=== PATIENT | male | born 1960 | race Caucasian/White ===

== ENCOUNTER 2016-06-03 09:09 | Outpatient (CLI) | payer MEDICAID | END 2016-06-03 09:10 | disposition home or self-care (01) | DX: E78.5 Hyperlipidemia, unspecified (principal); K43.9 Ventral hernia without obstruction or gangrene; E55.9 Vitamin D deficiency, unspecified ==

== ENCOUNTER 2016-09-28 08:00 | Outpatient (CLI) | payer MEDICAID ==
[2016-09-28 12:59] LABS: ALBUMIN/GLOBULIN RATIO 1.2 (1.0-2.2); BILIRUBIN,TOTAL 0.5 mg/dL (0.2-1.0); CALCIUM 8.8 mg/dL (8.5-10.3); CREATININE 0.9 mg/dL (0.6-1.2); POTASSIUM 3.9 mmol/L (3.5-5.0); TOTAL PROTEIN 7.3 g/dL (6.7-8.2)
[2016-09-28 13:10] LABS: HEMOGLOBIN A1C 0.83 g/dL
== END 2016-09-28 08:01 | disposition home or self-care (01) ==
LOC: LAB.N 08:00
PROVIDERS: ATTEND Family Medicine
DX: E11.9 Type 2 diabetes mellitus without complications (principal)
CPT/HCPCS: 36415; 80053; 83036

== ENCOUNTER 2017-01-04 08:00 | Outpatient (CLI) | payer MEDICAID ==
[2017-01-04 13:03] LABS: HEMOGLOBIN A1C 1.09 g/dL
[2017-01-04 14:22] LABS: CALCIUM 9.1 mg/dL (8.5-10.3)
[2017-01-04 14:34] LABS: ALBUMIN/GLOBULIN RATIO 1.1 (1.0-2.2); BILIRUBIN,TOTAL 0.5 mg/dL (0.2-1.0); CREATININE 0.8 mg/dL (0.6-1.2); TOTAL PROTEIN 7.6 g/dL (6.7-8.2)
== END 2017-01-04 08:01 | disposition home or self-care (01) ==
LOC: LAB.N 08:00
PROVIDERS: ATTEND Family Medicine
DX: Z87.898 Personal history of other specified conditions (principal)
CPT/HCPCS: 36415; 80053; 83036

== ENCOUNTER 2017-02-18 08:49 | Outpatient (CLI) | payer MEDICAID ==
--- NOTE | 2017-02-18 12:36 | XRAY Report ---
LUMBAR SPINE: 02/18/2017 COMPARISON: Lumbar spine 04/22/2009. INDICATION: Low back pain. TECHNIQUE: Three views of the lumbar spine. FINDINGS: Normal alignment. There is no evidence of acute fracture. No significant degenerative findings. Calcified gallstones are noted. IMPRESSION: CALCIFIED GALLSTONES. OTHERWISE NEGATIVE LUMBAR SPINE. JOB #: [id number] EXT JOB #: [id number] [facility]
== END 2017-02-18 08:50 | disposition home or self-care (01) ==
LOC: DI.N 08:49
PROVIDERS: ATTEND Family Medicine
DX: K80.80 Other cholelithiasis without obstruction (principal)
CPT/HCPCS: 72100

== ENCOUNTER 2017-05-20 08:34 | Outpatient (CLI) | payer MEDICAID ==
[2017-05-20 13:54] LABS: HB2 TOTAL 13.8 g/dL; HEMOGLOBIN A1C 1.33 g/dL
[2017-05-20 14:05] LABS: ALBUMIN/GLOBULIN RATIO 1.1 (1.0-2.2); BILIRUBIN,TOTAL 0.6 mg/dL (0.2-1.0); CALCIUM 8.6 mg/dL (8.5-10.3); CREATININE 0.8 mg/dL (0.6-1.2); TOTAL PROTEIN 7.6 g/dL (6.7-8.2)
[2017-05-21 10:21] LABS: HEPATITIS C ANTIBODY NON-REACTIVE (NON-REACTIVE)
[2017-05-21 10:22] LABS: HEPATITIS B SURFACE ANTIGEN NON-REACTIVE (NON-REACTIVE)
== END 2017-05-20 08:35 | disposition home or self-care (01) ==
LOC: LAB.N 08:34
PROVIDERS: ATTEND Family Medicine
DX: E11.9 Type 2 diabetes mellitus without complications (principal); R74.0 Nonspecific elevation of levels of transaminase and lactic acid dehydrogenase [LDH]; F10.10 Alcohol abuse, uncomplicated
CPT/HCPCS: 36415; 80053; 83036; 83540; 84466; 86317; 86704; 86709; 86803; 87340

== ENCOUNTER 2017-07-08 10:06 | Outpatient (CLI) | payer MEDICAID ==
--- NOTE | 2017-07-08 13:33 | XRAY Report ---
THREE-VIEW RIGHT HAND: 07/08/2017 CLINICAL INDICATION: Pain. FINDINGS: AP, lateral, and oblique views of the right hand demonstrate no evidence of fracture or dislocation. The joint spaces are preserved. No radiopaque foreign body is seen in the soft tissues. IMPRESSION: NORMAL RIGHT HAND. TD: 07/08/2017 13:32
== END 2017-07-08 10:07 | disposition home or self-care (01) ==
LOC: DI.N 10:06
PROVIDERS: ATTEND Family Medicine
DX: M79.641 Pain in right hand (principal)

== ENCOUNTER 2017-08-11 08:19 | Emergency (ER) | payer MEDICAID ==
[2017-08-11] MEDS ORDERED: BACITRACIN OINT TOP STA (09:17)
[2017-08-11] MEDS ORDERED: IBUPROFEN 400 MG TABLET PO STA (09:17)
[2017-08-11] MEDS ORDERED: TETANUS/DIPHTHERIA/PERTUSSIS 0.5 ML SYRINGE IM ONE (09:17)
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
[2017-08-11 10:44] VITALS: BP 173/100
== END 2017-08-11 10:45 | disposition home or self-care (01) ==
LOC: ED 08:19
DX: T21.12XA Burn of first degree of abdominal wall, initial encounter (principal); T24.102A Burn of first degree of unspecified site of left lower limb, except ankle and foot, initial encounter; S00.12XA Contusion of left eyelid and periocular area, initial encounter; X03.3XXA Fall due to controlled fire, not in building or structure, initial encounter; Z23 Encounter for immunization; I10 Essential (primary) hypertension; E78.00 Pure hypercholesterolemia, unspecified; J44.9 Chronic obstructive pulmonary disease, unspecified; K21.9 Gastro-esophageal reflux disease without esophagitis; M19.90 Unspecified osteoarthritis, unspecified site; M10.9 Gout, unspecified; Z98.84 Bariatric surgery status; Z87.891 Personal history of nicotine dependence
CPT/HCPCS: 90471; 90715; 99283; A9270

== ENCOUNTER 2017-08-19 08:00 | Outpatient (CLI) | payer MEDICAID | END 2017-08-19 08:01 | disposition home or self-care (01) | LOC: LAB.R 08:00 | PROVIDERS: ATTEND Family Medicine | DX: L03.116 Cellulitis of left lower limb (principal); T24.202A Burn of second degree of unspecified site of left lower limb, except ankle and foot, initial encounter | CPT/HCPCS: 87070; 87075; 87181; 87205 ==

== ENCOUNTER 2017-09-30 10:41 | Outpatient (CLI) | payer MEDICAID ==
[2017-09-30 14:10] LABS: HB2 TOTAL 13.8 g/dL; HEMOGLOBIN A1C 1.3 g/dL; HEMOGLOBIN A1C % 10.8 % (4.6-6.2)
[2017-09-30 14:22] LABS: ALKALINE PHOSPHATASE 68 IU/L (42-121); ALT ALANINE AMINOTRANSFERASE 65 IU/L (10-60); AST ASPARTATE AMINOTRANSFERASE 51 IU/L (10-42); BILIRUBIN,TOTAL 0.8 mg/dL (0.2-1.0); BUN - BLOOD UREA NITROGEN 15 mg/dL (6-20); CALCIUM 8.9 mg/dL (8.5-10.3); CARBON DIOXIDE - CO2 24 mmol/L (21-32); CHLORIDE 99 mmol/L (101-111); CHOL/HDL RATIO 3.7 (<5.0); CHOLESTEROL 208 mg/dL; CREATININE 0.7 mg/dL (0.6-1.2); GFR - MDRD 116 (>89); GLUCOSE 247 mg/dL (70-100); HDL CHOLESTEROL 56 mg/dL; LDL CHOLESTEROL,CALCULATED 101 mg/dL; LDL/HDL RATIO 1.8 (<3.6); SODIUM 133 mmol/L (135-145); TOTAL PROTEIN 7.9 g/dL (6.7-8.2); VLDL CHOLESTEROL 51 mg/dL
== END 2017-09-30 10:42 | disposition home or self-care (01) ==
LOC: LAB.N 10:41
PROVIDERS: ATTEND Family Medicine
DX: E78.5 Hyperlipidemia, unspecified (principal); E11.9 Type 2 diabetes mellitus without complications
CPT/HCPCS: 36415; 80053; 80061; 83036; 83721

== ENCOUNTER 2017-10-25 11:12 | Outpatient (CLI) | payer MEDICAID ==
--- NOTE | 2017-10-25 16:55 | Ultrasound Report ---
Procedure Date: 10/25/2017 Accession Number: [id number] / [id number] Procedure: US - Abdomen Limited CPT Code: FULL RESULT: EXAM: ABDOMEN ULTRASOUND LIMITED, RIGHT UPPER QUADRANT. EXAM DATE: 10/25/2017 12:23 PM. CLINICAL HISTORY: Hernia of anterior abdominal wall. COMPARISON: None. TECHNIQUE: Real-time scanning was performed with static images obtained. FINDINGS: Focal grayscale ultrasound of the palpable abdominal mass was performed. There is a 2.6 cm abdominal wall defect containing fat. IMPRESSION: Fat-containing umbilical hernia. RADIA
== END 2017-10-25 11:13 | disposition home or self-care (01) ==
LOC: DI 11:12
PROVIDERS: ATTEND Family Medicine
DX: K43.9 Ventral hernia without obstruction or gangrene (principal); K42.9 Umbilical hernia without obstruction or gangrene
CPT/HCPCS: 76705

== ENCOUNTER 2017-12-09 09:15 | Outpatient (CLI) | payer MEDICAID ==
[2017-12-09 12:44] LABS: HB2 TOTAL 13.6 g/dL; HEMOGLOBIN A1C 1.2 g/dL; HEMOGLOBIN A1C % 10.2 % (4.6-6.2)
== END 2017-12-09 09:16 | disposition home or self-care (01) ==
LOC: LAB.N 09:15
PROVIDERS: ATTEND Nurse Practitioner
DX: E11.65 Type 2 diabetes mellitus with hyperglycemia (principal)
CPT/HCPCS: 36415; 83036

== ENCOUNTER 2018-04-04 08:00 | Outpatient (CLI) | payer MEDICAID ==
[2018-04-04 12:32] LABS: CALCIUM 9.3 mg/dL (8.5-10.3); CREATININE 0.8 mg/dL (0.6-1.2)
[2018-04-04 12:44] LABS: HEMOGLOBIN A1C 1.19 g/dL; HEMOGLOBIN A1C % 9.4 % (4.6-6.2)
== END 2018-04-04 23:59 | disposition home or self-care (01) ==
LOC: LAB.N 08:00
PROVIDERS: ATTEND Physician Assistant Medical
DX: E11.65 Type 2 diabetes mellitus with hyperglycemia (principal); Z79.4 Long term (current) use of insulin
CPT/HCPCS: 36415; 80048; 83036

== ENCOUNTER 2018-07-25 08:00 | Outpatient (CLI) | payer MEDICAID ==
[2018-07-25 13:04] LABS: HB2 TOTAL 14.3 g/dL; HEMOGLOBIN A1C 1.1 g/dL; HEMOGLOBIN A1C % 9.2 % (4.6-6.2)
== END 2018-07-25 23:59 | disposition home or self-care (01) ==
LOC: LAB.N 08:00
PROVIDERS: ATTEND Physician Assistant Medical
DX: E11.65 Type 2 diabetes mellitus with hyperglycemia (principal)
CPT/HCPCS: 36415; 83036

== ENCOUNTER 2018-12-05 08:00 | Outpatient (CLI) | payer MEDICAID ==
[2018-12-05 12:59] LABS: HB2 TOTAL 13.4 g/dL; HEMOGLOBIN A1C 0.88 g/dL; HEMOGLOBIN A1C % 8.2 % (4.6-6.2)
== END 2018-12-05 23:59 | disposition home or self-care (01) ==
LOC: LAB.N 08:00
PROVIDERS: ATTEND Physician Assistant Medical
DX: E11.8 Type 2 diabetes mellitus with unspecified complications (principal)
CPT/HCPCS: 36415; 83036

== ENCOUNTER 2019-01-09 08:48 | Outpatient (CLI) | payer MEDICAID ==
[2019-01-09] MEDS ORDERED: IOVERSOL 320 50 ML VIAL ONE (09:07)
[2019-01-09] MEDS ORDERED: IOVERSOL 320 100 ML VIAL IVP ONE (09:07)
[2019-01-09 09:12] LABS: CREATININE 0.8 mg/dL (0.6-1.2)
--- NOTE | 2019-01-09 13:51 | CT Report ---
Reason: RECURRENT INCISIONAL HERNIA Procedure Date: 01/09/2019 Accession Number: [id number] / [id number] Procedure: CT - Abdomen/Pelvis W CPT Code: FULL RESULT: EXAM: CT ABDOMEN AND PELVIS EXAM DATE: 01/09/2019 10:35 AM. CLINICAL HISTORY: RECURRENT INCISIONAL HERNIA. COMPARISONS: ABDOMEN/PELVIS W/ 07/27/2013 1:46 PM. TECHNIQUE: Routine helical CT imaging was performed through the abdomen and pelvis. IV contrast: OPTI 320 90ML. Enteric contrast: No. Reconstructions: Coronal and sagittal. In accordance with CT protocol optimization, one or more of the following dose reduction techniques were utilized for this exam: automated exposure control, adjustment of mA and/or KV based on patient size, or use of iterative reconstructive technique. FINDINGS: Lung Bases: No pleural effusion. Small hiatal hernia. Liver: Fatty infiltration. No masses. Gallbladder/Bile Ducts: Cholelithiasis. Spleen: Normal. Pancreas: Normal. Adrenal Glands: Normal. Kidneys: Several tiny cysts are present. No masses, stones, or hydronephrosis. Peritoneal Cavity/Bowel: No free fluid, free air or adenopathy. No masses or acute inflammatory process. There has been repair of the dominant ventral hernia defect seen on the 07/27/2013 CT; this repair appears intact 06/09. Inferior to this is a 1.2 cm midline anterior abdominal wall fat-containing defect. This defect lies immediately superior to surgical sutures from an earlier hernia repair and was present on the prior CT. A 1.5 cm left periumbilical dehiscent cyst seen in the anterior abdominal wall present on the prior study but more apparent today. Pelvic Organs: The bladder and pelvic organs are unremarkable except for prostate calcification. Bilateral fat-containing inguinal hernias are similar to prior. Vasculature: No aneurysms. Atherosclerotic vascular calcification.. Bones: No significant abnormality. Other: None. IMPRESSION: 1. Compared with 07/27/2013 the dominant ventral hernia defect has been repaired and the repair appears intact. 2. 2 small defects, one in the supraumbilical midline location and the other in the left periumbilical location are similar in size to the preceding study. 3. No new hernia defects are seen. 4. Changes of an anterior abdominal wall hernia repair prior to 2013 are again seen. 5. Cholelithiasis 6. Small renal cysts. 7. Other incidental findings as above RADIA
[2019-01-09] MEDS: IOVERSOL 320 100 ML VIAL IVP ONE (15:14)
[2019-01-09] MEDS: IOVERSOL 320 50 ML VIAL PO ONE (15:18)
== END 2019-01-09 08:49 | disposition home or self-care (01) ==
LOC: DI 08:48
PROVIDERS: ATTEND Surgery
DX: K43.2 Incisional hernia without obstruction or gangrene (principal); K80.20 Calculus of gallbladder without cholecystitis without obstruction; Q61.02 Congenital multiple renal cysts
CPT/HCPCS: 36415; 74177; 82565; Q9967

== ENCOUNTER 2019-02-20 08:00 | Outpatient (CLI) | payer MEDICAID ==
[2019-02-20 13:21] LABS: CALCIUM 9.1 mg/dL (8.5-10.3); CREATININE 0.8 mg/dL (0.6-1.2)
[2019-02-20 14:34] LABS: HB2 TOTAL 12.9 g/dL; HEMOGLOBIN A1C 0.96 g/dL
== END 2019-02-20 23:59 | disposition home or self-care (01) ==
LOC: LAB.N 08:00
PROVIDERS: ATTEND Physician Assistant Medical
DX: E11.65 Type 2 diabetes mellitus with hyperglycemia (principal); Z79.4 Long term (current) use of insulin
CPT/HCPCS: 36415; 80048; 82043; 82570; 83036

== ENCOUNTER 2019-04-18 06:02 | Day surgery (SDC) | payer MEDICAID ==
[2019-04-18] MEDS ORDERED: LACTATED RINGERS 1,000 ML IV ONE (07:05)
[2019-04-18] MEDS ORDERED: LIDO GARGLE 30 ML BOTTLE ONE (07:38)
--- NOTE | 2019-04-18 09:54 | ANESTHESIA ---
Pre-Anesthesia VS, & Labs - Diagnosis barrets esophagus, polyps - Procedure egd colonoscopy Vital Signs: Temp Pulse Resp BP Pulse Ox 36.3 C L 74 18 170/88 H 96 04/18/19 06:33 04/18/19 06:33 04/18/19 06:33 04/18/19 06:33 04/18/19 06:33 Height 5 ft 9 in Weight (kg) 98 kg Body Mass Index 32.5 - Lab Results Current Lab Results: Laboratory Tests 04/18/19 06:49: POC Whole Bld Glucose 153 H Home Medications and Allergies Home Medications: Ambulatory Orders Insulin Aspart Prot/Insuln Asp [Novolog Mix 70-30 Flexpen] 8 units SQ TID 04/18/19 Insulin Glargine [Lantus Solostar] 78 units SQ DAILY 04/18/19 Ipratropium [place] [Atrovent Hfa] 1 puffs PO DAILY 04/18/19 amLODIPine [Norvasc] 5 mg PO DAILY 04/18/19 Albuterol Sulfate [Ventolin Hfa] 8 gm IH QID PRN 12/07/13 Ibuprofen 200 mg PO DAILY PRN 12/07/13 Ipratropium [place] [Atrovent Hfa] 12.9 gm IH QID PRN 12/07/13 Loratadine [Claritin] 10 mg PO DAILY 12/07/13 Nitroglycerin [Nitrostat] 0.4 mg SL ONCE PRN 12/07/13 Nortriptyline [Pamelor] 50 mg PO HS 12/07/13 lisinopriL [Lisinopril] 30 mg PO DAILY 12/07/13 Atorvastatin [Lipitor] 40 mg PO DAILY 03/09/16 Omeprazole 1 cap PO DAILY 08/11/17 Insulin Aspart Prot/Insuln Asp [Novolog Mix 70-30 Flexpen] 8 units SQ TID 04/18/19 Insulin Glargine [Lantus Solostar] 78 units SQ DAILY 04/18/19 Ipratropium [place] [Atrovent Hfa] 1 puffs PO DAILY 04/18/19 amLODIPine [Norvasc] 5 mg PO DAILY 04/18/19 Allergies/Adverse Reactions: Allergies Allergy/AdvReac Type Severity Reaction Status Date / Time coconut oil AdvReac Intermediate Nausea Verified 12/07/13 08:33 Anes History & Medical History - Anesthetic History Anesthesia Complications: reports: No previous complications Family history of Anesthesia Complications: Denies Family history of Malignant Hyperthermia: Denies - Medical History Cardiovascular: reports: Hypertension, High cholesterol Pulmonary: reports: Asthma, COPD, Shortness of breath Gastrointestinal: reports: GERD, Hiatal hernia, Other Urinary: reports: Nocturia Neuro: reports: None Musculoskeletal: reports: Osteoarthritis, Gout, Chronic back pain Endocrine/Autoimmune: reports: Type 2 diabetes Blood Disorders: reports: None Skin: reports: None Smoking Status: Former smoker (quit 6 years ago) Psychosocial: reports: Alcohol (beer), Cannabis - Surgical History General: Colonoscopy, EGD, Other (reports some abdominal surgery for esophagus, appears to be vikram fundoplication also ventral hernia repair) Eyes Ears Nose Throat (EENT): Tonsil/Adenoidectomy Exam General: Alert, Oriented x3, Cooperative, No acute distress Dental: WNL Mouth Openin Fingerbreadth Neck Mobility: Normal Mallampati classification: III Thyromental Distance: less than 4 cm Respiratory: Lungs clear, Normal breath sounds, No respiratory distress, No accessory muscle use Cardiovascular: Regular rate, Normal S1, Normal S2, No murmurs Abdomen: Normal bowel sounds, Soft, No tenderness, No hepatospenomegaly, No masses Extremities: No clubbing, No cyanosis, No edema, Normal pulses, No tenderness/swelling Neurological: Normal gait, Normal speech, Strength at 5/5 X4 ext, Normal tone, Sensation intact, Cranial nerves 3-12 NL, Reflexes 2+ Mental/Cognitive Status: Alert/Oriented X3, Normal for patient Cognitive Status: Within normal limits Plan Anesthesia Type: MAC Consent for Procedure(s) Verified and Reviewed: Yes Code Status: Attempt Resuscitation ASA classification: 3-Severe systemic disease Is this case an emergency?: No
[2019-04-18] MEDS ORDERED: LIDOCAINE-MPF 2% 5 ML VIAL IM ONE (10:05)
[2019-04-18] MEDS ORDERED: PROPOFOL 200 MG/20 ML VIAL IVP ONE (10:05)
[2019-04-18] MEDS ORDERED: MIDAZOLAM 2 MG/2 ML VIAL IVP ONE (10:05)
[2019-04-18] MEDS ORDERED: LIDO GARGLE 30 ML BOTTLE PO ONE (10:16)
[2019-04-18] MEDS ORDERED: IPRATROPIUM/ALBUTEROL 3 ML NEB INH ONE (10:49)
[2019-04-18 11:27] VITALS: BP 179/92
--- NOTE | 2019-04-18 13:04 | OPERATIVE REPORT ---
Operative Report - General Planned Procedure: 1. EGD with biopsies 2. Surveillance Colonoscopy Pre-Op Diagnosis: 1. History of Caldwell's Esophagus 2. History of Colon Polyps Procedure Performed: 1. EGD with biopsies 2. Colonoscopy with biopsies Post Op Diagnosis: same - Procedure Note Primary Surgeon: Jane Peck MD Anesthesia Provider: Cornelia Ibarra CRNA Anesthesia Technique: MAC Pathology: 1. GEJ biopsies 2. Sigmoid polyp - Other Other Information/Narrative: The patient was brought to the GI suite and placed in the left lateral decubitus position on the examination table. After placement of appropriate monitors, the patient was given incremental doses of Versed and Fentanyl until an appropriate level of sedation was achieved. A time out was held per SCOAP protocol. A bite block was gently placed between the patient's teeth. The endoscope was lubricated and then passed into the patient's posterior oropharynx. The esophagus was cannulated under direct vision and the scope was passed to the second portion of the duodenum with some difficulty due to desaturations from patient so scope was withdrawn and he improved rapidly. The scope is then reinserted and he tolerated advancement better so we proceeded. The scope was then withdrawn with careful examination of all areas of the upper GI tract and mucosa. In the stomach, the instrument was retroflexed and the GE junction examined. His previous wrap appears intact. Stomach and duodenal mucosa is normal. The GEJ, at 35cm from the teeth, appears consistent with Caldwell's esophagus with small tongues of salmon colored tissue extending 1-2 cm max and over half of the circumference. Biopsies are taken of the quadrants and abnormal tissue. The scope was straightened and the procedure continued with examination of the remainder of the upper GI tract. Findings are noted above. Air was aspirated from the stomach and the endoscope gently removed from the esophagus. The patient was allowed to awaken from sedation without difficulty and taken to the post-anesthesia care unit in good condition. Air was aspirated from the stomach and the endoscope gently removed from the esophagus. The examination table was turned and we continued with the colonoscopy. A digital rectal examination was performed and did not reveal any masses or obstructing lesions nor external hemorrhoids. The colonoscope was gently passed into the patient's anus and the entire colon navigated to the level of the cecum with minimal difficulty. Prep was adequate with some areas of green liquid and extensive bubbles, most of which could be cleared. Once in the cecum, the scope was slowly withdrawn being sure to go before and beyond all mucosal folds and prominences as able to get a thorough examination. A diminutive 1mm polyp is noted in the sigmoid colon and is removed for biopsy with cold biopsy forceps. Other findings include a few small diverticula. At the level of the rectal vault, the scope was retroflexed and the internal anal canal was examined. The scope was straightened and air aspirated from the colon. The instrument was removed from the patient's body and the procedure was concluded. The patient was allowed to awaken from sedation without difficulty and taken to the post-anesthesia care unit in good condition.
== END 2019-04-18 06:03 | disposition home or self-care (01) ==
LOC: SDS 06:02
PROVIDERS: ATTEND Surgery
PROC: 0DBN8ZZ Excision of Sigmoid Colon, Via Natural or Artificial Opening Endoscopic (ICD-10-PCS; principal; 2019-04-18 07:30)
PROC: 0DB48ZX Excision of Esophagogastric Junction, Via Natural or Artificial Opening Endoscopic, Diagnostic (ICD-10-PCS; 2019-04-18 07:30)
DX: Z12.11 Encounter for screening for malignant neoplasm of colon (principal); K63.5 Polyp of colon; K57.30 Diverticulosis of large intestine without perforation or abscess without bleeding; K43.2 Incisional hernia without obstruction or gangrene; K22.70 Barrett's esophagus without dysplasia; E11.42 Type 2 diabetes mellitus with diabetic polyneuropathy; E11.65 Type 2 diabetes mellitus with hyperglycemia; Z79.4 Long term (current) use of insulin; J44.9 Chronic obstructive pulmonary disease, unspecified; I10 Essential (primary) hypertension; K21.9 Gastro-esophageal reflux disease without esophagitis; Z87.891 Personal history of nicotine dependence
CPT/HCPCS: 43239; 45380; A9270; J7120

== ENCOUNTER 2019-05-22 07:00 | Outpatient (CLI) | payer MEDICAID ==
[2019-05-22 12:18] LABS: CHOL/HDL RATIO 4.5 (<5.0); CHOLESTEROL 220 mg/dL; HDL CHOLESTEROL 49 mg/dL; LDL CHOLESTEROL,CALCULATED 130 mg/dL; LDL/HDL RATIO 2.7 (<3.6); VLDL CHOLESTEROL 41 mg/dL
== END 2019-05-22 23:59 | disposition home or self-care (01) ==
LOC: LAB.N 07:00
PROVIDERS: ATTEND Physician Assistant Medical
DX: E78.5 Hyperlipidemia, unspecified (principal)
CPT/HCPCS: 36415; 80061; 83721

== ENCOUNTER 2019-06-05 08:48 | Outpatient (CLI) | payer MEDICAID ==
[2019-06-05 12:33] LABS: CALCIUM 9.1 mg/dL (8.5-10.3); CREATININE 0.7 mg/dL (0.6-1.2)
[2019-06-05 12:59] LABS: HB2 TOTAL 13.8 g/dL; HEMOGLOBIN A1C 0.96 g/dL; HEMOGLOBIN A1C % 8.5 % (4.6-6.2)
== END 2019-06-05 23:59 | disposition home or self-care (01) ==
LOC: LAB.N 08:48
PROVIDERS: ATTEND Family Medicine
DX: E11.65 Type 2 diabetes mellitus with hyperglycemia (principal); Z79.4 Long term (current) use of insulin
CPT/HCPCS: 36415; 80048; 82043; 82570; 83036

== ENCOUNTER 2020-01-15 09:45 | Outpatient (CLI) | payer MEDICAID ==
--- NOTE | 2020-01-15 15:26 | XRAY Report ---
PROCEDURE: Lumbar Spine Complete INDICATIONS: LUMBAR RADICULOPATHY TECHNIQUE: 4 views of the lumbar spine were acquired. COMPARISON: None. FINDINGS: Bones: 5 [id number] vertebrae are present. There is normal bony alignment. No vertebral body compression fractures. No suspicious bony lesions. No pars interarticularis defects. Soft tissues: Overlying bowel gas pattern is normal. No suspicious soft tissue calcifications. IMPRESSION: No osseous lesion. If there is continued clinical concern for pathology, then MRI should be considere d for further evaluation. Reviewed by: Becca Howard MD, PhD on 01/15/2020 3:24 PM PST Approved by: Becca Howard MD, PhD on 01/15/2020 3:24 PM PST Station ID: [id number]
== END 2020-01-15 09:46 | disposition home or self-care (01) ==
LOC: DI 09:45
PROVIDERS: ATTEND Family Medicine
DX: M54.16 Radiculopathy, lumbar region (principal)
CPT/HCPCS: 72110

== ENCOUNTER 2020-05-09 18:25 | Outpatient (CLI) | payer MEDICAID | END 2020-05-09 18:26 | disposition critical access hospital (66) | LOC: EMS 18:25 | PROVIDERS: ATTEND Emergency Medicine | DX: R06.00 Dyspnea, unspecified (principal); R22.1 Localized swelling, mass and lump, neck; R14.0 Abdominal distension (gaseous) | CPT/HCPCS: A0425; A0427; A0999 ==

== ENCOUNTER 2020-05-09 18:46 | Emergency (ER) | payer MEDICAID ==
[2020-05-09] MEDS ORDERED: LABETALOL 20 MG/4 ML SYRINGE IVP STA ×2 (19:07→19:46)
--- NOTE | 2020-05-09 19:09 | ED Physician Documentation ---
PD HPI CHEST PAIN - Stated complaint Stated Complaint: CP/SOA - Chief complaint Chief Complaint: Cardiac - History obtained from History obtained from: Patient - Additional information Additional information: 59-year-old gentleman with history of hypertension and diabetes developed substernal chest pressure radiating to the left side and down the back about 1.5 hrs ago associated with shortness of breath and feeling like his throat is swelling. Review of Systems Ten Systems: 10 systems reviewed and negative Nose: denies: Rhinorrhea / runny nose, Congestion Throat: denies: Dental pain / toothache Cardiac: reports: Chest pain / pressure Respiratory: reports: Dyspnea PD PAST MEDICAL HISTORY - Past Medical History Cardiovascular: Hypertension, High cholesterol Respiratory: Asthma, COPD, Shortness of breath Neuro: None Endocrine/Autoimmune: Type 2 diabetes GI: GERD, Hiatal hernia, Other : Nocturia HEENT: Chronic vision loss, Chronic hearing loss Psych: Depression Musculoskeletal: Osteoarthritis, Gout, Chronic back pain Derm: None - Past Surgical History Past Surgical History: Yes General: Colonoscopy, EGD, Other (reports some abdominal surgery for esophagus, appears to be vikram fundoplication also ventral hernia repair) HEENT: Tonsil/Adenoidectomy - Present Medications Home Medications: Ambulatory Orders Medication Instructions Recorded Confirmed Albuterol Sulfate [Ventolin Hfa] 8 gm IH QID PRN 12/07/13 04/18/19 Ibuprofen 200 mg PO DAILY PRN 12/07/13 04/18/19 Ipratropium [place] [Atrovent Hfa] 12.9 gm IH QID PRN 12/07/13 04/18/19 Loratadine [Claritin] 10 mg PO DAILY 12/07/13 04/18/19 Nitroglycerin [Nitrostat] 0.4 mg SL ONCE PRN 12/07/13 04/18/19 Nortriptyline [Pamelor] 50 mg PO HS 12/07/13 04/18/19 lisinopriL [Lisinopril] 30 mg PO DAILY 12/07/13 04/18/19 Atorvastatin [Lipitor] 40 mg PO DAILY 03/09/16 04/18/19 Omeprazole 1 cap PO DAILY 08/11/17 04/18/19 Insulin Aspart Prot/Insuln Asp 8 units SQ TID 04/18/19 04/18/19 [Novolog Mix 70-30 Flexpen] Insulin Glargine [Lantus Solostar] 78 units SQ DAILY 04/18/19 04/18/19 Ipratropium [place] [Atrovent Hfa] 1 puffs PO DAILY 04/18/19 04/18/19 amLODIPine [Norvasc] 5 mg PO DAILY 04/18/19 04/18/19 - Allergies Allergies/Adverse Reactions: Allergies Allergy/AdvReac Type Severity Reaction Status Date / Time coconut oil AdvReac Intermediate Nausea Verified 05/09/20 19:01 - Social History Does the pt smoke?: No Smoking Status: Former smoker (quit 6 years ago) Does the pt drink ETOH?: Yes Does the pt have substance abuse?: No - POLST Patient has POLST: No PD ED PE NORMAL - Vitals Vital signs reviewed: Yes - General General: Alert and oriented X 3 (He is sweaty pale and appears to be in distress) - HEENT HEENT: PERRL, EOMI - Neck Neck: Supple, no meningeal sign, No bony TTP - Cardiac Cardiac: RRR, No murmur - Respiratory Respiratory: No respiratory distress, Clear bilaterally - Abdomen Abdomen: Non tender - Derm Derm: Other (v sweaty) - Extremities Extremities: No deformity, No tenderness to palpate, Normal ROM s pain - Neuro Neuro: Alert and oriented X 3, Normal speech Results - Vitals Vitals: Vital Signs - 24 hr 05/09/20 05/09/20 05/09/20 18:58 19:15 19:29 Temperature 36.1 C L 36.5 C Heart Rate 88 90 72 Respiratory 27 H 22 Rate Blood Pressure 154/109 H 147/96 H O2 Saturation 99 98 98 05/09/20 05/09/20 05/09/20 19:32 19:37 19:39 Temperature Heart Rate 72 78 Respiratory Rate Blood Pressure 158/136 H 135/98 H 160/129 H O2 Saturation 100 96 05/09/20 05/09/20 05/09/20 19:40 19:42 19:46 Temperature Heart Rate 132 H 83 Respiratory Rate Blood Pressure 162/94 H 192/123 H 172/123 H O2 Saturation 91 L 95 05/09/20 05/09/20 05/09/20 19:50 19:51 19:56 Temperature Heart Rate 64 71 77 Respiratory 16 Rate Blood Pressure 154/100 H 154/100 H O2 Saturation 99 97 05/09/20 05/09/20 05/09/20 20:03 20:10 20:14 Temperature Heart Rate 68 75 72 Respiratory 16 Rate Blood Pressure 220/124 H 195/140 H O2 Saturation 99 100 05/09/20 05/09/20 05/09/20 20:16 20:24 20:31 Temperature Heart Rate 61 71 69 Respiratory 16 15 Rate Blood Pressure 210/95 H 133/92 H 217/104 H O2 Saturation 98 100 100 05/09/20 05/09/20 20:37 21:57 Temperature Heart Rate 60 64 Respiratory 15 Rate Blood Pressure 151/80 H O2 Saturation 100 Oxygen O2 Source Mechanical ventilator - EKG (time done) 1851 Rate: Rate (enter#) (85) Rhythm: NSR [place]: Normal Intervals: Normal [place] Ischemia: Other (inferior Q waves and abnormal R wave progression). No: ST elevation c/w ischemia Computer interpretation: Agree with computer - Labs Labs: Laboratory Tests 05/09/20 05/09/20 05/09/20 19:06 19:15 19:15 WBC 10.1 RBC 4.87 Hgb 13.2 L Hct 44.0 MCV 90.3 MCH 27.1 MCHC 30.0 L RDW 16.0 H Plt Count 357 MPV 10.0 Neut # (Auto) 6.8 H Lymph # (Auto) 2.3 Hale # (Auto) 0.7 Eos # (Auto) 0.2 Baso # (Auto) 0.1 Absolute Nucleated RBC 0.00 Nucleated RBC % 0.0 PT INR Bld Gas Analysis Time Sample Site ABG pH ABG pCO2 ABG pO2 ABG HCO3 ABG Total CO2 ABG O2 Saturation ABG Base Excess Omi Test Respiration Rate O2 Delivery Device Vent Mode Tidal Volume PEEP Pressure Support Vent Sodium 136 Potassium 4.1 Chloride 99 L Carbon Dioxide 21 Anion Gap 16.0 H BUN 15 Creatinine 1.0 Estimated GFR (MDRD) 76 L Glucose 144 H Lactic Acid Calcium 9.1 Magnesium 2.0 Total Bilirubin 0.4 AST 23 ALT 28 Alkaline Phosphatase 69 Troponin I High Sens 14.9 Total Protein 7.9 Albumin 4.1 Globulin 3.8 Albumin/Globulin Ratio 1.1 Lipase 82 H Nasal Adenovirus (PCR) Nasal B. parapertussis DNA (PCR) Nasal Coronavir 229E PCR Nasal Coronavir HKU1 PCR Nasal Coronavir NL63 PCR Nasal Coronavir OC43 PCR Nasal Enterovir/Rhinovir PCR Nasal Influenza B PCR Nasal Influenza A PCR Nasal Parainfluen 1 PCR Nasal Parainfluen 2 PCR Nasal Parainfluen 3 PCR Nasal Parainfluen 4 PCR Nasal RSV (PCR) Nasal B.pertussis DNA PCR Nasal C.pneumoniae (PCR) Nacho Human Metapneumo PCR Nasal M.pneumoniae (PCR) Nasal SARS-CoV-2 (PCR) Ethyl Alcohol 05/09/20 05/09/20 05/09/20 19:15 20:22 20:22 WBC RBC Hgb Hct MCV MCH MCHC RDW Plt Count MPV Neut # (Auto) Lymph # (Auto) Hale # (Auto) Eos # (Auto) Baso # (Auto) Absolute Nucleated RBC Nucleated RBC % PT 13.0 H INR 1.2 Bld Gas Analysis Time Sample Site ABG pH ABG pCO2 ABG pO2 ABG HCO3 ABG Total CO2 ABG O2 Saturation ABG Base Excess Omi Test Respiration Rate O2 Delivery Device Vent Mode Tidal Volume PEEP Pressure Support Vent Sodium Potassium Chloride Carbon Dioxide Anion Gap BUN Creatinine Estimated GFR (MDRD) Glucose Lactic Acid 1.5 Calcium Magnesium Total Bilirubin AST ALT Alkaline Phosphatase Troponin I High Sens Total Protein Albumin Globulin Albumin/Globulin Ratio Lipase Nasal Adenovirus (PCR) Nasal B. parapertussis DNA (PCR) Nasal Coronavir 229E PCR Nasal Coronavir HKU1 PCR Nasal Coronavir NL63 PCR Nasal Coronavir OC43 PCR Nasal Enterovir/Rhinovir PCR Nasal Influenza B PCR Nasal Influenza A PCR Nasal Parainfluen 1 PCR Nasal Parainfluen 2 PCR Nasal Parainfluen 3 PCR Nasal Parainfluen 4 PCR Nasal RSV (PCR) Nasal B.pertussis DNA PCR Nasal C.pneumoniae (PCR) Nacho Human Metapneumo PCR Nasal M.pneumoniae (PCR) Nasal SARS-CoV-2 (PCR) Ethyl Alcohol 7.2 05/09/20 05/09/20 20:25 20:40 WBC RBC Hgb Hct MCV MCH MCHC RDW Plt Count MPV Neut # (Auto) Lymph # (Auto) Hale # (Auto) Eos # (Auto) Baso # (Auto) Absolute Nucleated RBC Nucleated RBC % PT INR Bld Gas Analysis Time 2041 Sample Site RIGHT RADIAL ABG pH 7.37 ABG pCO2 39 ABG pO2 212 H* ABG HCO3 21.6 L ABG Total CO2 22.7 ABG O2 Saturation 99 H ABG Base Excess -3.4 L Omi Test POSITIVE Respiration Rate 15 O2 Delivery Device VENTILATOR Vent Mode SIMV Tidal Volume 500 PEEP 5 Pressure Support Vent 10 Sodium Potassium Chloride Carbon Dioxide Anion Gap BUN Creatinine Estimated GFR (MDRD) Glucose Lactic Acid Calcium Magnesium Total Bilirubin AST ALT Alkaline Phosphatase Troponin I High Sens Total Protein Albumin Globulin Albumin/Globulin Ratio Lipase Nasal Adenovirus (PCR) NOT DETECTED Nasal B. parapertussis DNA (PCR) NOT DETECTED Nasal Coronavir 229E PCR NOT DETECTED Nasal Coronavir HKU1 PCR NOT DETECTED Nasal Coronavir NL63 PCR NOT DETECTED Nasal Coronavir OC43 PCR NOT DETECTED Nasal Enterovir/Rhinovir PCR NOT DETECTED Nasal Influenza B PCR NOT DETECTED Nasal Influenza A PCR NOT DETECTED Nasal Parainfluen 1 PCR NOT DETECTED Nasal Parainfluen 2 PCR NOT DETECTED Nasal Parainfluen 3 PCR NOT DETECTED Nasal Parainfluen 4 PCR NOT DETECTED Nasal RSV (PCR) NOT DETECTED Nasal B.pertussis DNA PCR NOT DETECTED Nasal C.pneumoniae (PCR) NOT DETECTED Nacho Human Metapneumo PCR NOT DETECTED Nasal M.pneumoniae (PCR) NOT DETECTED Nasal SARS-CoV-2 (PCR) NOT DETECTED Ethyl Alcohol - Rads (name of study) CT angiography of the chest abdomen and pelvis Radiology: EMP read contemporaneously (Extensive mediastinal, upper chest, and neck subcutaneous emphysema likely due to his distal esophageal rupture. Impacted foreign body, neoplasm, incarcerated hiatal hernia, or peptic ulcer disease are also on the differential. There is a trace pericardial effusion and incidental cholelithiasis.) 1v CXR for ETT and NGT Radiology: EMP read contemporaneously (Adequate position of support tubes, other findings noted on above CT.) Procedures - Intubation Provider: Emergency physician Medications: Propofol (100mg IVP), Rocuronium (40mg IVP) Blade: Gee (4) Tube: Size-enter number (7.5), Cuffed, Marked at lips-enter cm (23) Route: Oral Confirmation: Direct visualization, Bilateral breath sounds Complications: No compications PD MEDICAL DECISION MAKING - ED course ED course: 59-year-old gentleman with chest pain associated with side pain and shortness of breath. He felt like his throat was swelling but oropharyngeal exam looked normal. He felt like it was more the anterior throat that was swelling. He was ill-appearing and agitated and on the differential was dissection so he got some labetalol and headed over to CT. On the initial time in CT he was agitated sweaty and could not lay still. He pulled out his IV. He was brought back over to the ER, 2 IVs were placed and he was intubated for airway protection and so he could be sedated to complete the work-up. 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 I do not see an associated pneumothorax. He has pericardial air. His sister was in the department and this was discussed with her. She is available at either [phone] or [phone]. She gave further history that he had not been vomiting, so I do not know why he developed this. She agreed with transfer to [facility] in [place] for higher level of care noting that he would need to go to a hospital that has cardiothoracic surgery, potentially pulmonology, potentially GI. He was administered 4.5 g of Zosyn. Accepted by Dr. Adiel Barajas to [facility] ICU at approximately 9:15 PM. He will consult with the surgeon there. Subsequently notified that he cannot go via air transport due to weather and he will have to be transported by ground. Subsequently the cardiothoracic surgeon, Jeanne Lechuga, from [place] called me and we went over his chart together. She recommended adding vancomycin and fluconazole to the Zosyn that was already given. 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 - Critical Care Time(min): 60 Time Includes: Direct patient care, Review records, Reassess patient, Document care, Coordinate care, Medical consult, Family consult for [facility] Data interpretation: Labs, Pulse ox, ABG Procedures included in critical care time: Peripheral IV Procedures excluded from critical care time: Intubation, EKG Departure - Departure Disposition: 02 Transfer Acute Care Hosp Clinical Impression: Boerhaave's syndrome, Esophageal rupture Respiratory failure Qualifiers: Chronicity: acute Respiratory failure complication: unspecified whether with hypoxia or hypercapnia Qualified Code(s): J96.00 - Acute respiratory failure, unspecified whether with hypoxia or hypercapnia Condition: Critical Discharge Date/Time: 05/09/20 22:15
[2020-05-09] MEDS ORDERED: IOVERSOL 320 100 ML VIAL IVP ONE (19:18)
[2020-05-09 19:19] LABS: BASOPHILS # (AUTO) 0.1 10^3/uL (0.0-0.1); BASOPHILS % (AUTO) 0.8 %; EOSINOPHILS # (AUTO) 0.2 10^3/uL (0.0-0.7); EOSINOPHILS % (AUTO) 1.5 %; HGB - HEMOGLOBIN 13.2 g/dL (14.0-18.0); LYMPHOCYTES # (AUTO) 2.3 10^3/uL (1.5-3.5); LYMPHOCYTES % (AUTO) 22.8 %; MEAN CORPUSCULAR HEMOGLOBIN 27.1 pg (27.0-31.0); MEAN CORPUSCULAR VOLUME 90.3 fL (80.0-94.0); MONOCYTES # (AUTO) 0.7 10^3/uL (0.0-1.0); MONOCYTES % (AUTO) 6.7 %; NEUTROPHILS # (AUTO) 6.8 10^3/uL (1.5-6.6); NEUTROPHILS % (AUTO) 67.7 %; PLT - PLATELET COUNT 357 10^3/uL (130-450); RED BLOOD COUNT 4.87 10^6/uL (4.70-6.10); WHITE BLOOD COUNT 10.1 x10^3/uL (4.8-10.8)
[2020-05-09] MEDS ORDERED: LORazepam 2 MG/ML VIAL IVP STA ×3 (19:21→21:28)
[2020-05-09] MEDS ORDERED: PROPOFOL 200 MG/20 ML VIAL IVP STA (19:26)
[2020-05-09] MEDS ORDERED: ROCURONIUM 50 MG/5 ML VIAL IVP STA (19:26)
[2020-05-09] MEDS ORDERED: PROPOFOL 500 MG/50 ML 500 MG/50 ML VIAL IV STA (19:26)
[2020-05-09 19:33] LABS: ALBUMIN 4.1 g/dL (3.2-5.5); ALBUMIN/GLOBULIN RATIO 1.1 (1.0-2.2); BILIRUBIN,TOTAL 0.4 mg/dL (0.2-1.0); CALCIUM 9.1 mg/dL (8.5-10.3); TOTAL PROTEIN 7.9 g/dL (6.7-8.2)
[2020-05-09] MEDS ORDERED: LORazepam 2 MG/ML VIAL ONE (19:33)
[2020-05-09] MEDS ORDERED: LABETALOL 20 MG/4 ML SYRINGE IVP ONE (19:57)
[2020-05-09] MEDS ORDERED: PIPERACILLIN/TAZOBACTAM 4.5 GM in SODIUM CHLORIDE 0.9% MINIBAG 100 ML IV STA (20:05)
[2020-05-09] MEDS ORDERED: fentaNYL 100 MCG/2 ML VIAL IVP STA ×2 (20:29→21:20)
[2020-05-09 20:35] LABS: INR 1.2 (0.8-1.2)
[2020-05-09] MEDS ORDERED: fentaNYL 100 MCG/2 ML VIAL ONE (20:41)
[2020-05-09 20:53] LABS: ABG PCO2 39 mmHg (34-45); ABG PH 7.37 (7.35-7.45)
[2020-05-09 20:54] LABS: ABG BASE EXCESS -3.4 mmol/L (-2.0-3.0); ABG HCO3 21.6 mmol/L (22.0-26.0); ABG OXYGEN SATURATION 99 % (94-98); ABG TCO2 22.7 MMOL/L (21.0-29.0); ALLEN TEST POSITIVE
[2020-05-09 20:56] LABS: ABG PO2 212 mmHg (80-100)
--- NOTE | 2020-05-09 21:23 | CT Report ---
PROCEDURE: ANGIO ABDOMEN W/WO INDICATIONS: chest/back pain CONTRAST: IV CONTRAST: Optiray 320 ml: 100 PO CONTRAST: *NO PO CONTRAST TECHNIQUE: Noncontrast 5 mm thick sections were acquired from the lower chest the symphysis. After the administr ation of intravenous contrast, 2 mm thick sections acquired from the lower chest to the symphysis dur ing the arterial phase. 3-dimensional maximum-intensity projection (MIP) and/or volume rendering ref ormats were then acquired. For radiation dose reduction, the following was used: automated exposure control, adjustment of mA and/or kV according to patient size. COMPARISON: None FINDINGS: Image quality: Excellent. Aorta: The abdominal aorta is normal caliber though mildly irregular secondary to moderate mixed alexei cified and noncalcified plaque. No evidence of dissection, aneurysm, or rupture. Mesenteric arteries: Celiac trunk, superior and inferior mesenteric arteries appear patent. Renal arteries: There are single renal arteries bilaterally which appear patent. ABDOMEN: Solid organs: Liver and spleen are normal in size. Gallbladder contains gallstones. No wall thicken ing. Pancreas is normal in contours. No adrenal nodules. Kidneys demonstrate no hydronephrosis. Sm all renal cysts. Peritoneum and bowel: Bowel loops demonstrate normal wall thickness and caliber. No free fluid or a ir. Normal appendix. Small amount of posterior mediastinal/periaortic gas does not extend much below the level of the diap hragm. There is no free intraperitoneal gas. Nodes and vessels: No retroperitoneal or mesenteric adenopathy by size criteria. Aorta and inferior vena cava are normal in caliber. Miscellaneous: Tiny fat-containing periumbilical hernia. PELVIS: Genitourinary: Bladder wall thickness is normal. Miscellaneous: No inguinal hernias or adenopathy. Bones: No suspicious bony lesions. No vertebral body compression fractures. IMPRESSION: 1. Intact, normal caliber, moderately atherosclerotic abdominal aorta. 2. Posterior mediastinal gas remains largely above the diaphragm. No free intraperitoneal air. 3. Cholelithiasis. 4. Discussed with Dr. Mae in the emergency room. Reviewed by: Xochitl Bryant MD on 05/09/2020 9:22 PM PST Approved by: Xochitl Bryant MD on 05/09/2020 9:22 PM PST Station ID: [id number]
[2020-05-09] MEDS ORDERED: VECURONIUM 10 MG VIAL IVP STA (21:25)
--- NOTE | 2020-05-09 21:28 | CT Report ---
PROCEDURE: ANGIO CHEST W/WO INDICATIONS: chest back pain, AORTA protocol CONTRAST: IV CONTRAST: Optiray 320 ml: 100 PO CONTRAST: *NO PO CONTRAST TECHNIQUE: Noncontrast 5 mm thick sections were acquired from the lung apices to the upper abdomen. After the ad ministration of intravenous contrast, 2 mm thick sections acquired from the lung apices to the upper abdomen during the arterial phase. 3-dimensional maximum-intensity projection (MIP) and/or volume re ndering reformats were then acquired. For radiation dose reduction, the following was used: automat ed exposure control, adjustment of mA and/or kV according to patient size. COMPARISON: No similar studies FINDINGS: Image quality: Excellent. Aorta: No periaortic hematoma on noncontrast imaging. Postcontrast there is no evidence of aneurysm or dissection. No ulcerative plaque or hematoma. Great vessels: The great vessels demonstrate conventional branching as they arise from the aortic arc h. Visualized great vessels are patent and normal in caliber. CHEST: Lungs and pleura: Small bibasilar posterior consolidation, left greater than right and trace bilatera l effusions. No pneumothorax. There are trace apical emphysematous changes bilaterally. Mediastinum: An endotracheal tube is in place. There is extensive subcutaneous emphysema in the ante rior midline chest wall, lower neck, and pneumomediastinum. No evidence of pneumopericardium. Heavy c oronary artery calcification is present. Trace, dependently layering pericardial effusion. Heart siz e is normal. The central pulmonary arteries appear patent. Small hiatal hernia is present. There is air in the posterior mediastinum surrounding the hiatal rajeev ia. There is mild fat stranding in the herniated fat. No significant associated posterior mediastinal fluid. Chest wall: Extensive subcutaneous emphysema dissecting in the lower neck and anterior chest wall. Th e thyroid gland is normal. No adenopathy. ABDOMEN: Solid organs: Gallbladder contains a few stones. Visible portion of the upper abdomen and bowel loop s is normal. IMPRESSION: 1. No evidence of acute aortic pathology. 2. Extensive mediastinal and upper chest and neck subcutaneous emphysema, etiology is most likely dis fabiola esophageal rupture. Impacted foreign body, neoplasm, incarcerated hiatal hernia, or peptic ulcer disease should be considered. No significant hemorrhage. 3. Trace pericardial effusion. 4. Cholelithiasis. 5. Discussed with Dr. Mae in the emergency room. Reviewed by: Xochitl Bryant MD on 05/09/2020 9:26 PM PST Approved by: Xochitl Bryant MD on 05/09/2020 9:26 PM PST Station ID: [id number]
--- NOTE | 2020-05-09 21:29 | XRAY Report ---
PROCEDURE: Chest for Line Placement INDICATIONS: NGT/ETT TECHNIQUE: One view of the chest was acquired. COMPARISON: None FINDINGS: Surgical changes and devices: Endotracheal tube is in satisfactory position above the nino. Nasogas tric tube is in place with the distal end of the inferior portion of the film. There are overlying mo nitoring wires.. Lungs and pleura: There is subcutaneous emphysema over the lower neck and pneumomediastinum. No visib le pneumothorax. Probable small retrocardiac consolidation. Mediastinum: Mediastinal contours appear normal. Heart size is normal. Bones and chest wall: No suspicious bony lesions. Overlying soft tissues appear unremarkable. IMPRESSION: Adequate position of support tubes. Pneumomediastinum and extensive subcutaneous lower neck emphysema. Retrocardiac consolidation. Reviewed by: Xochitl Bryant MD on 05/09/2020 9:28 PM PST Approved by: Xochitl Bryant MD on 05/09/2020 9:28 PM PST Station ID: [id number]
[2020-05-09] MEDS ORDERED: PROPOFOL 500 MG/50 ML 500 MG/50 ML VIAL ONE (21:38)
[2020-05-09 21:44] VITALS: BP 151/80
[2020-05-09] MEDS ORDERED: VANCOMYCIN INJ 1.5 GM in SODIUM CHLORIDE 0.9% 500 ML IV STA (21:49)
[2020-05-09] MEDS ORDERED: FLUCONAZOLE 200 MG/100 ML 100 ML IV ONE (21:50)
[2020-05-09] MEDS ORDERED: PROPOFOL 500 MG/50 ML 500 MG/50 ML VIAL IV SCH (22:00)
[2020-05-09] MEDS ORDERED: VANCOMYCIN 1 GM VIAL ONE (22:10)
[2020-05-09 22:27] LABS: C. PNEUMONIAE- RESP PCR PANEL NOT DETECTED
== END 2020-05-09 22:15 | disposition short-term general hospital (02) ==
LOC: EDUNIT# → ED 18:46
DX: K22.3 Perforation of esophagus (principal); I10 Essential (primary) hypertension; E11.9 Type 2 diabetes mellitus without complications; Z79.4 Long term (current) use of insulin; Z87.891 Personal history of nicotine dependence; I25.2 Old myocardial infarction; Z20.822 Contact with and (suspected) exposure to COVID-19
CPT/HCPCS: 0202U; 31500; 36600; 43753; 71045; 71275; 74175; 80053; 80320; 82803; 83605; 83690; 83735; 84484; 85025; 85610; 93005; 96365; 96366; 96368; 96375; 96376; 99291; J2060; J3370; Q9967; 36415; 94770

== ENCOUNTER 2020-09-19 14:07 | Outpatient (CLI) | payer MEDICAID | END 2020-09-19 14:08 | disposition critical access hospital (66) | LOC: EMS 14:07 | DX: R19.7 Diarrhea, unspecified (principal); R53.1 Weakness; R10.84 Generalized abdominal pain; R14.0 Abdominal distension (gaseous) | CPT/HCPCS: A0425; A0427; A0999 ==

== ENCOUNTER 2020-09-19 14:31 | Inpatient (IN) | payer MEDICAID ==
--- NOTE | 2020-09-19 15:02 | ED Physician Documentation ---
PD HPI ABD PAIN - Stated complaint Stated Complaint: SICK - Chief complaint Chief Complaint: Abd Pain - History obtained from History obtained from: Patient, Family (sister Tamara Collazo by phone) - Additional information Additional information: I saw him in Apr this year for massive [place]. Was medivaced to [place]. Was in the hospital from Apr 2020, he was in [place] for a prolonged time. Multiple complications with bleeding/sepsis. Eventually discharged to [facility], sister not sure exactly when, maybe June-July timeframe. Discharged 09/11 to home where he lives alone. Per sister was discharged still weak and with diarrhea. Profuse diarrhea for 1 week. Became confused today. Review of Systems Unable to obtain: Confused PD PAST MEDICAL HISTORY - Past Medical History Cardiovascular: Hypertension, High cholesterol Respiratory: Asthma, COPD, Shortness of breath Neuro: None Endocrine/Autoimmune: Type 2 diabetes GI: GERD, Hiatal hernia, Other : Nocturia HEENT: Chronic vision loss, Chronic hearing loss Psych: Depression Musculoskeletal: Osteoarthritis, Gout, Chronic back pain Derm: None - Past Surgical History Past Surgical History: Yes General: Colonoscopy, EGD, Other (reports some abdominal surgery for esophagus, appears to be vikram fundoplication also ventral hernia repair) HEENT: Tonsil/Adenoidectomy - Present Medications Home Medications: Ambulatory Orders Medication Instructions Recorded Confirmed Albuterol Sulfate [Ventolin Hfa] 8 gm IH QID PRN 12/07/13 04/18/19 Ibuprofen 200 mg PO DAILY PRN 12/07/13 04/18/19 Ipratropium Kellogg [Atrovent Hfa] 12.9 gm IH QID PRN 12/07/13 04/18/19 Loratadine [Claritin] 10 mg PO DAILY 12/07/13 04/18/19 Nitroglycerin [Nitrostat] 0.4 mg SL ONCE PRN 12/07/13 04/18/19 Nortriptyline [Pamelor] 50 mg PO HS 12/07/13 04/18/19 lisinopriL [Lisinopril] 30 mg PO DAILY 12/07/13 04/18/19 Atorvastatin [Lipitor] 40 mg PO DAILY 03/09/16 04/18/19 Omeprazole 1 cap PO DAILY 08/11/17 04/18/19 Insulin Aspart Prot/Insuln Asp 8 units SQ TID 04/18/19 04/18/19 [Novolog Mix 70-30 Flexpen] Insulin Glargine [Lantus Solostar] 78 units SQ DAILY 04/18/19 04/18/19 Ipratropium Kellogg [Atrovent Hfa] 1 puffs PO DAILY 04/18/19 04/18/19 amLODIPine [Norvasc] 5 mg PO DAILY 04/18/19 04/18/19 Carvedilol [Coreg] 50 mg PO BID 09/19/20 09/19/20 Gabapentin [Neurontin] 200 mg PO TID 09/19/20 09/19/20 Warfarin Sodium [Coumadin] 3 mg PO DAILY 09/19/20 09/19/20 hydrALAZINE [Apresoline] 50 mg PO TID 09/19/20 09/19/20 - Allergies Allergies/Adverse Reactions: Allergies Allergy/AdvReac Type Severity Reaction Status Date / Time coconut oil AdvReac Intermediate Nausea Verified 09/19/20 14:44 - Social History Does the pt smoke?: No Smoking Status: Former smoker (quit 6 years ago) Does the pt drink ETOH?: Yes Does the pt have substance abuse?: No - POLST Patient has POLST: No PD ED PE NORMAL - Vitals Vital signs reviewed: Yes - General General: Other (A/O x 1. Pale) - HEENT HEENT: PERRL, EOMI - Neck Neck: Supple, no meningeal sign, No bony TTP - Cardiac Cardiac: RRR, No murmur - Respiratory Respiratory: No respiratory distress, Clear bilaterally - Abdomen Abdomen: Other (Distended, wll healed ex-lap. Dimished bowel tones.) - Derm Derm: Normal color, Warm and dry - Extremities Extremities: No edema, No calf tenderness / cord - Neuro Neuro: Other (Can't state the date/time/situation.) Eye Opening: Spontaneous Motor: Obeys Commands Verbal: Confused GCS Score: 14 Results - Vitals Vitals: Vital Signs - 24 hr 09/19/20 09/19/20 09/19/20 14:33 15:02 15:30 Temperature 36.9 C Heart Rate 77 77 77 Respiratory 16 16 16 Rate Blood Pressure 125/62 104/82 H 110/63 O2 Saturation 95 95 96 09/19/20 09/19/20 16:00 18:04 Temperature Heart Rate 77 85 Respiratory 16 18 Rate Blood Pressure 114/68 132/60 H O2 Saturation 96 97 Oxygen O2 Source Room air - Labs Labs: Laboratory Tests 09/19/20 09/19/20 09/19/20 15:04 15:06 15:06 WBC 18.9 H RBC 3.45 L Hgb 9.7 L Hct 30.4 L MCV 88.1 MCH 28.1 MCHC 31.9 L RDW 17.1 H Plt Count 400 MPV 9.9 Neut # (Auto) 16.6 H Lymph # (Auto) 0.5 L [place] # (Auto) 1.2 H Eos # (Auto) 0.4 Baso # (Auto) 0.1 Absolute Nucleated RBC 0.00 Nucleated RBC % 0.0 Sodium 138 Potassium 4.0 Chloride 100 L Carbon Dioxide 25 Anion Gap 13.0 BUN 22 H Creatinine 1.0 Estimated GFR (MDRD) 76 L Glucose 149 H Lactic Acid Calcium 9.1 Total Bilirubin 0.9 AST 16 ALT 16 Alkaline Phosphatase 79 Total Protein 7.1 Albumin 3.4 Globulin 3.7 Albumin/Globulin Ratio 0.9 L Lipase 15 L Stl C. diff Tox B Gene POSITIVE A* 09/19/20 15:06 WBC RBC Hgb Hct MCV MCH MCHC RDW Plt Count MPV Neut # (Auto) Lymph # (Auto) [place] # (Auto) Eos # (Auto) Baso # (Auto) Absolute Nucleated RBC Nucleated RBC % Sodium Potassium Chloride Carbon Dioxide Anion Gap BUN Creatinine Estimated GFR (MDRD) Glucose Lactic Acid 1.7 Calcium Total Bilirubin AST ALT Alkaline Phosphatase Total Protein Albumin Globulin Albumin/Globulin Ratio Lipase Stl C. diff Tox B Gene - Rads (name of study) CT A/P Radiology: EMP read contemporaneously (Complex fluid collection left posterior lung base with overlying rib fractures, likely from prior surgery, small posterior right lower lobe consolidation, stool ball in the rectum, distended bladder, cholelithiasis, hiatal hernia) PD MEDICAL DECISION MAKING - ED course ED course: Discharge summary from [place] dated July 16, 2020 received and reviewed. This was a second discharge summary as it looks like he was admitted to [place] from May 09 to June 19 for pneumomediastinum. Multiple trips to the OR and discharged to [place]. While at [place] developed oliguric renal failure and anasarca. He was started on hemodialysis. This was felt to be due to severe ATN. Was discharged back to [place] still on hemodialysis. He had a transudate of thoracentesis on the left which was loculated. 60-year-old gentleman with recent prolonged hospital stay with prolonged IV antibiotics presents with weakness and diarrhea which is profound. He is positive for C. difficile. I suspect the other findings on T CT are resolving products of his recent hospitalization. Dr. Pereasef agreeable for admission. Departure - Departure Disposition: 66 [facility] DC/[facility] Clinical Impression: Diarrhea, C. difficile colitis Condition: Serious
[2020-09-19] MEDS ORDERED: SODIUM CHLORIDE 0.9% 1,000 ML IV STA (15:06)
[2020-09-19 15:13] LABS: BASOPHILS # (AUTO) 0.1 10^3/uL (0.0-0.1); BASOPHILS % (AUTO) 0.3 %; EOSINOPHILS # (AUTO) 0.4 10^3/uL (0.0-0.7); EOSINOPHILS % (AUTO) 2.3 %; HCT - HEMATOCRIT 30.4 % (42.0-52.0); HGB - HEMOGLOBIN 9.7 g/dL (14.0-18.0); LYMPHOCYTES # (AUTO) 0.5 10^3/uL (1.5-3.5); LYMPHOCYTES % (AUTO) 2.9 %; MEAN CORPUSCULAR HEMOGLOBIN 28.1 pg (27.0-31.0); MEAN CORPUSCULAR HGB CONC 31.9 g/dL (32.0-36.0); MEAN CORPUSCULAR VOLUME 88.1 fL (80.0-94.0); MEAN PLATELET VOLUME 9.9 fL (7.4-11.4); MONOCYTES # (AUTO) 1.2 10^3/uL (0.0-1.0); MONOCYTES % (AUTO) 6.4 %; NEUTROPHILS # (AUTO) 16.6 10^3/uL (1.5-6.6); NEUTROPHILS % (AUTO) 87.7 %; PLT - PLATELET COUNT 400 10^3/uL (130-450); RED BLOOD COUNT 3.45 10^6/uL (4.70-6.10); RED CELL DISTRIBUTION WIDTH 17.1 % (12.0-15.0); WHITE BLOOD COUNT 18.9 x10^3/uL (4.8-10.8)
[2020-09-19 15:24] LABS: ALBUMIN 3.4 g/dL (3.2-5.5); ALBUMIN/GLOBULIN RATIO 0.9 (1.0-2.2); BILIRUBIN,TOTAL 0.9 mg/dL (0.2-1.0); CALCIUM 9.1 mg/dL (8.5-10.3); TOTAL PROTEIN 7.1 g/dL (6.7-8.2)
[2020-09-19] MEDS ORDERED: IOVERSOL 320 100 ML VIAL IVP ONE ×2 (15:24→16:23)
[2020-09-19] MEDS ORDERED: LOPERAMIDE 2 MG CAPSULE PO STA (16:04)
--- NOTE | 2020-09-19 17:01 | CT Report ---
PROCEDURE: Abdomen/Pelvis W INDICATIONS: IV only, abd pain, diarrhea CONTRAST: IV CONTRAST: Optiray 320 ml: 100 PO CONTRAST: *NO PO CONTRAST TECHNIQUE: After the administration of intravenous contrast, 5 mm thick sections acquired from the diaphragms to the symphysis. 5 mm thick coronal and sagittal reformats were acquired. For radiation dose reducti on, the following was used: automated exposure control, adjustment of mA and/or kV according to david ent size. COMPARISON: 05/09/2020 FINDINGS: Image quality: Excellent. ABDOMEN: Lung bases: Partially imaged left posterior rib fractures and heterogeneous subpleural material poste rior and medial in the left thorax. There is a peripherally enhancing 3.1 cm loculated fluid collecti on of metastases a small left pleural effusion. Overlying subcutaneous edema is present posterior lat eral in the chest wall. Small posterior parenchymal consolidation and right pleural effusion is also present. The heart is enlarged. There is a small hiatal hernia. Solid organs: Liver and spleen are normal in size and enhancement. Gallbladder contains several per ipherally calcified gallstones layering near the neck. Biliary system is non dilated. Pancreas enha nces normally. No adrenal nodules. Kidneys demonstrate normal size and enhancement, without hydrone phrosis. Left renal cysts. Peritoneum and bowel: Moderate solid stool ball present in the rectum measuring about 6 cm. Proximal to this, the sigmoid colon demonstrates distention, air-fluid level, mucosal hyperemia. There is liq uid stool filling the rest of the proximal colon. Mild pericolonic inflammation in the left lower kris drant. Small bowel loops are largely decompressed. Nodes and vessels: No retroperitoneal or mesenteric adenopathy by size criteria. Aorta and inferior vena cava are normal in size. Moderate abdominal aortic calcification. Miscellaneous: No ventral hernias. PELVIS: Genitourinary: Bladder wall thickness is normal. The urinary bladder is distended. Miscellaneous: No inguinal hernias or adenopathy. Bones: No suspicious bony lesions. No vertebral body compression fractures. IMPRESSION: 1. Complex fluid collection at the left posterior lung base with overlying rib fractures and chest wa ll fat stranding, subacute injury versus potential surgical changes. Correlate clinically. 2. Small right posterior lower lobe consolidation and trace effusion may be atelectasis or infection. 3. Single solid stool ball in the rectum causing probable partial colonic obstruction, and possible m ild rectosigmoid colitis. 4. Distended urinary bladder. 5. Cholelithiasis. 6. Hiatal hernia. Reviewed by: Xochitl Bryant MD on 09/19/2020 4:59 PM PDT Approved by: Xochitl Bryant MD on 09/19/2020 4:59 PM PDT Station ID: [id number]
[2020-09-19 19:25] LABS: B. PARAPERTUSSIS- RESP PCR PAN NOT DETECTED; B. PERTUSSIS- RESP PCR PANEL NOT DETECTED; C. PNEUMONIAE- RESP PCR PANEL NOT DETECTED; CORONAVIRUS 229E-RESP PCR NOT DETECTED; CORONAVIRUS HKU1-RESP PCR NOT DETECTED; CORONAVIRUS NL63-RESP PCR NOT DETECTED; CORONAVIRUS OC43-RESP PCR NOT DETECTED; HUMAN METAPNEUMOVIRUS NOT DETECTED; INFLUENZA A- RESP PCR PANEL NOT DETECTED; INFLUENZA B - RESP PCR PANEL NOT DETECTED; M. PNEUMONIAE- RESP PCR PANEL NOT DETECTED; PARAINFLUENZA VIRUS 1 NOT DETECTED; PARAINFLUENZA VIRUS 2 NOT DETECTED; PARAINFLUENZA VIRUS 3 NOT DETECTED; PARAINFLUENZA VIRUS 4 NOT DETECTED; RHINOVIRUS/ENTEROVIRUS NOT DETECTED; RSV- RESP PCR PANEL NOT DETECTED; SARS-CoV-2 -RESP PCR PANEL NOT DETECTED
[2020-09-19] MEDS: VANCOMYCIN 125 MG CAPSULE PO SCH (20:34)
[2020-09-19] MEDS: SODIUM CHLORIDE FLUSH 0.9% 10 ML SYRINGE IVP PRN (20:34)
[2020-09-19] MEDS: LACTATED RINGERS 1,000 ML IV SCH (20:37)
--- NOTE | 2020-09-19 21:30 | HISTORY & PHYSICAL EXAMINATION ---
Chief Complaint - Chief Complaint Chief Complaint: weakness and diarrhea History of Present Illness - Admitted From Admitted From:: home via EMS - History Obtained From Records Reviewed: [facility] History obtained from: Dr. Mercedes, patient's sister Tamara Collazo, Exam Limitations: patient memory loss and confusion - History of Present Illness HPI Comment/Other: Past medical history of Caldwell's esophagus. He has had a Johana fundoplication in the past. Presented in April 2020 with substernal chest pressure radiating to the left side and down his right back associated with shortness of breath and feeling like his throat was closing up. There was no history of vomiting. He was ill-appearing and appeared agitated and he received some labetalol due to suspicion of aortic dissection. He could not lay still for the CT. Then he was intubated for airway protection when he pulled out his IVs. He had subcutaneous emphysema. CT angiogram of the chest abdomen and pelvis showed extensive mediastinal, upper chest, neck subcutaneous emphysema likely due to distal esophageal rupture. Impacted foreign body, neoplasm, incarcerated hiatal hernia or peptic ulcer disease were in the differential.. He was transferred to [facility]. He was there from April until July. Interventions included multiple intubations, extubations, in and out of the ICU. ATN resulting in hemodialysis. An esophageal stent. He did have liquid stool while at [facility]. There is no mention of C. difficile being checked.After leaving [facility] he was transferred to [facility] and was just discharged September 11. His chief complaint is that of weakness, diarrhea for the last week, and increasing confusion. At baseline he appears to have a cognitive deficit. That cognitive deficit was not documented on previous exams in our facility before he was transferred to [facility]. In evaluation with the emergency room physician showed an alert oriented x1, pale gentleman. No respiratory distress. A distended abdomen with a well-healed ex lap. Diminished bowel sounds. No tenderness noted on exam. He could not tell me the date, time or situation. Was able to follow commands. Temperature was 36.9. Heart rate 77. Respirations 16. Blood pressure 125/62 and 95% O2 sats. White cell count was 18,000, BMP was normal. Stool C. difficile positive. CT of the abdomen and pelvis with contrast shows him to have a stool ball in his rectum. He was disimpacted in the emergency room. CT also shows mild colitis. In addition to the bowel findings, he has a loculated left lung area. However these were present on previous films in the past. This is not a new finding. I was able to speak to his sister late in the evening. She states that he is always had some developmental problems. She says the entire family has some type of attention deficit disorder. But something definitely happened since April. He has had severe cognitive deficit since the April admission and multiple back and forth between the ICU at [facility] and with dialysis at [facility]. Back to [facility]. She was already his caregiver. He moved here from [place] about 12 years ago and he lived in his own trailer down the street from her. 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 He was able to dress himself, feed himself, was independent with self hygiene, etc. There were times he would get frustrated and be overwhelmed and he just did not want to do it that day. He also is an alcoholic. She also warns me that he can be a complete "ass hole" when he gets frustrated and angry. He stopped drinking the day he had his esophageal perforation. He stopped smoking about 11 or 12 years ago. When he was discharged from [facility], his sister was very alarmed because she did not feel that he was ready to come home. This was a man who was walking and talking normally in April. And now he was so weak he could not walk. When he was discharged from [facility], they had to have people physically lift him into his house because he was unable to walk into his house. [facility] did not discharge him with home health or home health physical therapy. When they finally got him into the house, they basically stopped at a lounge chair in the living room and he has been there since. He has had continuous diarrhea. She is very fanatical about keeping his bottom clean because she is afraid of bedsores. She was constantly with him, changing his diaper, keeping his bottom clean. He tried to get out of the chair a few times and would fall and had to be taken back to the chair either by neighbors or EMS. He was eating okay, able to eat and drink without nausea and vomiting. She says that he was faithful with taking his medications. He did not have fever, chills. She was frantically calling his new primary care provider office at [facility] on [address], trying to get help, but he is establishing himself with a new provider that he hasn't seen and needed coumadin followup, and they finally just told her to take him to the emergency room. That the physician's name is Dr. Joel. She is not sure. She states that in this condition, he cannot come home. It is one thing to take care of a person who is able to get up, move around, feed himself, and at least get to the bathroom by himself, but this is a whole different problem in someone who cannot be mobile. He does not even have a cane or a walker at home. He is now admitted for metabolic encephalopathy due to dehydration which has been induced from C. difficile colitis. History - Past Medical History Cardiovascular: reports: Hypertension, High cholesterol, Angina (on NTG since moving from [place] 12 yrs ago. ), Atrial fibrillation (new diagnosis w [facility] admit?) Respiratory: reports: Asthma, COPD, Shortness of breath Neuro: reports: Migraines Endocrine/Autoimmune: reports: Type 2 diabetes GI: reports: GERD (w chronic Caldwell's esophagus), Hiatal hernia, Other (ventral hernias) : reports: Nocturia HEENT: reports: Chronic vision loss, Chronic hearing loss Psych: reports: Depression, Anxiety Musculoskeletal: reports: Osteoarthritis, Gout, Chronic back pain, Other (Dupuytren's contracture right hand) Derm: reports: None MRSA Hx?: No Other Past Medical History: Chronic anemia. History of alcohol abuse - Past Surgical History General: reports: Colonoscopy (Screening 12/26 with tubular adenoma, surveillance April 2019 with hyperplastic polyp), EGD (12/26, 02/26, 05/03 all with glandular hyperplasia compatible with Caldwell's), Other HEENT: reports: Tonsil/Adenoidectomy, Other (Left ear surgery, nonspecific neck surgery) - Family & Social History Family History Comment/Other: Dad with diabetes, HTN,asthma. age 67. of [place]. Mom with diabetes. age 70s. of lung problems. smoker. 3 Sister with diabetes, younger sister is dying right now from alcohol poisoning, HTN, no cancer. no thryoid. 1 brother, CAD. No children. Living arrangement: At home Living Situation: Alone Social History Notes: Grew up in [place]. Had mild cog def even before disabilities worsened since in [employer]. May have had ADD. Never . Alcoholic. Stopped drinking 04/2020. [place] and she doesn't know how much. Stopped smoking 11 years ago. Moved here 12 years ago. Sister took care of him. Doesn't drive. Was independent with ADLs until 04/2020. Easily overwhelmed. In the past probably did all the available recreational substances but didn't continue it into adulthood. 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 He then was disabled due to pain from neuropathy and gout. Because of his abrasive personality, she is the only sibling that he speaks to. He really does not have any friends. - Substance History Use: Uses substance without health or social issues: NONE Abuse: Recurrent use of substance despite neg consequences: NONE Dependence: Experiences withdrawal or developed tolerances: NONE - POLST Patient has POLST: No POLST Status: DNR (He states he doesn't want CPR and sister confirms this with my phone coversation) Meds/Allgy - Home Medications Home Medications: Ambulatory Orders Medication Instructions Recorded Confirmed Albuterol Sulfate [Ventolin Hfa] 8 gm IH QID PRN 12/07/13 04/18/19 Ibuprofen 200 mg PO DAILY PRN 12/07/13 04/18/19 Ipratropium [place] [Atrovent Hfa] 12.9 gm IH QID PRN 12/07/13 04/18/19 Loratadine [Claritin] 10 mg PO DAILY 12/07/13 04/18/19 Nitroglycerin [Nitrostat] 0.4 mg SL ONCE PRN 12/07/13 04/18/19 Nortriptyline [Pamelor] 50 mg PO HS 12/07/13 04/18/19 lisinopriL [Lisinopril] 30 mg PO DAILY 12/07/13 04/18/19 Atorvastatin [Lipitor] 40 mg PO DAILY 03/09/16 04/18/19 Omeprazole 1 cap PO DAILY 08/11/17 04/18/19 Insulin Aspart Prot/Insuln Asp 8 units SQ TID 04/18/19 04/18/19 [Novolog Mix 70-30 Flexpen] Insulin Glargine [Lantus Solostar] 78 units SQ DAILY 04/18/19 04/18/19 Ipratropium [place] [Atrovent Hfa] 1 puffs PO DAILY 04/18/19 04/18/19 amLODIPine [Norvasc] 5 mg PO DAILY 04/18/19 04/18/19 Carvedilol [Coreg] 50 mg PO BID 09/19/20 09/19/20 Gabapentin [Neurontin] 200 mg PO TID 09/19/20 09/19/20 Warfarin Sodium [Coumadin] 3 mg PO DAILY 09/19/20 09/19/20 hydrALAZINE [Apresoline] 50 mg PO TID 09/19/20 09/19/20 - Allergies Allergies/Adverse Reactions: Allergies Allergy/AdvReac Type Severity Reaction Status Date / Time coconut oil AdvReac Intermediate Nausea Verified 09/19/20 14:44 Review of Systems - Other Findings Other Findings: Unable to be obtained from this patient. He has no short-term or long-term memory. Everything has been a days for him over the last few weeks. He states he hurts all over, his back hurts, but he tells me to leave him alone when I try and get further details about cardiac, pulmonary, , etc. Prior Level of Functionality: See HPI Exam - Vital Signs Reviewed Vital Signs: Yes Vital Signs: Vital Signs x48h Temp Pulse Pulse Resp BP BP Pulse Ox 09/19/20 20:32 36.3 C L 84 21 141/59 H 92 09/19/20 18:04 85 18 132/60 H 97 09/19/20 16:00 77 16 114/68 96 09/19/20 15:30 77 16 110/63 96 09/19/20 15:02 77 16 104/82 H 95 09/19/20 14:33 36.9 C 77 16 125/62 95 - Physical Exam General Appearance: positive: No acute distress, Lethargic (I will ask him a question and he will stare for a moment, and respond with monosyllabic responses. Takes a long time for him to gather his thoughts and try and answer my questions but it is a difficult conversation for him. He knows who he is, can name his sister, but confused about the fact that), Other (5 foot 9 inch wh ite male, 85 kg, handlebar mustache, slow affect.) Eyes Bilateral: positive: PERRL, EOMI ENT: positive: Dry mucous membranes Neck: positive: No JVD. negative: Stiff neck, Carotid bruit Respiratory: positive: No respiratory distress, Other (Rhonchi left midlung field. Right lung clear. Both sides have diminished breath sounds at the bases. Shallow unlabored respiration.). negative: Wheezes, Rales, Rhonchi Cardiovascular: positive: Irregularly irregular, Systolic murmur. negative: Tachycardia, Gallop/S4, Friction rub Peripheral Pulses: positive: 1+ Abdomen: positive: Non-tender, No organomegaly, Nml bowel sounds, No distention Skin: positive: Warm, Dry, Pallor, Other (I am not finding any decubitus ulcers) Extremities: positive: Full ROM, No pedal edema Neurologic/Psychiatric: positive: CN's nml (2-12), Disoriented to place, Disoriented to time, Weakness (Is a nonfocal), Slurred/abnml speech (Delayed verbal response to questions). negative: Motor nml (Slow. Movement is coordinated and there is no focal deficit but he moves very slowly. He also prefers to be in the position with hips flexed, knees flexed. He is able to straighten out his hips and knees but I think there may be some developing contractures.), Facial droop Conclusion/Plan - Problem List (1) C. difficile colitis Conclusion/Plan: Oral vancomycin p.o. Plan: We will also try and get any studies from [facility] or [facility] if they did previous studies on his stool (2) Generalized weakness Conclusion/Plan: So may have developing contractures of hips and knees. Treat active ongoing medical problems, and begin with PT evaluation and treatment Get social work involved because this patient may need placement due to his severe generalized deficits Also asked social work to establish if he is a candidate for any type of services that his sister can access for him. He is a . He is on SSI. (3) Barretts esophagus Conclusion/Plan: Documented on multiple previous EGDs. Last one was 2019. Plan: Proton pump inhibitor Avoid nonsteroidals Primary care provider and surgeon will notify patient when his next EGD will be Qualifiers: Caldwell's esophagus type: without dysplasia Qualified Code(s): K22.70 - Caldwell's esophagus without dysplasia (4) Hypertension Conclusion/Plan: At home he is on hydralazine, carvedilol, lisinopril, amlodipine. Blood pressure here was initially hypotensive at 104/82. Over the course of treatment in the emergency room he was 132/60. By the time he was transferred to [facility] she is 141/59. He is received IV fluids, does not have a toxic megacolon. I will most likely resume his Coreg at first. Then gradually resume other medications as time goes on to make sure we do not contribute to hypotension and in the face of dehydration and C. difficile colitis. Qualifiers: Hypertension type: primary hypertension Qualified Code(s): I10 - Essential (primary) hypertension (5) Type 2 diabetes mellitus with complication, with half-way current use of insulin pump Conclusion/Plan: He is on over 70 units of long-acting insulin as well as 8 units of short acting insulin with meals. At this time I will split up his insulin to give him 40 twice daily of long-acting insulin, 5 units with meals, plus moderate sliding scale. We will also check A1c. (6) Chronic anemia Conclusion/Plan: Present in the past. During his second stay at [facility] from July 10 through July 16 he was transfused 1 unit for hemoglobin in the sixes. From what I can gather in the medical record his anemia is attributed to his chronic Caldwell's esophagus.With his second stay at [facility] he was started on Epogen while he was on hemodialysis. He also received IV iron while at [facility]. Plan: Check iron levels He may be a candidate for infusion depending on his history of oral absorption. (7) Cognitive deficits Conclusion/Plan: In looking through his old records from our institution, there is no evidence of cognitive deficits. While he had a history of tobacco use and alcohol abuse, t here is no mention of Warnicke's encephalopathy, hepatic encephalopathy, etc.I am very interested in seeing what the notes from the [facility] facility document. I would not think that he would be discharged home without any in- home care if he is this disabled. As such I am I suspect that this is an acute event that may need investigation. While he is dehydrated, his labs do not indicate severity. He does not seem to have hypoglycemia. Liver enzymes are normal. Plan: I was able to speak to family tonight. We spoke for over 45 minutes as I was able to tried to piece together this unfortunate man's history. His deficit is not an acute event with this stay. I requested old records from [facility] as well as [facility]. [facility] did send me a dc summary: It was interesting to note that the patient did leave [facility] June 19. Went to [facility]. Was on ceftazidime and ciprofloxacin until June 27. Weaned off PEJ tube feedings. He then developed the oliguric renal failure, anasarca, and started on hemodialysis. Hemodialysis started July 06. With the acute respiratory failure he was placed on BiPAP and high flow nasal cannula. At that point in time they did recommend transfer back to [facility] but there were no beds at [facility] and he was not able to be admitted there until July 10. stayed through through July 16 for possible empyema. He also had worsening oligu rolando acute kidney injury, on hemodialysis and acute respiratory failure. In their notes they state that he is developmentally delayed as a PMH problem. That was present on their admission. In the reevaluation for empyema, chest CT was stable and no empyema was seen on imaging. He was dialyzed. Stabilized. And return to [facility] on July 16. He had a diagnosis of atrial fibrillation during his stay from the very beginning in April and was on Coumadin. From [facility] he was discharged to home 09/11/20. Tox screen. She is adamant he has not had alcohol since returning to home. CT of the head in am as initial assessment since there has been an acute change in him since April. Sister feels this has been unrecognized in spite of her asking for evaluation from [facility] and especially [facility]. Since he has a new hx of afib, he may have had a stroke. Or with hypoxia and multiple intuba tions, anoxic brain injury? Or does he have residual alcoholic induced brain injury? Will make sure he is on folic acid and thiamine. He is on Pamelor. I do not know if this was started for a depression with anxiety, adjustment disorder, management of peripheral neuropathy?. That will be resumed here. I will be adding trazodone at night. I will share with nursing and our hospitalist team what his sister warned us about. He may have some behavioral issues on top of everything. (8) Loculated pleural effusion Conclusion/Plan: He underwent a thoracentesis of the right lung July 11 with his second stay at [facility]. It was transudate of. He did developed a complication of a loculated left effusion with his first admission for the pneumomediastinum and multiple intubations at extubations for the mediastinitis due to the perforated esophagus. The loculated effusion was not amenable to thoracentesis. It was hoped that his fluid volume being managed with hemodialysis on Wednesdays and Fridays would help his pleural effusions. On current CT, he continues to have a loculated left pleural effusion that appears chronic. (9) History of renal dialysis Conclusion/Plan: He developed severe ATN with his first hospitalization at [facility]. Improved enough to be taken off hemodialysis at [facility], but then deteriorated to require further dialysis. For a while he was anuric during his second stay. He was continued on dialysis at the [facility]. He was also continued on torsemide. Since he is not on dialysis now, his creatinine is 1.0, I must assume his ATN has recovered. His current medications do not include diuretics. Plan: Avoid nephrotoxic agents as much as possible Watch fluid status carefully (10) COPD without exacerbation Conclusion/Plan: He is on a Ventolin HFA, and ipratropium HFA. We will continue here as DuoNeb via nebulizer as needed. No acute exacerbation on exam, he is 92 to 97% on room air. (11) Chronic atrial fibrillation Conclusion/Plan: From our records to [facility], he did not have a history of atrial fibrillation. Once he left [facility] that was an additional diagnosis. He is on Coreg, and Coumadin. Those will be resumed while he is here. His admit list shows him to be on Coreg 50 mg twice daily. I will start him on 25 mg twice daily until pharmacy can verify dose. He did not have an INR checked in the emergency room. I will check daily INRs while he is here. Will also see if we can get an ECHO report from [facility]. (12) Chronic pain disorder Conclusion/Plan: Due to a long history of osteoarthritis, acute gouty arthritis in the past, dense peripheral neuropathy from uncontrolled diabetes. According to his sister he is disabled due to the pain disorder. I will resume his gabapentin, Pamelor. Try and avoid opiates on a regular basis. - Lab Results Lab results reviewed: Yes Rodney Bones: 09/19/20 15:06 09/19/20 15:06 - Diagnostic Imaging Results Diagnostic Imaging Results: positive: Final report reviewed - EKG Results EKG Interpreted Independently: No Core Measures - Anticipated LOS I expect patient to be DC'd or transferred within 96 hours.: Yes - DVT/VTE - Prophylaxis VTE/DVT Device ordered at admit?: Yes
[2020-09-19] MEDS: carvediloL 12.5 MG TABLET PO SCH (22:41)
--- NOTE | 2020-09-20 00:39 | ADVANCE CARE PLANNING NOTE ---
Advance Care Planning - Planning Encounter Date: 09/19/20 Time: 22:00 Purpose: establish code status Parties in Attendance: sister on phone, patient in his room, hospitalist Decisional Capacity of the Patient: alert to person, but not place and time. sister is his caregiver and defacto DPOA and contact. He confirms that - Encounter Subjective/Patient's Story: He was born and raised in [place] and went into the [employer]. His sister states that all of their family has some type of disability. She describes it as difficulty incorporating new knowledge, and some type of attention deficit disorder. When they were growing up nobody had a label for it so they were all just labeled as "bad kids". 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 But he gradually became more more disabled because of a dense pain syndrome. It was a combination of gout, arthritis, and severe peripheral neuropathy. He was no longer able to work and he was put on SSI. He is an alcoholic. She really cannot quantify how much she drank because he bought it for himself at the [facility] [employer] on the [facility]. But ever since she got sick in April of this year, he has not had anything to drink. He stopped smoking the year before he came to [facility]. He came [place] because he really could not take care of himself anymore due to his cognitive deficits. He is easily frustrated, cannot incorporate new knowledge, and can get easily overwhelmed if too much information is thrown his way. 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 She helped a lot with organizing his life, buying his groceries, helping him pays bills. She drove him to doctor's appointments. She says that because of his frustration, and the drinking did not help, he can be "an ass hole" sometimes. But if you give him time and space he will calm down and for the most part be reasonable. She did not always accompany him to doctor visits. She will drop them off. Sometimes she is not very clear of what the message was to him from his doctors. But overall she knew that he had emphysema, high blood pressure, diabetes, and the hiatal hernia. He then became very ill in April of this year when he had the ruptured esophagus. She describes a chaotic time between April and September of multiple ICU admissions. Multiple conversations were doctors told her he was possibly going to . He ended up going in and out of [place] and was on dialysis. Even though he gradually recovered and was no longer critically ill, he has not bounced back. The person she brought home from [place] is a very weak person who cannot stand and walk on his own. He used to be able to. She was very desperate to try to get him help. But Bill refused to order home health or physical therapy. She was never clear why. She readily admits that she herself does not have a lot of education and she gets confused about what doctors and "professionals" tell her. After his discharge September when she tried really hard to get him in to see his primary care provider but they just did not have any openings. She thinks it is Dr. Edwards. After multiple phone calls to the PCP office, they just recommended she bring him to the hospital. He was sitting in his chair. Never getting up. Had to be brought in by 4 people when transferred from [place]. Never left his chair except to try and get up but he would fall. He had nonstop diarrhea, and was getting weaker and weaker. Sometimes more confused. After this experience, he and she have spoken a little bit about advance care planning. They have not talked about the long run. She has been told that he probably does not have a lot longer to live due to all of his multiple comorbidities. She was also told that if he were ever to get critically ill again, he would probably not survive. He is already very unhappy at his limitations. He would never be able to tolerate a long-term permanent placement in a prison facility. Both she and he tell me that he does not want CPR. Objective/Medical Story: This is a patient who has a past medical history of alcoholism, diabetes on insulin, dense peripheral neuropathy, chronic anemia, Caldwell's esophagus, for yogesh smoker who has COPD/asthma, some form of cognitive deficit even before hospitalization that is now severely worsened, and presented in April 2020 with a ruptured esophagus and Boerhaave syndrome. He was transferred to [place] we had a complicated course of respiratory failure, multiple chest tubes, in and out of ICU with in and out of intubation, hemodialysis. He had a PEG tube for feeding. He was transferred to [facility] for rehab and continued care. Return to back to [place] due to acute respiratory failure, and possible empyema. Stabilized. Had a thoracentesis, and continued documentation of a loculated left effusion. Sent back to [place] we completed rehab, was weaned off tube feeds, weaned off dialysis and discharge September 11. At home he has failed. Has had continuous diarrhea, and is not nowhere near his baseline of being able to ambulate and at least do self care with ADLs. In our emergency room he is dehydrated, confused, severe cognitive deficit, has C. difficile colitis. COPD is stable. Renal function is stable. Continues to have chronic anemia. Goals of Care: 1. He would like to return to his trailer where he can at least stand and walk independently to bathe himself, feed himself, go to the bathroom. 2. He and his sister would like to figure out why his memory loss is so much more severe. Plan: Do a work-up with regards to memory loss. Be evaluated by physical and Occupational Therapy. Social work consult to establish opportunities that may be able to help him and his sister. Their overall desire is for him to go back to his trailer.At this time she cannot take him back to where he is. He needs to at least be able to sit to stand and stand for a few moments to step for her to take care of him. Code Status: Do Not Attempt Resuscitation Time spent on advance care plannin
[2020-09-20] MEDS: SODIUM CHLORIDE FLUSH 0.9% 10 ML SYRINGE IVP SCH ×3 (01:03→17:00)
[2020-09-20] MEDS: oxyCODONE 5 MG TABLET PO PRN ×3 (01:13→21:32)
[2020-09-20] MEDS: ZINC OXIDE 20% OINT 30 GM TUBE TOP PRN ×2 (04:02→21:33)
[2020-09-20] MEDS: LACTATED RINGERS 1,000 ML IV SCH ×2 (06:12→17:01)
[2020-09-20] MEDS: GABAPENTIN 100 MG CAPSULE PO SCH ×3 (06:12→21:25)
[2020-09-20] MEDS ORDERED: PANTOPRAZOLE 40 MG TABLET PO SCH (07:00)
[2020-09-20 07:36] LABS: MUDS CUTOFF CONCENTRATIONS CUTOFF CONC BELOW:
[2020-09-20 07:41] LABS: BASOPHILS % (AUTO) 0.2 %; EOSINOPHILS % (AUTO) 0.2 %; HCT - HEMATOCRIT 24.5 % (42.0-52.0); HGB - HEMOGLOBIN 7.7 g/dL (14.0-18.0); LYMPHOCYTES # (AUTO) 1.1 10^3/uL (1.5-3.5); LYMPHOCYTES % (AUTO) 8.8 %; MEAN CORPUSCULAR HEMOGLOBIN 27.7 pg (27.0-31.0); MEAN CORPUSCULAR HGB CONC 31.4 g/dL (32.0-36.0); MEAN CORPUSCULAR VOLUME 88.1 fL (80.0-94.0); MEAN PLATELET VOLUME 10.2 fL (7.4-11.4); MONOCYTES # (AUTO) 1.1 10^3/uL (0.0-1.0); MONOCYTES % (AUTO) 9.3 %; PLT - PLATELET COUNT 328 10^3/uL (130-450); RED BLOOD COUNT 2.78 10^6/uL (4.70-6.10); RED CELL DISTRIBUTION WIDTH 17.5 % (12.0-15.0); WHITE BLOOD COUNT 12.3 x10^3/uL (4.8-10.8)
[2020-09-20 07:43] LABS: BILIRUBIN,URINE NEGATIVE (NEGATIVE); GLUCOSE, URINE (UA) NEGATIVE (NEGATIVE); KETONES,URINE (UA) NEGATIVE (NEGATIVE); LEUKOCYTE ESTERASE, URINE NEGATIVE (NEGATIVE); NITRITE,URINE NEGATIVE (NEGATIVE); OCCULT BLOOD,URINE NEGATIVE (NEGATIVE); PROTEIN,URINE TRACE mg/dL (NEGATIVE); UROBILINOGEN,URINE 0.2 (NORMAL) E.U./dL (NORMAL)
[2020-09-20 07:45] LABS: CLARITY,URINE CLEAR (CLEAR)
[2020-09-20 07:47] LABS: INR 1.7 (0.8-1.2); PT - PROTHROMBIN TIME 17.9 secs (9.9-12.6)
[2020-09-20 08:00] LABS: AMPHETAMINE SCREEN,URINE NEGATIVE (NEGATIVE); BARBITURATE SCREEN,UR NEGATIVE (NEGATIVE); BENZODIAZEPINES SCREEN, URINE NEGATIVE (NEGATIVE); COCAINE SCREEN URINE NEGATIVE (NEGATIVE); METHADONE SCREEN, URINE NEGATIVE (NEGATIVE); METHAMPHETAMINES SCREEN, URINE NEGATIVE (NEGATIVE); OPIATE SCREEN, URINE NEGATIVE (NEGATIVE); OXYCODONE SCREEN, URINE POSITIVE (NEGATIVE); PROPOXYPHENE SCREEN, URINE NEGATIVE (NEGATIVE); THC CANNABINOID SCREEN, URINE POSITIVE (NEGATIVE); TRICYCLIC ANTIDEPRESSANT,URINE NEGATIVE (NEGATIVE)
[2020-09-20] MEDS ORDERED: FERROUS GLUCONATE 324 MG TABLET PO SCH (08:00)
[2020-09-20] MEDS ORDERED: INSULIN GLARGINE 300 UNIT/3 ML PEN SUBQ SCH ×2 (08:00→21:00)
[2020-09-20 08:03] LABS: CALCIUM 8.5 mg/dL (8.5-10.3); MAGNESIUM 2.2 mg/dL (1.7-2.8); POTASSIUM 3.4 mmol/L (3.5-5.0)
[2020-09-20] MEDS: INSULIN ASPART 300 UNIT/3 ML PEN SUBQ SCH ×7 (08:14→21:16)
[2020-09-20] MEDS ORDERED: ENOXAPARIN 40 MG/0.4 ML SYRINGE SUBQ SCH (09:00)
[2020-09-20] MEDS: VANCOMYCIN 125 MG CAPSULE PO SCH ×4 (09:05→21:26)
[2020-09-20] MEDS: carvediloL 12.5 MG TABLET PO SCH ×2 (09:05→21:28)
[2020-09-20] MEDS: THIAMINE 100 MG TABLET PO SCH (09:06)
[2020-09-20] MEDS: FOLIC ACID 1 MG TABLET PO SCH (09:07)
--- NOTE | 2020-09-20 09:18 | CT Report ---
PROCEDURE: HEAD WO INDICATIONS: memory loss TECHNIQUE: Noncontrast 4.5 mm thick angled axial sections acquired from the foramen magnum to the vertex. For r adiation dose reduction, the following was used: automated exposure control, adjustment of mA and/or kV according to patient size. COMPARISON: None. FINDINGS: Image quality: There is streak artifact seen through the skull base. CSF spaces: Basal cisterns are patent. No extra-axial fluid collections. Ventricles are normal in size and shape. Brain: No midline shift. No intracranial masses or hemorrhage. Pascal-white matter interface is norm al. Skull and face: Calvarium and visualized facial bones are intact, without suspicious lesions. Sinuses: Moderate mucosal thickening is seen within the left maxillary sinus and the sphenoid sinuse s, with milder mucosal thickening elsewhere within the paranasal sinuses. Prior left mastoidectomy. P rominent abnormal fluid seen within the right mastoid air cells. IMPRESSION: No significant intracranial abnormality is seen to explain the patient's presenting symp toms. Paranasal sinus disease can be seen. Prior left mastoidectomy change with prominent right-sided mastoid air cell fluid present. Reviewed by: Eugenio Rodríguez MD on 09/20/2020 8:16 AM MARLENE Approved by: Eugenio Rodríguez MD on 09/20/2020 8:16 AM MARLENE Station ID: [id number]
[2020-09-20] MEDS ORDERED: DEXTROSE 50% ABBOJECT 25 GM/50 ML SYRINGE IVP ONE (12:22)
--- NOTE | 2020-09-20 13:31 | PROVIDER PROGRESS NOTE ---
Subjective - Prog Note Date Prog Note Date: 09/20/20 - Subjective Subjective: He continues to complain of abdominal pain. He still has significant diarrhea. He has not kept track of number of bowel movements but he does not feel that it has improved compared to yesterday. He had another bowel movement while I was in the room. Current Medications - Current Medications Current Medications: Active Medications Acetaminophen (Acetaminophen 325 Mg Tablet) 650 mg PO Q4HR PRN PRN Reason: Pain 1 to 4 Albuterol/Ipratropium (Ipratropium/Albuterol 3 Ml Neb) 3 ml INH Q4HR PRN PRN Reason: Wheezing Carvedilol (Carvedilol 12.5 Mg Tablet) 25 mg PO BID [facility] Last Admin: 09/20/20 09:05 Dose: 25 mg Documented by: Ferrous Sulfate (Ferrous Sulfate 325 Mg Tablet) 325 mg PO BIDWM [facility] Folic Acid (Folic Acid 1 Mg Tablet) 1 mg PO DAILY [facility] Last Admin: 09/20/20 09:07 Dose: 1 mg Documented by: Gabapentin (Gabapentin 100 Mg Capsule) 200 mg PO TID [facility] Last Admin: 09/20/20 06:12 Dose: 200 mg Documented by: Lactated Ringer's (Lr) 1,000 mls @ 100 mls/hr IV .Q10H [facility] Last Admin: 09/20/20 06:12 Dose: 100 mls/hr Documented by: Insulin Aspart (Insulin Aspart 300 Unit/3 Ml Pen) 5 unit SUBQ TIDWM [facility]; Protocol Last Admin: 09/20/20 12:01 Dose: Not Given Documented by: Insulin Aspart (Insulin Aspart 300 Unit/3 Ml Pen) 1 - 5 unit SUBQ 0800,1200,1700,2100 [facility]; Protocol Last Admin: 09/20/20 12:02 Dose: Not Given Documented by: Insulin Glargine (Insulin Glargine 300 Unit/3 Ml Pen) 40 unit SUBQ QDBREAKFAST [facility] Last Admin: 09/20/20 08:15 Dose: 40 unit Documented by: Insulin Glargine (Insulin Glargine 300 Unit/3 Ml Pen) 40 unit SUBQ QPM [facility] Morphine Sulfate (Morphine 2 Mg/Ml Carpuject) 2 mg IVP Q2HR PRN PRN Reason: Pain 8 to 10 Multi-Ingredient Ointment (Zinc Oxide 20% Oint 30 Gm Tube) 1 applic TOP PRN PRN PRN Reason: Skin Care Last Admin: 09/20/20 04:02 Dose: 1 applic Documented by: Nortriptyline HCl (Nortriptyline 25 Mg Capsule) 50 mg PO QPM [facility] Ondansetron HCl (Ondansetron 4 Mg/2 Ml Vial) 4 mg IVP Q6HR PRN PRN Reason: Nausea / Vomiting Oxycodone HCl (Oxycodone 5 Mg Tablet) 5 mg PO Q4HR PRN PRN Reason: Pain 5 to 7 Last Admin: 09/20/20 09:42 Dose: 5 mg Documented by: Pantoprazole Sodium (Pantoprazole 40 Mg Tablet) 40 mg PO QDAC [facility] Last Admin: 09/20/20 06:12 Dose: 40 mg Documented by: Sodium Chloride (Sodium Chloride Flush 0.9% 10 Ml Syringe) 10 ml IVP PRN PRN PRN Reason: NEEDED PER PROVIDER ORDERS Last Admin: 09/19/20 20:34 Dose: 10 ml Documented by: Sodium Chloride (Sodium Chloride Flush 0.9% 10 Ml Syringe) 10 ml IVP 0100,0900,1700 [facility] Last Admin: 09/20/20 09:06 Dose: 10 ml Documented by: Thiamine HCl (Thiamine 100 Mg Tablet) 100 mg PO DAILY [facility] Last Admin: 09/20/20 09:06 Dose: 100 mg Documented by: Trazodone HCl (Trazodone 50 Mg Tablet) 50 mg PO QPM [facility] Vancomycin HCl (Vancomycin 125 Mg Capsule) 125 mg PO QID [facility] Last Admin: 09/20/20 12:28 Dose: 125 mg Documented by: Warfarin Sodium (Warfarin 1 Mg Tablet) 3 mg PO QDWARFARIN [facility] Insulin Aspart Prot/Insuln Asp [Novolog Mix 70-30 Flexpen] 8 units SQ TID 04/18/19 Insulin Glargine [Lantus Solostar] 78 units SQ DAILY 04/18/19 Carvedilol [Coreg] 50 mg PO BID 09/19/20 Gabapentin [Neurontin] 200 mg PO TID 09/19/20 Warfarin Sodium [Coumadin] 3 mg PO DAILY 09/19/20 hydrALAZINE [Apresoline] 50 mg PO TID 09/19/20 Budesonide/Formoterol Fumarate [Symbicort 160-4.5 Mcg Inhaler] 2 puffs INH BID 09/20/20 Docusate Sodium 100Mg Capsule [Colace 100Mg Capsule] 100 mg PO BID 09/20/20 Ipratropium/Albuterol [Duoneb] 3 ml INH Q6H 09/20/20 Pantoprazole [Protonix] 40 mg PO BID 09/20/20 Sevelamer [Renagel] 800 mg PO TID 09/20/20 polyethylene glycoL 3350 [Polyethylene Glycol 3350] 17 gm PO DAILY 09/20/20 Objective - Vital Signs/Intake & Output Reviewed Vital Signs: Yes Vital Signs: Vital Signs x48h Temp Pulse Pulse Resp BP Pulse Ox 09/20/20 07:57 36.8 C 70 18 102/53 L 90 L 09/20/20 06:12 36.4 C L 71 18 98 Intake & Output: Intake & Output 09/17/20 09/18/20 09/19/20 09/20/20 23:59 23:59 23:59 23:59 Intake Total 1100 1258.333 Output Total 375 Balance 1100 883.333 - Objective General Appearance: positive: No acute distress, Alert Eyes Bilateral: positive: Normal inspection, Other (Conjuctival pallor.) ENT: positive: ENT inspection nml Neck: positive: Nml inspection Respiratory: positive: No respiratory distress, Other (Diminished bilaterally.). negative: Wheezes, Rales Cardiovascular: positive: Regular rate & rhythm. negative: Tachycardia, Systolic murmur Abdomen: positive: Tenderness (Mild diffuse tenderness.), Other (Prior surgical incision noted.) Skin: positive: Warm, Dry Extremities: positive: No pedal edema Neurologic/Psychiatric: negative: Disoriented to person, Disoriented to place - Lab Results Fish Bones: 09/20/20 14:35 09/20/20 07:11 Other Labs: Lab Results x24hrs 09/20/20 09/20/20 09/20/20 Range/Units 07:11 07:11 07:11 WBC (4.8-10.8) x10^3/uL RBC (4.70-6.10) 10^6/uL Hgb (14.0-18.0) g/dL Hct (42.0-52.0) % MCV (80.0-94.0) fL MCH (27.0-31.0) pg MCHC (32.0-36.0) g/dL RDW (12.0-15.0) % Plt Count (130-450) 10^3/uL MPV (7.4-11.4) fL Neut # (Auto) (1.5-6.6) 10^3/uL Lymph # (Auto) (1.5-3.5) 10^3/uL Cherry # (Auto) (0.0-1.0) 10^3/uL Eos # (Auto) (0.0-0.7) 10^3/uL Baso # (Auto) (0.0-0.1) 10^3/uL Absolute Nucleated RBC x10^3/uL Nucleated RBC % /100WBC PT 17.9 H (9.9-12.6) secs INR 1.7 H (0.8-1.2) Sodium 139 (135-145) mmol/L Potassium 3.4 L (3.5-5.0) mmol/L Chloride 103 (101-111) mmol/L Carbon Dioxide 25 (21-32) mmol/L Anion Gap 11.0 (6-13) BUN 24 H (6-20) mg/dL Creatinine 1.0 (0.6-1.2) mg/dL Estimated GFR (MDRD) 76 L (>89) Glucose 116 H (70-100) mg/dL Lactic Acid (0.5-2.2) mmol/L Calcium 8.5 (8.5-10.3) mg/dL Magnesium 2.2 (1.7-2.8) mg/dL Iron 13 L (45-182) ug/dL TIBC 164 L (250-450) ug/dL % Saturation 8 L (20-50) % Transferrin 117 L (180-329) mg/dL Ferritin 344.2 H (23.9-336.2) ng/mL Total Bilirubin (0.2-1.0) mg/dL AST (10-42) IU/L ALT (10-60) IU/L Alkaline Phosphatase (42-121) IU/L Total Protein (6.7-8.2) g/dL Albumin (3.2-5.5) g/dL Globulin (2.1-4.2) g/dL Albumin/Globulin Ratio (1.0-2.2) Lipase (22-51) U/L Urine Color Urine Clarity (CLEAR) Urine pH (5.0-7.5) PH Ur Specific Merna (1.002-1.030) Urine Protein (NEGATIVE) mg/dL Urine Glucose (UA) (NEGATIVE) mg/dL Urine Ketones (NEGATIVE) mg/dL Urine Occult Blood (NEGATIVE) Urine Nitrite (NEGATIVE) Urine Bilirubin (NEGATIVE) Urine Urobilinogen (NORMAL) E.U./dL Ur Leukocyte Esterase (NEGATIVE) Ur Microscopic Review Urine Culture Comments Nasal Adenovirus (PCR) Nasal B. parapertussis DNA (PCR) Nasal Coronavir 229E PCR Nasal Coronavir HKU1 PCR Nasal Coronavir NL63 PCR Nasal Coronavir OC43 PCR Nasal Enterovir/Rhinovir PCR Nasal Influenza B PCR Nasal Influenza A PCR Nasal Parainfluen 1 PCR Nasal Parainfluen 2 PCR Nasal Parainfluen 3 PCR Nasal Parainfluen 4 PCR Nasal RSV (PCR) Nasal B.pertussis DNA PCR Nasal C.pneumoniae (PCR) Nacho Human Metapneumo PCR Nasal M.pneumoniae (PCR) Nasal SARS-CoV-2 (PCR) Stl C. diff Tox B Gene (NEGATIVE) Urine Opiates Screen (NEGATIVE) Ur Oxycodone Screen (NEGATIVE) Urine Methadone Screen (NEGATIVE) Ur Propoxyphene Screen (NEGATIVE) Ur Barbiturates Screen (NEGATIVE) Ur Tricyclics Screen (NEGATIVE) Ur Phencyclidine Scrn (NEGATIVE) Ur Amphetamine Screen (NEGATIVE) U Methamphetamines Scrn (NEGATIVE) U Benzodiazepines Scrn (NEGATIVE) Urine Cocaine Screen (NEGATIVE) U Cannabinoids Screen (NEGATIVE) 09/20/20 09/20/20 09/19/20 Range/Units 07:11 06:50 18:20 WBC 12.3 H (4.8-10.8) x10^3/uL RBC 2.78 L (4.70-6.10) 10^6/uL Hgb 7.7 L (14.0-18.0) g/dL Hct 24.5 L (42.0-52.0) % MCV 88.1 (80.0-94.0) fL MCH 27.7 (27.0-31.0) pg MCHC 31.4 L (32.0-36.0) g/dL RDW 17.5 H (12.0-15.0) % Plt Count 328 (130-450) 10^3/uL MPV 10.2 (7.4-11.4) fL Neut # (Auto) 10.0 H (1.5-6.6) 10^3/uL Lymph # (Auto) 1.1 L (1.5-3.5) 10^3/uL Cherry # (Auto) 1.1 H (0.0-1.0) 10^3/uL Eos # (Auto) 0.0 (0.0-0.7) 10^3/uL Baso # (Auto) 0.0 (0.0-0.1) 10^3/uL Absolute Nucleated RBC 0.00 x10^3/uL Nucleated RBC % 0.0 /100WBC PT (9.9-12.6) secs INR (0.8-1.2) Sodium (135-145) mmol/L Potassium (3.5-5.0) mmol/L Chloride (101-111) mmol/L Carbon Dioxide (21-32) mmol/L Anion Gap (6-13) BUN (6-20) mg/dL Creatinine (0.6-1.2) mg/dL Estimated GFR (MDRD) (>89) Glucose (70-100) mg/dL Lactic Acid (0.5-2.2) mmol/L Calcium (8.5-10.3) mg/dL Magnesium (1.7-2.8) mg/dL Iron (45-182) ug/dL TIBC (250-450) ug/dL % Saturation (20-50) % Transferrin (180-329) mg/dL Ferritin (23.9-336.2) ng/mL Total Bilirubin (0.2-1.0) mg/dL AST (10-42) IU/L ALT (10-60) IU/L Alkaline Phosphatase (42-121) IU/L Total Protein (6.7-8.2) g/dL Albumin (3.2-5.5) g/dL Globulin (2.1-4.2) g/dL Albumin/Globulin Ratio (1.0-2.2) Lipase (22-51) U/L Urine Color DARK YELLOW Urine Clarity CLEAR (CLEAR) Urine pH 5.0 (5.0-7.5) PH Ur Specific Merna 1.020 (1.002-1.030) Urine Protein TRACE (NEGATIVE) mg/dL Urine Glucose (UA) NEGATIVE (NEGATIVE) mg/dL Urine Ketones NEGATIVE (NEGATIVE) mg/dL Urine Occult Blood NEGATIVE (NEGATIVE) Urine Nitrite NEGATIVE (NEGATIVE) Urine Bilirubin NEGATIVE (NEGATIVE) Urine Urobilinogen 0.2 (NORMAL) (NORMAL) E.U./dL Ur Leukocyte Esterase NEGATIVE (NEGATIVE) Ur Microscopic Review NOT INDICATED Urine Culture Comments NOT INDICATED Nasal Adenovirus (PCR) NOT DETECTED Nasal B. parapertussis DNA (PCR) NOT DETECTED Nasal Coronavir 229E PCR NOT DETECTED Nasal Coronavir HKU1 PCR NOT DETECTED Nasal Coronavir NL63 PCR NOT DETECTED Nasal Coronavir OC43 PCR NOT DETECTED Nasal Enterovir/Rhinovir PCR NOT DETECTED Nasal Influenza B PCR NOT DETECTED Nasal Influenza A PCR NOT DETECTED Nasal Parainfluen 1 PCR NOT DETECTED Nasal Parainfluen 2 PCR NOT DETECTED Nasal Parainfluen 3 PCR NOT DETECTED Nasal Parainfluen 4 PCR NOT DETECTED Nasal RSV (PCR) NOT DETECTED Nasal B.pertussis DNA PCR NOT DETECTED Nasal C.pneumoniae (PCR) NOT DETECTED Nacho Human Metapneumo PCR NOT DETECTED Nasal M.pneumoniae (PCR) NOT DETECTED Nasal SARS-CoV-2 (PCR) NOT DETECTED Stl C. diff Tox B Gene (NEGATIVE) Urine Opiates Screen NEGATIVE (NEGATIVE) Ur Oxycodone Screen POSITIVE H (NEGATIVE) Urine Methadone Screen NEGATIVE (NEGATIVE) Ur Propoxyphene Screen NEGATIVE (NEGATIVE) Ur Barbiturates Screen NEGATIVE (NEGATIVE) Ur Tricyclics Screen NEGATIVE (NEGATIVE) Ur Phencyclidine Scrn NEGATIVE (NEGATIVE) Ur Amphetamine Screen NEGATIVE (NEGATIVE) U Methamphetamines Scrn NEGATIVE (NEGATIVE) U Benzodiazepines Scrn NEGATIVE (NEGATIVE) Urine Cocaine Screen NEGATIVE (NEGATIVE) U Cannabinoids Screen POSITIVE H (NEGATIVE) 09/19/20 09/19/20 09/19/20 Range/Units 15:06 15:06 15:06 WBC 18.9 H (4.8-10.8) x10^3/uL RBC 3.45 L (4.70-6.10) 10^6/uL Hgb 9.7 L (14.0-18.0) g/dL Hct 30.4 L (42.0-52.0) % MCV 88.1 (80.0-94.0) fL MCH 28.1 (27.0-31.0) pg MCHC 31.9 L (32.0-36.0) g/dL RDW 17.1 H (12.0-15.0) % Plt Count 400 (130-450) 10^3/uL MPV 9.9 (7.4-11.4) fL Neut # (Auto) 16.6 H (1.5-6.6) 10^3/uL Lymph # (Auto) 0.5 L (1.5-3.5) 10^3/uL Cherry # (Auto) 1.2 H (0.0-1.0) 10^3/uL Eos # (Auto) 0.4 (0.0-0.7) 10^3/uL Baso # (Auto) 0.1 (0.0-0.1) 10^3/uL Absolute Nucleated RBC 0.00 x10^3/uL Nucleated RBC % 0.0 /100WBC PT (9.9-12.6) secs INR (0.8-1.2) Sodium 138 (135-145) mmol/L Potassium 4.0 (3.5-5.0) mmol/L Chloride 100 L (101-111) mmol/L Carbon Dioxide 25 (21-32) mmol/L Anion Gap 13.0 (6-13) BUN 22 H (6-20) mg/dL Creatinine 1.0 (0.6-1.2) mg/dL Estimated GFR (MDRD) 76 L (>89) Glucose 149 H (70-100) mg/dL Lactic Acid 1.7 (0.5-2.2) mmol/L Calcium 9.1 (8.5-10.3) mg/dL Magnesium (1.7-2.8) mg/dL Iron (45-182) ug/dL TIBC (250-450) ug/dL % Saturation (20-50) % Transferrin (180-329) mg/dL Ferritin (23.9-336.2) ng/mL Total Bilirubin 0.9 (0.2-1.0) mg/dL AST 16 (10-42) IU/L ALT 16 (10-60) IU/L Alkaline Phosphatase 79 (42-121) IU/L Total Protein 7.1 (6.7-8.2) g/dL Albumin 3.4 (3.2-5.5) g/dL Globulin 3.7 (2.1-4.2) g/dL Albumin/Globulin Ratio 0.9 L (1.0-2.2) Lipase 15 L (22-51) U/L Urine Color Urine Clarity (CLEAR) Urine pH (5.0-7.5) PH Ur Specific Merna (1.002-1.030) Urine Protein (NEGATIVE) mg/dL Urine Glucose (UA) (NEGATIVE) mg/dL Urine Ketones (NEGATIVE) mg/dL Urine Occult Blood (NEGATIVE) Urine Nitrite (NEGATIVE) Urine Bilirubin (NEGATIVE) Urine Urobilinogen (NORMAL) E.U./dL Ur Leukocyte Esterase (NEGATIVE) Ur Microscopic Review Urine Culture Comments Nasal Adenovirus (PCR) Nasal B. parapertussis DNA (PCR) Nasal Coronavir 229E PCR Nasal Coronavir HKU1 PCR Nasal Coronavir NL63 PCR Nasal Coronavir OC43 PCR Nasal Enterovir/Rhinovir PCR Nasal Influenza B PCR Nasal Influenza A PCR Nasal Parainfluen 1 PCR Nasal Parainfluen 2 PCR Nasal Parainfluen 3 PCR Nasal Parainfluen 4 PCR Nasal RSV (PCR) Nasal B.pertussis DNA PCR Nasal C.pneumoniae (PCR) Nacho Human Metapneumo PCR Nasal M.pneumoniae (PCR) Nasal SARS-CoV-2 (PCR) Stl C. diff Tox B Gene (NEGATIVE) Urine Opiates Screen (NEGATIVE) Ur Oxycodone Screen (NEGATIVE) Urine Methadone Screen (NEGATIVE) Ur Propoxyphene Screen (NEGATIVE) Ur Barbiturates Screen (NEGATIVE) Ur Tricyclics Screen (NEGATIVE) Ur Phencyclidine Scrn (NEGATIVE) Ur Amphetamine Screen (NEGATIVE) U Methamphetamines Scrn (NEGATIVE) U Benzodiazepines Scrn (NEGATIVE) Urine Cocaine Screen (NEGATIVE) U Cannabinoids Screen (NEGATIVE) 09/19/20 Range/Units 15:04 WBC (4.8-10.8) x10^3/uL RBC (4.70-6.10) 10^6/uL Hgb (14.0-18.0) g/dL Hct (42.0-52.0) % MCV (80.0-94.0) fL MCH (27.0-31.0) pg MCHC (32.0-36.0) g/dL RDW (12.0-15.0) % Plt Count (130-450) 10^3/uL MPV (7.4-11.4) fL Neut # (Auto) (1.5-6.6) 10^3/uL Lymph # (Auto) (1.5-3.5) 10^3/uL Cherry # (Auto) (0.0-1.0) 10^3/uL Eos # (Auto) (0.0-0.7) 10^3/uL Baso # (Auto) (0.0-0.1) 10^3/uL Absolute Nucleated RBC x10^3/uL Nucleated RBC % /100WBC PT (9.9-12.6) secs INR (0.8-1.2) Sodium (135-145) mmol/L Potassium (3.5-5.0) mmol/L Chloride (101-111) mmol/L Carbon Dioxide (21-32) mmol/L Anion Gap (6-13) BUN (6-20) mg/dL Creatinine (0.6-1.2) mg/dL Estimated GFR (MDRD) (>89) Glucose (70-100) mg/dL Lactic Acid (0.5-2.2) mmol/L Calcium (8.5-10.3) mg/dL Magnesium (1.7-2.8) mg/dL Iron (45-182) ug/dL TIBC (250-450) ug/dL % Saturation (20-50) % Transferrin (180-329) mg/dL Ferritin (23.9-336.2) ng/mL Total Bilirubin (0.2-1.0) mg/dL AST (10-42) IU/L ALT (10-60) IU/L Alkaline Phosphatase (42-121) IU/L Total Protein (6.7-8.2) g/dL Albumin (3.2-5.5) g/dL Globulin (2.1-4.2) g/dL Albumin/Globulin Ratio (1.0-2.2) Lipase (22-51) U/L Urine Color Urine Clarity (CLEAR) Urine pH (5.0-7.5) PH Ur Specific Merna (1.002-1.030) Urine Protein (NEGATIVE) mg/dL Urine Glucose (UA) (NEGATIVE) mg/dL Urine Ketones (NEGATIVE) mg/dL Urine Occult Blood (NEGATIVE) Urine Nitrite (NEGATIVE) Urine Bilirubin (NEGATIVE) Urine Urobilinogen (NORMAL) E.U./dL Ur Leukocyte Esterase (NEGATIVE) Ur Microscopic Review Urine Culture Comments Nasal Adenovirus (PCR) Nasal B. parapertussis DNA (PCR) Nasal Coronavir 229E PCR Nasal Coronavir HKU1 PCR Nasal Coronavir NL63 PCR Nasal Coronavir OC43 PCR Nasal Enterovir/Rhinovir PCR Nasal Influenza B PCR Nasal Influenza A PCR Nasal Parainfluen 1 PCR Nasal Parainfluen 2 PCR Nasal Parainfluen 3 PCR Nasal Parainfluen 4 PCR Nasal RSV (PCR) Nasal B.pertussis DNA PCR Nasal C.pneumoniae (PCR) Nacho Human Metapneumo PCR Nasal M.pneumoniae (PCR) Nasal SARS-CoV-2 (PCR) Stl C. diff Tox B Gene POSITIVE A* (NEGATIVE) Urine Opiates Screen (NEGATIVE) Ur Oxycodone Screen (NEGATIVE) Urine Methadone Screen (NEGATIVE) Ur Propoxyphene Screen (NEGATIVE) Ur Barbiturates Screen (NEGATIVE) Ur Tricyclics Screen (NEGATIVE) Ur Phencyclidine Scrn (NEGATIVE) Ur Amphetamine Screen (NEGATIVE) U Methamphetamines Scrn (NEGATIVE) U Benzodiazepines Scrn (NEGATIVE) Urine Cocaine Screen (NEGATIVE) U Cannabinoids Screen (NEGATIVE) ABX Reporting Has patient been on IV antibiotics over the past 48 hours?: No Assessment/Plan - Problem List (1) C. difficile colitis Impression: He continues to have significant amounts of diarrhea. He also has mild abdominal pain. CT showed mild colitis. His white count today is trending down. We will keep him on oral vancomycin with today being day 2. He will need a total of 10 days of therapy. Continue gentle IV hydration. Diet as tolerated. (2) Chronic anemia Impression: His hemoglobin did decrease to 7.7 from 9.7 and I suspect this is likely dilutional given mild IV fluids he received. His most recent hemoglobin from September 10 was 8.0. His iron studies are suggestive of anemia of chronic disease. The current has been no evidence of bleeding. We will repeat hemoglobin this afternoon to ensure there is no significant drop. We will continue Coumadin for the time being unless there is evidence of hemorrhage. If his hemoglobin does not decrease further then we will look for occult bleeding in the GI tract. (3) Barretts esophagus Impression: Stable. Continue Protonix 40 mg twice daily Qualifiers: Caldwell's esophagus type: without dysplasia Qualified Code(s): K22.70 - Caldwell's esophagus without dysplasia (4) Chronic atrial fibrillation Impression: He is rate controlled. Continue Coumadin and carvedilol. (5) Chronic pain disorder Impression: Stable. We are continuing his home gabapentin. (6) Cognitive deficits Impression: He does have cognitive delay at baseline but per family, this has been exacerbated since his prolonged hospitalization. We suspect this is likely due to his prolonged hospitalization. We did order a CT of the head this morning which showed no acute abnormalities. He may potentially need an MRI at some point. He may also benefit from neurology evaluation on outpatient basis. His cognitive deficits may potentially have been exacerbated by hypovolemia from the C. difficile. He does have a history of alcohol abuse as well so there is a question of potentially Warnicke's. Nonetheless we will continue him on thiamine and avoid sedatives. This will need further work-up on an outpatient basis. (7) Generalized weakness Impression: Suspect this is likely multifactorial and due to his prolonged hospitalization at [facility] in his correction stay at [facility]. We will get PT evaluation while he is here as we suspect he may potentially need nursing home. (8) Hypertension Impression: He is currently normotensive. We will continue carvedilol 25 mg twice daily. We will hold off on the hydralazine given his blood pressure is controlled. Qualifiers: Hypertension type: primary hypertension Qualified Code(s): I10 - Essential (primary) hypertension (9) Loculated pleural effusion Impression: CT of the abdomen pelvis continues to show a loculated left pleural effusion which does appear to be chronic based on review of prior records. We will continue to monitor for the time being. (10) Type 2 diabetes mellitus with complication, with correction current use of insulin pump Impression: He is hypoglycemic this afternoon ago glucose in the 50s. And med rec has been completed and appears only on short acting insulin with meals. We will discontinue his Lantus. We have ordered an amp of dextrose to be given now. We will continue to monitor his blood glucose and follow-up the A1c. (11) COPD without exacerbation Impression: Stable. Continue home inhalers.
[2020-09-20] MEDS: WARFARIN 1 MG TABLET PO SCH (13:48)
--- NOTE | 2020-09-20 13:51 | PHARMACY PROGRESS NOTE ---
- Best Possible Medication History Admit Date and Time: 09/19/20 1844 Processed by: Pharmacy Medication History completed: Yes Patient Interview: Pt unable to participate Secondary Source(s): Pharmacy records, Insurance records, Facility MAR as ONLY source As the person ultimately responsible for medication therapy, providers are able to order a medication from an existing home medication list in [facility] via the "Reconcile Routine" prior to Confirmation of that medication by operations support professionals. Such practice is discouraged except when the physician, in their clinical judgment, deems that a medical need exists for a medication without regard to previous use.
[2020-09-20 14:13] LABS: ESTIMATED AVERAGE GLUCOSE 126 mg/dL (70-100)
[2020-09-20 14:54] LABS: HCT - HEMATOCRIT 21.6 % (42.0-52.0)
[2020-09-20] MEDS: PANTOPRAZOLE 40 MG TABLET PO SCH (17:00)
[2020-09-20] MEDS: FERROUS SULFATE 325 MG TABLET PO SCH (17:00)
[2020-09-20] MEDS ORDERED: DEXTROSE GEL 37.5 GM TUBE PO ONE ×2 (17:08→21:14)
[2020-09-20] MEDS: FORMOTEROL FUMARATE NEB 20 MCG/2 ML INH SCH (20:03)
[2020-09-20] MEDS: BUDESONIDE 0.5 MG/2 ML NEB INH SCH (20:03)
[2020-09-20] MEDS: traZODone 50 MG TABLET PO SCH (21:25)
[2020-09-20] MEDS: NORTRIPTYLINE 25 MG CAPSULE PO SCH (21:31)
[2020-09-21] MEDS: SODIUM CHLORIDE FLUSH 0.9% 10 ML SYRINGE IVP SCH ×3 (00:33→18:24)
[2020-09-21] MEDS: LACTATED RINGERS 1,000 ML IV SCH ×2 (02:46→13:51)
[2020-09-21] MEDS: oxyCODONE 5 MG TABLET PO PRN ×2 (02:50→16:36)
[2020-09-21] MEDS: GABAPENTIN 100 MG CAPSULE PO SCH ×3 (06:40→22:15)
[2020-09-21] MEDS: PANTOPRAZOLE 40 MG TABLET PO SCH ×2 (06:40→16:28)
[2020-09-21] MEDS ORDERED: INSULIN GLARGINE 300 UNIT/3 ML PEN SUBQ SCH (08:00)
[2020-09-21 08:09] LABS: BASOPHILS # (AUTO) 0.1 10^3/uL (0.0-0.1); BASOPHILS % (AUTO) 0.5 %; EOSINOPHILS # (AUTO) 0.4 10^3/uL (0.0-0.7); EOSINOPHILS % (AUTO) 3.5 %; HCT - HEMATOCRIT 23.8 % (42.0-52.0); HGB - HEMOGLOBIN 7.3 g/dL (14.0-18.0); LYMPHOCYTES # (AUTO) 1.3 10^3/uL (1.5-3.5); LYMPHOCYTES % (AUTO) 12.3 %; MEAN CORPUSCULAR HEMOGLOBIN 27.4 pg (27.0-31.0); MEAN CORPUSCULAR HGB CONC 30.7 g/dL (32.0-36.0); MEAN CORPUSCULAR VOLUME 89.5 fL (80.0-94.0); MONOCYTES # (AUTO) 0.7 10^3/uL (0.0-1.0); MONOCYTES % (AUTO) 6.4 %; NEUTROPHILS % (AUTO) 76.7 %; PLT - PLATELET COUNT 280 10^3/uL (130-450); RED BLOOD COUNT 2.66 10^6/uL (4.70-6.10); RED CELL DISTRIBUTION WIDTH 17.4 % (12.0-15.0); WHITE BLOOD COUNT 10.5 x10^3/uL (4.8-10.8)
[2020-09-21 08:12] LABS: INR 1.7 (0.8-1.2)
[2020-09-21] MEDS: THIAMINE 100 MG TABLET PO SCH (08:28)
[2020-09-21 08:29] LABS: CALCIUM 8.2 mg/dL (8.5-10.3); CREATININE 0.9 mg/dL (0.6-1.2); POTASSIUM 3.3 mmol/L (3.5-5.0)
[2020-09-21] MEDS: carvediloL 12.5 MG TABLET PO SCH ×2 (08:29→22:15)
[2020-09-21] MEDS: VANCOMYCIN 125 MG CAPSULE PO SCH ×4 (08:29→22:16)
[2020-09-21] MEDS: FOLIC ACID 1 MG TABLET PO SCH (08:29)
[2020-09-21] MEDS: BUDESONIDE 0.5 MG/2 ML NEB INH SCH ×2 (08:38→19:36)
[2020-09-21] MEDS: FORMOTEROL FUMARATE NEB 20 MCG/2 ML INH SCH ×2 (08:38→19:36)
[2020-09-21] MEDS: FERROUS SULFATE 325 MG TABLET PO SCH ×2 (09:47→16:28)
[2020-09-21] MEDS: WARFARIN 1 MG TABLET PO SCH (13:37)
[2020-09-21] MEDS ORDERED: POTASSIUM CHLORIDE 20 MEQ TABLET PO ONE (14:05)
--- NOTE | 2020-09-21 14:10 | PROVIDER PROGRESS NOTE ---
Subjective - Prog Note Date Prog Note Date: 09/21/20 - Subjective Subjective: He says abdominal pain this is improving. His diarrhea is much improved today. No nausea or vomiting. Tolerating a diet. Current Medications - Current Medications Current Medications: Active Medications Acetaminophen (Acetaminophen 325 Mg Tablet) 650 mg PO Q4HR PRN PRN Reason: Pain 1 to 4 Albuterol/Ipratropium (Ipratropium/Albuterol 3 Ml Neb) 3 ml INH Q4HR PRN PRN Reason: Wheezing Budesonide (Budesonide 0.5 Mg/2 Ml Neb) 0.5 mg INH RTBID [facility] Last Admin: 09/21/20 08:38 Dose: Not Given Documented by: Carvedilol (Carvedilol 12.5 Mg Tablet) 25 mg PO BID [facility] Last Admin: 09/21/20 08:29 Dose: 25 mg Documented by: Ferrous Sulfate (Ferrous Sulfate 325 Mg Tablet) 325 mg PO BIDWM [facility] Last Admin: 09/21/20 09:47 Dose: 325 mg Documented by: Folic Acid (Folic Acid 1 Mg Tablet) 1 mg PO DAILY [facility] Last Admin: 09/21/20 08:29 Dose: 1 mg Documented by: Formoterol Fumarate (Formoterol Fumarate Neb 20 Mcg/2 Ml) 20 mcg INH RTBID [facility] Last Admin: 09/21/20 08:38 Dose: Not Given Documented by: Gabapentin (Gabapentin 100 Mg Capsule) 200 mg PO TID [facility] Last Admin: 09/21/20 13:37 Dose: 200 mg Documented by: Lactated Ringer's (Lr) 1,000 mls @ 100 mls/hr IV .Q10H [facility] Last Admin: 09/21/20 13:51 Dose: 100 mls/hr Documented by: Morphine Sulfate (Morphine 2 Mg/Ml Carpuject) 2 mg IVP Q2HR PRN PRN Reason: Pain 8 to 10 Multi-Ingredient Ointment (Zinc Oxide 20% Oint 30 Gm Tube) 1 applic TOP PRN PRN PRN Reason: Skin Care Last Admin: 09/20/20 21:33 Dose: 1 applic Documented by: Nortriptyline HCl (Nortriptyline 25 Mg Capsule) 50 mg PO QPM [facility] Last Admin: 09/20/20 21:31 Dose: 50 mg Documented by: Ondansetron HCl (Ondansetron 4 Mg/2 Ml Vial) 4 mg IVP Q6HR PRN PRN Reason: Nausea / Vomiting Oxycodone HCl (Oxycodone 5 Mg Tablet) 5 mg PO Q4HR PRN PRN Reason: Pain 5 to 7 Last Admin: 09/21/20 02:50 Dose: 5 mg Documented by: Pantoprazole Sodium (Pantoprazole 40 Mg Tablet) 40 mg PO BIDAC [facility] Last Admin: 09/21/20 06:40 Dose: 40 mg Documented by: Potassium Chloride (Potassium Chloride 20 Meq Tablet) 40 meq PO ONCE ONE Stop: 09/21/20 14:06 Sodium Chloride (Sodium Chloride Flush 0.9% 10 Ml Syringe) 10 ml IVP PRN PRN PRN Reason: NEEDED PER PROVIDER ORDERS Last Admin: 09/19/20 20:34 Dose: 10 ml Documented by: Sodium Chloride (Sodium Chloride Flush 0.9% 10 Ml Syringe) 10 ml IVP 0100,0900,1700 [facility] Last Admin: 09/21/20 08:29 Dose: Not Given Documented by: Thiamine HCl (Thiamine 100 Mg Tablet) 100 mg PO DAILY [facility] Last Admin: 09/21/20 08:28 Dose: 100 mg Documented by: Trazodone HCl (Trazodone 50 Mg Tablet) 50 mg PO QPM [facility] Last Admin: 09/20/20 21:25 Dose: 50 mg Documented by: Vancomycin HCl (Vancomycin 125 Mg Capsule) 125 mg PO QID [facility] Last Admin: 09/21/20 13:09 Dose: 125 mg Documented by: Warfarin Sodium (Warfarin 1 Mg Tablet) 3 mg PO QDWARFARIN [facility] Last Admin: 09/21/20 13:37 Dose: 3 mg Documented by: Carvedilol [Coreg] 50 mg PO BID 09/19/20 Gabapentin [Neurontin] 200 mg PO TID 09/19/20 Warfarin Sodium [Coumadin] 3 mg PO DAILY 09/19/20 hydrALAZINE [Apresoline] 50 mg PO TID 09/19/20 Budesonide/Formoterol Fumarate [Symbicort 160-4.5 Mcg Inhaler] 2 puffs INH BID 09/20/20 Docusate Sodium 100Mg Capsule [Colace 100Mg Capsule] 100 mg PO BID 09/20/20 Insulin Lispro [Insulin Lispro Bob Kwikpen] 1 - 5 unit SQ ACHS 09/20/20 Ipratropium/Albuterol [Duoneb] 3 ml INH Q6H 09/20/20 Magnesium Oxide [Mag Ox] 400 mg PO BID 09/20/20 Pantoprazole [Protonix] 40 mg PO BID 09/20/20 Senna [Senokot] 17.2 mg PO BID 09/20/20 Sevelamer [Renagel] 800 mg PO TID 09/20/20 polyethylene glycoL 3350 [Polyethylene Glycol 3350] 17 gm PO DAILY 09/20/20 Objective - Vital Signs/Intake & Output Reviewed Vital Signs: Yes Vital Signs: Vital Signs x48h Temp Pulse Resp BP Pulse Ox 09/21/20 07:53 36.5 C 68 18 107/70 97 Intake & Output: Intake & Output 09/18/20 09/19/20 09/20/20 09/21/20 23:59 23:59 23:59 23:59 Intake Total 1100 3416.333 2811 Output Total 1050 800 Balance 1100 2366.333 2010 - Objective General Appearance: positive: No acute distress, Alert Eyes Bilateral: positive: Normal inspection, Other (Conjuctival pallor) Respiratory: positive: No respiratory distress Abdomen: positive: No distention, Tenderness (Minimal diffuse tenderness.). ne gative: Guarding, Rebound Skin: positive: Warm, Dry, Pallor Extremities: positive: No pedal edema Neurologic/Psychiatric: negative: Disoriented to person, Disoriented to place - Lab Results Fish Bones: 09/21/20 07:50 09/21/20 07:50 Other Labs: Lab Results x24hrs 09/21/20 09/21/20 09/21/20 Range/Units 11:54 07:50 07:50 WBC (4.8-10.8) x10^3/uL RBC (4.70-6.10) 10^6/uL Hgb (14.0-18.0) g/dL Hct (42.0-52.0) % MCV (80.0-94.0) fL MCH (27.0-31.0) pg MCHC (32.0-36.0) g/dL RDW (12.0-15.0) % Plt Count (130-450) 10^3/uL MPV (7.4-11.4) fL Neut # (Auto) (1.5-6.6) 10^3/uL Lymph # (Auto) (1.5-3.5) 10^3/uL [place] # (Auto) (0.0-1.0) 10^3/uL Eos # (Auto) (0.0-0.7) 10^3/uL Baso # (Auto) (0.0-0.1) 10^3/uL Absolute Nucleated RBC x10^3/uL Nucleated RBC % /100WBC PT 18.0 H (9.9-12.6) secs INR 1.7 H (0.8-1.2) Sodium (135-145) mmol/L Potassium (3.5-5.0) mmol/L Chloride (101-111) mmol/L Carbon Dioxide (21-32) mmol/L Anion Gap (6-13) BUN (6-20) mg/dL Creatinine (0.6-1.2) mg/dL Estimated GFR (MDRD) (>89) Glucose (70-100) mg/dL Estimat Average Glucose (70-100) mg/dL Hemoglobin A1c % (4.27-6.07) % Calcium (8.5-10.3) mg/dL Magnesium (1.7-2.8) mg/dL Blood Type A POSITIVE Blood Type Recheck A POSITIVE Antibody Screen NEGATIVE 09/21/20 09/21/20 09/20/20 Range/Units 07:50 07:50 14:35 WBC 10.5 (4.8-10.8) x10^3/uL RBC 2.66 L (4.70-6.10) 10^6/uL Hgb 7.3 L 7.0 L* (14.0-18.0) g/dL Hct 23.8 L 21.6 L (42.0-52.0) % MCV 89.5 (80.0-94.0) fL MCH 27.4 (27.0-31.0) pg MCHC 30.7 L (32.0-36.0) g/dL RDW 17.4 H (12.0-15.0) % Plt Count 280 (130-450) 10^3/uL MPV 10.0 (7.4-11.4) fL Neut # (Auto) 8.0 H (1.5-6.6) 10^3/uL Lymph # (Auto) 1.3 L (1.5-3.5) 10^3/uL [place] # (Auto) 0.7 (0.0-1.0) 10^3/uL Eos # (Auto) 0.4 (0.0-0.7) 10^3/uL Baso # (Auto) 0.1 (0.0-0.1) 10^3/uL Absolute Nucleated RBC 0.00 x10^3/uL Nucleated RBC % 0.0 /100WBC PT (9.9-12.6) secs INR (0.8-1.2) Sodium 136 (135-145) mmol/L Potassium 3.3 L (3.5-5.0) mmol/L Chloride 102 (101-111) mmol/L Carbon Dioxide 27 (21-32) mmol/L Anion Gap 7.0 (6-13) BUN 18 (6-20) mg/dL Creatinine 0.9 (0.6-1.2) mg/dL Estimated GFR (MDRD) 86 L (>89) Glucose 81 (70-100) mg/dL Estimat Average Glucose (70-100) mg/dL Hemoglobin A1c % (4.27-6.07) % Calcium 8.2 L (8.5-10.3) mg/dL Magnesium 2.0 (1.7-2.8) mg/dL Blood Type Blood Type Recheck Antibody Screen 09/20/20 Range/Units 07:11 WBC (4.8-10.8) x10^3/uL RBC (4.70-6.10) 10^6/uL Hgb (14.0-18.0) g/dL Hct (42.0-52.0) % MCV (80.0-94.0) fL MCH (27.0-31.0) pg MCHC (32.0-36.0) g/dL RDW (12.0-15.0) % Plt Count (130-450) 10^3/uL MPV (7.4-11.4) fL Neut # (Auto) (1.5-6.6) 10^3/uL Lymph # (Auto) (1.5-3.5) 10^3/uL [place] # (Auto) (0.0-1.0) 10^3/uL Eos # (Auto) (0.0-0.7) 10^3/uL Baso # (Auto) (0.0-0.1) 10^3/uL Absolute Nucleated RBC x10^3/uL Nucleated RBC % /100WBC PT (9.9-12.6) secs INR (0.8-1.2) Sodium (135-145) mmol/L Potassium (3.5-5.0) mmol/L Chloride (101-111) mmol/L Carbon Dioxide (21-32) mmol/L Anion Gap (6-13) BUN (6-20) mg/dL Creatinine (0.6-1.2) mg/dL Estimated GFR (MDRD) (>89) Glucose (70-100) mg/dL Estimat Average Glucose 126 H (70-100) mg/dL Hemoglobin A1c % 6.0 (4.27-6.07) % Calcium (8.5-10.3) mg/dL Magnesium (1.7-2.8) mg/dL Blood Type Blood Type Recheck Antibody Screen ABX Reporting Has patient been on IV antibiotics over the past 48 hours?: No Assessment/Plan - Problem List (1) C. difficile colitis Impression: He is having less diarrhea and clinically appears improved. We will continue oral vancomycin with today being day 3. Continue the diet as tolerated. We will discontinue IV fluids. (2) Chronic anemia Impression: Yesterday afternoon his hemoglobin did decrease to 7 but this morning it is 7.3. Although there has been no obvious bleeding, his stool was found to be heme positive. He has had multiple endoscopies over the past few months given the esophageal rupture. He is also on Coumadin and his INR is therapeutic. His iron studies were digestive of anemia of chronic disease. He likely does have a component of iron deficiency as well and so we have started him on oral iron segmentation. At this point, we will continue to monitor his hemoglobin and we will recheck again this afternoon and tomorrow morning. If it decreases then we will talk with general surgery if they would be willing to perform another endoscopy although I have low suspicion for a significant GI bleed. We could also consider discontinuing his warfarin for the time being. (3) Heme positive stool Impression: His stool is heme positive. This may be due to the C. difficile colitis especially given he is on anticoagulation and he may have mucosal irritation. His hemoglobin has been stable since yesterday afternoon we will continue to monitor this. As mentioned above, will consider a general surgery for endoscopy if his hemoglobin decreases. (4) Barretts esophagus Impression: He has known Caldwell's esophagus. His stool is heme positive but he has had multiple endoscopies recently. We will continue him on Protonix 4 mg twice daily and consider a general surgery consult for endoscopy if his hemoglobin decreases Qualifiers: Caldwell's esophagus type: without dysplasia Qualified Code(s): K22.70 - Caldwell's esophagus without dysplasia (5) Chronic atrial fibrillation Impression: He remains rate controlled and we will continue carvedilol. We will continue Coumadin for the time being given there is no evidence of significant bleeding but we may need to consider discontinuing it if his hemoglobin drops given his stool is heme positive. (6) Chronic pain disorder Impression: Stable. Continue home medications. (7) Cognitive deficits Impression: He does have cognitive delay at baseline but per family, this has been exacerbated since his prolonged hospitalization. We suspect this is likely due to his prolonged hospitalization. We did order a CT of the head this morning which showed no acute abnormalities. He may potentially need an MRI at some point. He may also benefit from neurology evaluation on outpatient basis. His cognitive deficits may potentially have been exacerbated by hypovolemia from the C. difficile. He does have a history of alcohol abuse as well so there is a question of potentially Warnicke's. Nonetheless we will continue him on thiamine and avoid sedatives. This will need further work-up on an outpatient basis. 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 He has been evaluated by physical therapy and SNF is recommended. Social work has met with him to discuss potential options. (9) Hypertension Impression: Stable on carvedilol which we will continue. Hold hydralazine given he is normotensive. Qualifiers: Hypertension type: primary hypertension Qualified Code(s): I10 - Essential (primary) hypertension (10) Loculated pleural effusion Impression: CT of the abdomen pelvis continues to show a loculated left pleural effusion which does appear to be chronic based on review of prior records. We will continue to monitor for the time being. 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 His glucose has been well controlled and so we will just continue blood glucose checks and sliding scale. (12) COPD without exacerbation Impression: Stable. Continue home inhalers.
[2020-09-21] MEDS: ZINC OXIDE 20% OINT 30 GM TUBE TOP PRN (16:28)
[2020-09-21] MEDS: NORTRIPTYLINE 25 MG CAPSULE PO SCH (22:15)
[2020-09-21] MEDS: traZODone 50 MG TABLET PO SCH (22:15)
[2020-09-22] MEDS: SODIUM CHLORIDE FLUSH 0.9% 10 ML SYRINGE IVP SCH ×3 (00:31→16:08)
[2020-09-22] MEDS: SODIUM CHLORIDE FLUSH 0.9% 10 ML SYRINGE IVP PRN ×2 (00:46→00:58)
[2020-09-22] MEDS: ONDANSETRON 4 MG/2 ML VIAL IVP PRN (00:46)
[2020-09-22] MEDS: MORPHINE 2 MG/ML CARPUJECT IVP PRN (00:46)
[2020-09-22] MEDS: PANTOPRAZOLE 40 MG TABLET PO SCH ×2 (06:26→16:07)
[2020-09-22] MEDS: GABAPENTIN 100 MG CAPSULE PO SCH ×3 (06:26→21:37)
[2020-09-22 06:32] LABS: BASOPHILS # (AUTO) 0.1 10^3/uL (0.0-0.1); BASOPHILS % (AUTO) 0.5 %; EOSINOPHILS # (AUTO) 0.4 10^3/uL (0.0-0.7); EOSINOPHILS % (AUTO) 4.1 %; LYMPHOCYTES # (AUTO) 1.1 10^3/uL (1.5-3.5); LYMPHOCYTES % (AUTO) 11.5 %; MEAN CORPUSCULAR HEMOGLOBIN 27.6 pg (27.0-31.0); MEAN CORPUSCULAR HGB CONC 30.9 g/dL (32.0-36.0); MEAN CORPUSCULAR VOLUME 89.4 fL (80.0-94.0); MEAN PLATELET VOLUME 9.5 fL (7.4-11.4); MONOCYTES # (AUTO) 0.6 10^3/uL (0.0-1.0); MONOCYTES % (AUTO) 6.6 %; NEUTROPHILS # (AUTO) 7.4 10^3/uL (1.5-6.6); NEUTROPHILS % (AUTO) 76.3 %; PLT - PLATELET COUNT 275 10^3/uL (130-450); RED BLOOD COUNT 2.46 10^6/uL (4.70-6.10); RED CELL DISTRIBUTION WIDTH 17.1 % (12.0-15.0); WHITE BLOOD COUNT 9.7 x10^3/uL (4.8-10.8)
[2020-09-22 06:37] LABS: INR 1.8 (0.8-1.2); PT - PROTHROMBIN TIME 19.3 secs (9.9-12.6)
[2020-09-22 06:38] LABS: HGB - HEMOGLOBIN 6.8 g/dL (14.0-18.0)
[2020-09-22 06:41] LABS: CREATININE 0.9 mg/dL (0.6-1.2); MAGNESIUM 1.8 mg/dL (1.7-2.8); POTASSIUM 3.7 mmol/L (3.5-5.0)
[2020-09-22] MEDS: FORMOTEROL FUMARATE NEB 20 MCG/2 ML INH SCH ×2 (08:02→21:08)
[2020-09-22] MEDS: BUDESONIDE 0.5 MG/2 ML NEB INH SCH ×2 (08:02→21:09)
[2020-09-22] MEDS: FERROUS SULFATE 325 MG TABLET PO SCH ×2 (08:26→16:07)
[2020-09-22] MEDS: carvediloL 12.5 MG TABLET PO SCH ×2 (08:27→21:37)
[2020-09-22] MEDS: VANCOMYCIN 125 MG CAPSULE PO SCH ×4 (08:27→21:37)
[2020-09-22] MEDS: FOLIC ACID 1 MG TABLET PO SCH (08:27)
[2020-09-22] MEDS: THIAMINE 100 MG TABLET PO SCH (08:30)
[2020-09-22] MEDS: WARFARIN 1 MG TABLET PO SCH (13:42)
[2020-09-22] MEDS: oxyCODONE 5 MG TABLET PO PRN ×2 (16:07→21:37)
[2020-09-22 19:17] LABS: HGB - HEMOGLOBIN 7.9 g/dL (14.0-18.0)
[2020-09-22] MEDS: IPRATROPIUM/ALBUTEROL 3 ML NEB INH PRN (21:08)
--- NOTE | 2020-09-22 21:24 | PROVIDER PROGRESS NOTE ---
Subjective - Prog Note Date Prog Note Date: 09/22/20 Prog Note Time: 21:22 - Subjective Pt reports feeling: Improved Subjective: Daytime hospitalist is asked that I round in the evening. Patient has been stable over the course of the day. He continues to reiterate that his diarrhea is improving and he has almost no abdominal pain. He is tolerating a carb controlled diet. He is occasionally incontinent of urine, has to wear briefs or pads. Still pretty weak and tired. Review of vital signs shows him to be afebrile. Pulse rate in the 60s to 70s. Blood pressure stable. He is requiring anywhere between 1 to 2 L nasal cannula to maintain O2 sat at 94 to 99%. Current Medications - Current Medications Current Medications: Active Medications Acetaminophen (Acetaminophen 325 Mg Tablet) 650 mg PO Q4HR PRN PRN Reason: Pain 1 to 4 Albuterol/Ipratropium (Ipratropium/Albuterol 3 Ml Neb) 3 ml INH Q4HR PRN PRN Reason: Wheezing Last Admin: 09/22/20 21:08 Dose: 3 ml Documented by: Budesonide (Budesonide 0.5 Mg/2 Ml Neb) 0.5 mg INH RTBID [facility] Last Admin: 09/22/20 21:09 Dose: 0.5 mg Documented by: Carvedilol (Carvedilol 12.5 Mg Tablet) 25 mg PO BID [facility] Last Admin: 09/22/20 08:27 Dose: 25 mg Documented by: Ferrous Sulfate (Ferrous Sulfate 325 Mg Tablet) 325 mg PO BIDWM [facility] Last Admin: 09/22/20 16:07 Dose: 325 mg Documented by: Folic Acid (Folic Acid 1 Mg Tablet) 1 mg PO DAILY [facility] Last Admin: 09/22/20 08:27 Dose: 1 mg Documented by: Formoterol Fumarate (Formoterol Fumarate Neb 20 Mcg/2 Ml) 20 mcg INH RTBID [facility] Last Admin: 09/22/20 21:08 Dose: 20 mcg Documented by: Gabapentin (Gabapentin 100 Mg Capsule) 200 mg PO TID [facility] Last Admin: 09/22/20 13:42 Dose: 200 mg Documented by: Morphine Sulfate (Morphine 2 Mg/Ml Carpuject) 2 mg IVP Q2HR PRN PRN Reason: Pain 8 to 10 Last Admin: 09/22/20 00:46 Dose: 2 mg Documented by: Multi-Ingredient Ointment (Zinc Oxide 20% Oint 30 Gm Tube) 1 applic TOP PRN PRN PRN Reason: Skin Care Last Admin: 09/21/20 16:28 Dose: 1 applic Documented by: Nortriptyline HCl (Nortriptyline 25 Mg Capsule) 50 mg PO QPM [facility] Last Admin: 09/21/20 22:15 Dose: 50 mg Documented by: Ondansetron HCl (Ondansetron 4 Mg/2 Ml Vial) 4 mg IVP Q6HR PRN PRN Reason: Nausea / Vomiting Last Admin: 09/22/20 00:46 Dose: 4 mg Documented by: Oxycodone HCl (Oxycodone 5 Mg Tablet) 5 mg PO Q4HR PRN PRN Reason: Pain 5 to 7 Last Admin: 09/22/20 16:07 Dose: 5 mg Documented by: Pantoprazole Sodium (Pantoprazole 40 Mg Tablet) 40 mg PO BIDAC [facility] Last Admin: 09/22/20 16:07 Dose: 40 mg Documented by: Sodium Chloride (Sodium Chloride Flush 0.9% 10 Ml Syringe) 10 ml IVP PRN PRN PRN Reason: NEEDED PER PROVIDER ORDERS Last Admin: 09/22/20 00:58 Dose: 10 ml Documented by: Sodium Chloride (Sodium Chloride Flush 0.9% 10 Ml Syringe) 10 ml IVP 0100,09 00,1700 [facility] Last Admin: 09/22/20 16:08 Dose: Not Given Documented by: Thiamine HCl (Thiamine 100 Mg Tablet) 100 mg PO DAILY [facility] Last Admin: 09/22/20 08:30 Dose: 100 mg Documented by: Trazodone HCl (Trazodone 50 Mg Tablet) 50 mg PO QPM [facility] Last Admin: 09/21/20 22:15 Dose: 50 mg Documented by: Vancomycin HCl (Vancomycin 125 Mg Capsule) 125 mg PO QID [facility] Last Admin: 09/22/20 16:07 Dose: 125 mg Documented by: Warfarin Sodium (Warfarin 1 Mg Tablet) 3 mg PO QDWARFARIN [facility] Last Admin: 09/22/20 13:42 Dose: 3 mg Documented by: Carvedilol [Coreg] 50 mg PO BID 09/19/20 Gabapentin [Neurontin] 200 mg PO TID 09/19/20 Warfarin Sodium [Coumadin] 3 mg PO DAILY 09/19/20 hydrALAZINE [Apresoline] 50 mg PO TID 09/19/20 Budesonide/Formoterol Fumarate [Symbicort 160-4.5 Mcg Inhaler] 2 puffs INH BID 09/20/20 Docusate Sodium 100Mg Capsule [Colace 100Mg Capsule] 100 mg PO BID 09/20/20 Insulin Lispro [Insulin Lispro Bob Kwikpen] 1 - 5 unit SQ ACHS 09/20/20 Ipratropium/Albuterol [Duoneb] 3 ml INH Q6H 09/20/20 Magnesium Oxide [Mag Ox] 400 mg PO BID 09/20/20 Pantoprazole [Protonix] 40 mg PO BID 09/20/20 Senna [Senokot] 17.2 mg PO BID 09/20/20 Sevelamer [Renagel] 800 mg PO TID 09/20/20 polyethylene glycoL 3350 [Polyethylene Glycol 3350] 17 gm PO DAILY 09/20/20 Objective - Vital Signs/Intake & Output Reviewed Vital Signs: Yes Vital Signs: Vital Signs x48h Temp Pulse Pulse Resp BP BP Pulse Ox 09/22/20 21:13 66 20 09/22/20 18:01 94 09/22/20 18:00 37 C 70 17 129/63 09/22/20 16:49 36.5 C 65 20 144/66 H 99 09/22/20 15:20 36.7 C 62 18 128/59 L 09/22/20 15:05 36.7 C 61 16 124/59 L 09/22/20 15:00 36.5 C 62 18 125/58 L Intake & Output: Intake & Output 09/19/20 09/20/20 09/21/20 09/22/20 23:59 23:59 23:59 23:59 Intake Total 1100 3416.333 3106 1175 Output Total 1050 1150 1025 Balance 1100 2366.333 1956 150 - Objective General Appearance: positive: No acute distress, Other (He was asleep, TV on, remote in his hand when I walk in the room. I turned off the TV volume, touched his shoulder to wake him up but it took a couple of general shakes for him to wake up but he is startled, disoriented to time and place initially.Bearded, disheveled male who looks older than state) Eyes Bilateral: positive: PERRL, EOMI ENT: positive: No signs of dehydration Neck: positive: No JVD. negative: Lymphadenopathy (R), Lymphadenopathy (L), Stiff neck Respiratory: positive: No respiratory distress, Other (Snoring when he was asleep on his back, mouth open. But no apnea.). negative: Wheezes, Rales, Rhonchi Cardiovascular: positive: Regular rate & rhythm, Systolic murmur. negative: Tachycardia, Gallop/S4, Friction rub Abdomen: positive: No organomegaly, Tenderness (He says that at rest he is fine. But when I palpate him, he does wince and says the pain is probably a 5 out of 10. No localization. Just diffuse. Slightly distended abdominal wall.), Abnml bowel sounds (Hyperactive) Skin: positive: Warm, Dry, Pallor Extremities: positive: Full ROM, No pedal edema Neurologic/Psychiatric: positive: CN's nml (2-12), Motor nml, Disoriented to place, Disoriented to time, Other (Nursing reports that he is forgetful. Forgets medication that was already given to home and asked for it again. Repetitive questions at times.) - Lab Results Fish Bones: 09/22/20 19:11 09/22/20 06:23 Other Labs: Lab Results x24hrs 09/22/20 09/22/20 09/22/20 Range/Units 19:11 06:23 06:23 WBC (4.8-10.8) x10^3/uL RBC (4.70-6.10) 10^6/uL Hgb 7.9 L (14.0-18.0) g/dL Hct 25.0 L (42.0-52.0) % MCV (80.0-94.0) fL MCH (27.0-31.0) pg MCHC (32.0-36.0) g/dL RDW (12.0-15.0) % Plt Count (130-450) 10^3/uL MPV (7.4-11.4) fL Neut # (Auto) (1.5-6.6) 10^3/uL Lymph # (Auto) (1.5-3.5) 10^3/uL [place] # (Auto) (0.0-1.0) 10^3/uL Eos # (Auto) (0.0-0.7) 10^3/uL Baso # (Auto) (0.0-0.1) 10^3/uL Absolute Nucleated RBC x10^3/uL Nucleated RBC % /100WBC PT 19.3 H (9.9-12.6) secs INR 1.8 H (0.8-1.2) Sodium 136 (135-145) mmol/L Potassium 3.7 (3.5-5.0) mmol/L Chloride 102 (101-111) mmol/L Carbon Dioxide 27 (21-32) mmol/L Anion Gap 7.0 (6-13) BUN 13 (6-20) mg/dL Creatinine 0.9 (0.6-1.2) mg/dL Estimated GFR (MDRD) 86 L (>89) Glucose 119 H (70-100) mg/dL Calcium 8.0 L (8.5-10.3) mg/dL Magnesium 1.8 (1.7-2.8) mg/dL Blood Type Antibody Screen Crossmatch IS Only 09/22/20 09/21/20 Range/Units 06:23 07:50 WBC 9.7 (4.8-10.8) x10^3/uL RBC 2.46 L (4.70-6.10) 10^6/uL Hgb 6.8 L* (14.0-18.0) g/dL Hct 22.0 L (42.0-52.0) % MCV 89.4 (80.0-94.0) fL MCH 27.6 (27.0-31.0) pg MCHC 30.9 L (32.0-36.0) g/dL RDW 17.1 H (12.0-15.0) % Plt Count 275 (130-450) 10^3/uL MPV 9.5 (7.4-11.4) fL Neut # (Auto) 7.4 H (1.5-6.6) 10^3/uL Lymph # (Auto) 1.1 L (1.5-3.5) 10^3/uL [place] # (Auto) 0.6 (0.0-1.0) 10^3/uL Eos # (Auto) 0.4 (0.0-0.7) 10^3/uL Baso # (Auto) 0.1 (0.0-0.1) 10^3/uL Absolute Nucleated RBC 0.00 x10^3/uL Nucleated RBC % 0.0 /100WBC PT (9.9-12.6) secs INR (0.8-1.2) Sodium (135-145) mmol/L Potassium (3.5-5.0) mmol/L Chloride (101-111) mmol/L Carbon Dioxide (21-32) mmol/L Anion Gap (6-13) BUN (6-20) mg/dL Creatinine (0.6-1.2) mg/dL Estimated GFR (MDRD) (>89) Glucose (70-100) mg/dL Calcium (8.5-10.3) mg/dL Magnesium (1.7-2.8) mg/dL Blood Type A POSITIVE Antibody Screen NEGATIVE Crossmatch IS Only See Detail Assessment/Plan - Problem List (1) C. difficile colitis Impression: (1) C. difficile colitis Impression: He continues to have less diarrhea than on admission and clinically appears improved. We will continue oral vancomycin with today being day 4. Continue the diet as tolerated. IV fluids were discontinued September 21. So far maintaining adequate p.o. intake. Creatinine was 1.0 on admission and 0.9 today. (2) Chronic anemia Impression: 09/20 afternoon his hemoglobin did decrease to 7 but morning 09/21 it was 7.3. Although there has been no obvious bleeding, his stool was found to be heme positive. He has had multiple endoscopies over the past few months given the esophageal rupture. He is also on Coumadin and his INR is therapeutic. His iron studies were diagnostic of anemia of chronic disease. He likely does have a component of iron deficiency as well and so we have started him on oral iron segmentation. Hemoglobin was 6.8 this morning. As such we transfused him 1 unit of blood and at change of shift, 7 PM, hemoglobin is 7.9. We have spoken to general surgery about doing an endoscopy on him. General surgery does not know what he wants to do. He says he may discuss the case with his surgical colleagues at [place]. And then states that if we could please call his surgical colleagues at [place] to see what they would do. Depending on their wishes, he may or may not scoped the patient during the stay. There is also the possibility the patient to be discharged and be scoped in the outpatient setting. If surgery opts not to do any intervention during the stay, I would recommend that we watch his hemoglobin today and tomorrow. If he is stable by tomorrow, he could be stable enough for discharge with an outpatient evaluation. (3) Heme positive stool Impression: His stool is heme positive. This may be due to the C. difficile colitis especially given he is on anticoagulation and he may have mucosal irritation. Management as in #2. (4) Barretts esophagus Impression: He has known Caldwell's esophagus. His stool is heme positive but he has had multiple endoscopies recently. We will continue him on Protonix 40 mg twice daily and have asked general surgery for consult to be considered for endoscopy if his hemoglobin decreases Qualifiers: Caldwell's esophagus type: without dysplasia Qualified Code(s): K22.70 - Caldwell's esophagus without dysplasia (5) Chronic atrial fibrillation Impression: He remains rate controlled and we will continue carvedilol. We will continue Coumadin for the time being given there is no evidence of significant bleeding but we may need to consider discontinuing it if his hemoglobin drops given his stool is heme positive. (6) Chronic pain disorder Impression: Stable. Continue home medications. (7) Cognitive deficits Impression: He does have cognitive delay at baseline but per family, this has been exacerbated since his prolonged hospitalization. We suspect this is likely due to his prolonged hospitalization. We did order a CT of the head the morning after admission which showed no acute abnormalities. He may potentially need an MRI at some point. He may also benefit from neurology evaluation on outpatient basis. His cognitive deficits may potentially have been exacerbated by hypovolemia from the C. difficile. He does have a history of alcohol abuse as well so there is a question of potentially Wernicke's. Nonetheless we will continue him on thiamine and avoid sedatives. This will need further work-up on an outpatient basis. (8) Generalized weakness Impression: Suspect this is likely multifactorial and due to his prolonged hospitalization at [place] in his long term acute care registered nurse stay at [place]. He has been evaluated by physical therapy and SNF is recommended. Social work has met with him to discuss potential options. PT is working with him and today's report: Pt tranferring from supine to sit w/ supervision of therapist and HOB elevated. Pt complaining of dizziness immediatley upon sitting up. Pt stating, "I hope I don't get sick." Pt reporting bouts of dizziness occur occassionally but have been worse since being at the hospital. Pt sitting EOB x3-4 minutes to recover from dizzy episode. Pt able to continue w/ therapy following rest. Pt performing sit to stand w/ FWW and min A of therapist. Pt performing stand pivot w/ FWW and CGA of therapist to chair in room. Pt complaining of dizziness following transfer. Pt resting x5 minutes in chair and stating, "no I want to go back to bed, I don't want to stay up in the chair." Pt performing sit to stand w/ min A and FWW and stand pivot back to bed w/ CGA. Pt needing addional time to recover from stand piv transfer before transferring from sit to supine. Pt then transferring sit to supine independently. Pt then scooting up in bed w/ min A of therapist. (9) Hypertension Impression: Stable on carvedilol which we will continue. Hold hydralazine given he is normo tensive. Qualifiers: Hypertension type: primary hypertension Qualified Code(s): I10 - Essential (primary) hypertension (10) Loculated pleural effusion Impression: CT of the abdomen pelvis continues to show a loculated left pleural effusion which does appear to be chronic based on review of prior records. We will continue to monitor for the time being. (11) Type 2 diabetes mellitus with complication, with long term acute care registered nurse current use of insulin pump Impression: His A1c was 6% although this can be falsely low if he has received multiple blood transfusions for his prolonged hospitalization. His glucose has been well controlled and so we will just continue blood glucose checks and sliding scale. So far, since admission September 20, his glucose has been very well controlled. September 20 he varied from 58 with only 1 reading at 177. All the rest were below 125. September 21 he varied from 69-120. Today he has been 107, 108, 136, 124. He has not required any sliding scale insulin to control him. (12) COPD without exacerbation Impression: Stable. Continue home inhalers.
[2020-09-22] MEDS: NORTRIPTYLINE 25 MG CAPSULE PO SCH (21:37)
[2020-09-22] MEDS: traZODone 50 MG TABLET PO SCH (21:37)
[2020-09-22] MEDS: ZINC OXIDE 20% OINT 30 GM TUBE TOP PRN (21:38)
[2020-09-23] MEDS: oxyCODONE 5 MG TABLET PO PRN ×3 (02:32→17:44)
[2020-09-23] MEDS: SODIUM CHLORIDE FLUSH 0.9% 10 ML SYRINGE IVP SCH ×3 (02:33→17:50)
[2020-09-23 06:03] LABS: BASOPHILS # (AUTO) 0.1 10^3/uL (0.0-0.1); BASOPHILS % (AUTO) 0.5 %; EOSINOPHILS # (AUTO) 0.4 10^3/uL (0.0-0.7); EOSINOPHILS % (AUTO) 4.3 %; HCT - HEMATOCRIT 25.7 % (42.0-52.0); HGB - HEMOGLOBIN 8.1 g/dL (14.0-18.0); LYMPHOCYTES # (AUTO) 1.2 10^3/uL (1.5-3.5); LYMPHOCYTES % (AUTO) 13.1 %; MEAN CORPUSCULAR HEMOGLOBIN 28.4 pg (27.0-31.0); MEAN CORPUSCULAR HGB CONC 31.5 g/dL (32.0-36.0); MEAN CORPUSCULAR VOLUME 90.2 fL (80.0-94.0); MONOCYTES # (AUTO) 0.6 10^3/uL (0.0-1.0); MONOCYTES % (AUTO) 6.8 %; NEUTROPHILS # (AUTO) 6.9 10^3/uL (1.5-6.6); PLT - PLATELET COUNT 290 10^3/uL (130-450); RED BLOOD COUNT 2.85 10^6/uL (4.70-6.10); RED CELL DISTRIBUTION WIDTH 16.4 % (12.0-15.0); WHITE BLOOD COUNT 9.3 x10^3/uL (4.8-10.8)
[2020-09-23 06:15] LABS: CALCIUM 8.1 mg/dL (8.5-10.3); CREATININE 0.9 mg/dL (0.6-1.2); MAGNESIUM 1.7 mg/dL (1.7-2.8); POTASSIUM 3.8 mmol/L (3.5-5.0)
[2020-09-23] MEDS: GABAPENTIN 100 MG CAPSULE PO SCH ×3 (06:33→21:40)
[2020-09-23] MEDS: PANTOPRAZOLE 40 MG TABLET PO SCH ×2 (06:33→17:43)
[2020-09-23] MEDS: THIAMINE 100 MG TABLET PO SCH (08:12)
[2020-09-23] MEDS: FERROUS SULFATE 325 MG TABLET PO SCH ×2 (08:12→17:54)
[2020-09-23] MEDS: FOLIC ACID 1 MG TABLET PO SCH (08:12)
[2020-09-23] MEDS: VANCOMYCIN 125 MG CAPSULE PO SCH ×4 (08:12→20:25)
[2020-09-23] MEDS: carvediloL 12.5 MG TABLET PO SCH ×2 (08:12→20:25)
[2020-09-23] MEDS: BUDESONIDE 0.5 MG/2 ML NEB INH SCH ×2 (09:30→21:22)
[2020-09-23] MEDS: FORMOTEROL FUMARATE NEB 20 MCG/2 ML INH SCH ×2 (09:30→21:22)
[2020-09-23] MEDS: SACCHAROMYCES BOULARDII 250 MG CAPSULE PO SCH ×2 (10:40→17:44)
[2020-09-23] MEDS: SCOPOLAMINE PATCH TOP SCH (10:40)
[2020-09-23] MEDS: WARFARIN 1 MG TABLET PO SCH (13:06)
[2020-09-23] MEDS: IPRATROPIUM/ALBUTEROL 3 ML NEB INH PRN (15:59)
--- NOTE | 2020-09-23 19:16 | PROVIDER PROGRESS NOTE ---
Assessment/Plan - Problem List (1) C. difficile colitis Assessment/Plan: Continues to be on p.o. vancomycin. Overall his diarrhea is improving. Continue with IV fluids while diarrhea continues. Plan to complete a course of p.o. vancomycin (2) Chronic anemia Assessment/Plan: He needed a blood transfusion on 712 and hemoglobin has risen to 8. Follow CBC daily. (3) Heme positive stool Assessment/Plan: With a heme positive stool, concern for localizing source of the GI bleed with an EGD was discussed. The last hospital spoke to the general surgeon who stated that with his history of esophageal rupture, that general surgeon was not comfortable doing an EGD. I spoke to today's general surgeon regarding the same question and he was also not comfortable with the previous extensive esophageal surgery and recommended that the patient be transferred back to [facility] under GI or thoracic surgery for this evaluation. I called the [facility] sales training coordinator and he has been put into the queue for possible transfer but they are completely full and do not expect a bed to be open until Tuesday (today is ). Continue with empiric Protonix twice daily Tentative is that he has friable mucosa from the colitis of C. difficile. (4) Barretts esophagus Assessment/Plan: As per Hx, after esoph rupture in 04/2020 (5) Chronic atrial fibrillation Assessment/Plan: Is stable. He was on warfarin and this will now be stopped because of the documented heme positive stool and anemia severe enough to need transfusion (6) Chronic pain disorder Assessment/Plan: Stable, pain being controlled on his current meds and (7) Cognitive deficits Assessment/Plan: Stable and minimal impairment noted (8) Generalized weakness Assessment/Plan: He iss working with PT. He is motivated to get stronger, he told me, so that he does not have to stay at an SNF as long as he did over the Spring (9) Hypertension Assessment/Plan: BP stable on current meds and management (10) Loculated pleural effusion Assessment/Plan: Stable, asymptomatic (11) Type 2 diabetes mellitus with complication, with skilled nursing current use of insulin pump Assessment/Plan: Continue with carb controlled diet and his diabetic coverage (12) COPD without exacerbation Assessment/Plan: Stable without symptoms currently - Current Meds Current Meds: Current Medications Generic Name Dose Route Start Last Admin Trade Name Freq PRN Reason Stop Dose Admin Albuterol/Ipratropium 3 ml 09/19/20 22:26 09/23/20 15:59 Ipratropium/Albuterol 3 Ml Neb INH 3 ml Q4HR PRN Administration Wheezing Budesonide 0.5 mg 09/20/20 19:00 09/23/20 09:30 Budesonide 0.5 Mg/2 Ml Neb INH Not Given RTBID REBECCA Carvedilol 25 mg 09/19/20 23:00 09/23/20 08:12 Carvedilol 12.5 Mg Tablet PO 25 mg BID REBECCA Administration Ferrous Sulfate 325 mg 09/20/20 17:00 09/23/20 17:54 Ferrous Sulfate 325 Mg Tablet PO 325 mg BIDWM REBECCA Administration Folic Acid 1 mg 09/20/20 09:00 09/23/20 08:12 Folic Acid 1 Mg Tablet PO 1 mg DAILY REBECCA Administration Formoterol Fumarate 20 mcg 09/20/20 19:00 09/23/20 09:30 Formoterol Fumarate Neb 20 Mcg/2 Ml INH Not Given RTBID REBECCA Gabapentin 200 mg 09/20/20 06:00 09/23/20 13:05 Gabapentin 100 Mg Capsule PO 200 mg TID REBECCA Administration Morphine Sulfate 2 mg 09/19/20 18:44 09/22/20 00:46 Morphine 2 Mg/Ml Carpuject IVP 2 mg Q2HR PRN Administration Pain 8 to 10 Multi-Ingredient Ointment 1 applic 09/19/20 20:47 09/22/20 21:38 Zinc Oxide 20% Oint 30 Gm Tube TOP 1 applic PRN PRN Administration Skin Care Nortriptyline HCl 50 mg 09/20/20 21:00 09/22/20 21:37 Nortriptyline 25 Mg Capsule PO 50 mg QPM REBECCA Administration Ondansetron HCl 4 mg 09/19/20 18:44 09/22/20 00:46 Ondansetron 4 Mg/2 Ml Vial IVP 4 mg Q6HR PRN Administration Nausea / Vomiting Oxycodone HCl 5 mg 09/19/20 18:44 09/23/20 17:44 Oxycodone 5 Mg Tablet PO 5 mg Q4HR PRN Administration Pain 5 to 7 Pantoprazole Sodium 40 mg 09/20/20 16:00 09/23/20 17:43 Pantoprazole 40 Mg Tablet PO 40 mg BIDAC REBECCA Administration Saccharomyces Boulardii 500 mg 09/23/20 10:30 09/23/20 17:44 Saccharomyces Boulardii 250 Mg Capsule PO 500 mg BIDWM REBECCA Administration Scopolamine HBr 1 patch 09/23/20 10:00 09/23/20 10:40 Scopolamine Patch TOP 1 patch Q3D REBECCA Administration Sodium Chloride 10 ml 09/19/20 18:44 09/22/20 00:58 Sodium Chloride Flush 0.9% 10 Ml Syringe IVP 10 ml PRN PRN Administration NEEDED PER PROVIDER ORDERS Sodium Chloride 10 ml 09/20/20 01:00 09/23/20 17:50 Sodium Chloride Flush 0.9% 10 Ml Syringe IVP 10 ml 0100,0900,1700 REBECCA Administration Thiamine HCl 100 mg 09/20/20 09:00 09/23/20 08:12 Thiamine 100 Mg Tablet PO 100 mg DAILY REBECCA Administration Trazodone HCl 50 mg 09/20/20 21:00 09/22/20 21:37 Trazodone 50 Mg Tablet PO 50 mg QPM REBECCA Administration Vancomycin HCl 125 mg 09/19/20 21:00 09/23/20 17:44 Vancomycin 125 Mg Capsule PO 125 mg QID REBECCA Administration - Lab Result Fish Bone Diagrams: 09/26/20 08:22 09/26/20 08:22 - Additional Planning My Orders: My Active Orders 09/23/20 Consult [General Surgery Consult] [CONS] Routine 09/23/20 10:00 Scopolamine Patch [Transderm-Scop] 1 patch TOP Q3D 09/23/20 10:30 Saccharomyces Boulardii [Florastor] 500 mg PO BIDWM Subjective - Subjective Patient Reports: Feeling Better (Diarrhea slowing down, still stinks though) Objective Vital Signs: Vital Signs - 24 hr 09/22/20 09/22/20 09/22/20 21:00 21:13 21:15 Temperature Heart Rate 66 Heart Rate [ Brachial] Heart Rate [ Supine] Respiratory 20 Rate Blood Pressure [Activity] Blood Pressure [Right Brachial artery] Blood Pressure [Supine] O2 Saturation 87 L 94 09/22/20 09/23/20 09/23/20 21:37 02:27 02:37 Temperature 36.5 C Heart Rate Heart Rate [ 67 66 Brachial] Heart Rate [ Supine] Respiratory 18 Rate Blood Pressure [Activity] Blood Pressure 147/64 H 128/60 [Right Brachial artery] Blood Pressure [Supine] O2 Saturation 91 L 97 09/23/20 09/23/20 09/23/20 07:51 08:12 11:45 Temperature 36.6 C Heart Rate Heart Rate [ 59 L 62 Brachial] Heart Rate [ 70 Supine] Respiratory 16 Rate Blood Pressure 124/77 [Activity] Blood Pressure 136/63 H 142/65 H [Right Brachial artery] Blood Pressure 102/55 L [Supine] O2 Saturation 96 09/23/20 09/23/20 16:00 16:23 Temperature 36.7 C Heart Rate 62 Heart Rate [ 62 Brachial] Heart Rate [ Supine] Respiratory 16 20 Rate Blood Pressure [Activity] Blood Pressure 139/62 H [Right Brachial artery] Blood Pressure [Supine] O2 Saturation 96 Oxygen O2 Source Nasal cannula I&O (Last 24 Hrs): Intake and Output Totals x24h 09/21/20 09/22/20 09/23/20 23:59 23:59 23:59 Intake Total 3106 1375 460 Output Total 1150 1300 1000 Balance 1956 75 -540 General: Alert, Oriented x3 HEENT: Mucous membr. moist/pink Neck: Supple, No JVD Neuro: Alert, Non Focal, Other (Overall weak) Cardiovascular: Regular rate, No murmurs Respiratory: No respiratory distress, Breath sounds nml Abdomen: Soft (Distended, mildly tender, no rebound) Extremities: No edema - Results Results: Laboratory Results WBC 9.3 x10^3/uL (4.8-10.8) 09/23/20 05:48 RBC 2.85 10^6/uL (4.70-6.10) L 09/23/20 05:48 Hgb 8.1 g/dL (14.0-18.0) L 09/23/20 05:48 Hct 25.7 % (42.0-52.0) L 09/23/20 05:48 MCV 90.2 fL (80.0-94.0) 09/23/20 05:48 MCH 28.4 pg (27.0-31.0) 09/23/20 05:48 MCHC 31.5 g/dL (32.0-36.0) L 09/23/20 05:48 RDW 16.4 % (12.0-15.0) H 09/23/20 05:48 Plt Count 290 10^3/uL (130-450) 09/23/20 05:48 MPV 10.0 fL (7.4-11.4) 09/23/20 05:48 Neut # (Auto) 6.9 10^3/uL (1.5-6.6) H 09/23/20 05:48 Lymph # (Auto) 1.2 10^3/uL (1.5-3.5) L 09/23/20 05:48 [place] # (Auto) 0.6 10^3/uL (0.0-1.0) 09/23/20 05:48 Eos # (Auto) 0.4 10^3/uL (0.0-0.7) 09/23/20 05:48 Baso # (Auto) 0.1 10^3/uL (0.0-0.1) 09/23/20 05:48 Absolute Nucleated RBC 0.00 x10^3/uL 09/23/20 05:48 Nucleated RBC % 0.0 /100WBC 09/23/20 05:48 PT 19.3 secs (9.9-12.6) H 09/22/20 06:23 INR 1.8 (0.8-1.2) H 09/22/20 06:23 Sodium 137 mmol/L (135-145) 09/23/20 05:48 Potassium 3.8 mmol/L (3.5-5.0) 09/23/20 05:48 Chloride 104 mmol/L (101-111) 09/23/20 05:48 Carbon Dioxide 27 mmol/L (21-32) 09/23/20 05:48 Anion Gap 6.0 (6-13) 09/23/20 05:48 BUN 12 mg/dL (6-20) 09/23/20 05:48 Creatinine 0.9 mg/dL (0.6-1.2) 09/23/20 05:48 Estimated GFR (MDRD) 86 (>89) L 09/23/20 05:48 Glucose 125 mg/dL (70-100) H 09/23/20 05:48 Estimat Average Glucose 126 mg/dL (70-100) H 09/20/20 07:11 Hemoglobin A1c % 6.0 % (4.27-6.07) 09/20/20 07:11 Lactic Acid 1.7 mmol/L (0.5-2.2) 09/19/20 15:06 Calcium 8.1 mg/dL (8.5-10.3) L 09/23/20 05:48 Magnesium 1.7 mg/dL (1.7-2.8) 09/23/20 05:48 Iron 13 ug/dL (45-182) L 09/20/20 07:11 TIBC 164 ug/dL (250-450) L 09/20/20 07:11 % Saturation 8 % (20-50) L 09/20/20 07:11 Transferrin 117 mg/dL (180-329) L 09/20/20 07:11 Ferritin 344.2 ng/mL (23.9-336.2) H 09/20/20 07:11 Total Bilirubin 0.9 mg/dL (0.2-1.0) 09/19/20 15:06 AST 16 IU/L (10-42) 09/19/20 15:06 ALT 16 IU/L (10-60) 09/19/20 15:06 Alkaline Phosphatase 79 IU/L (42-121) 09/19/20 15:06 Total Protein 7.1 g/dL (6.7-8.2) 09/19/20 15:06 Albumin 3.4 g/dL (3.2-5.5) 09/19/20 15:06 Globulin 3.7 g/dL (2.1-4.2) 09/19/20 15:06 Albumin/Globulin Ratio 0.9 (1.0-2.2) L 09/19/20 15:06 Lipase 15 U/L (22-51) L 09/19/20 15:06 Urine Color DARK YELLOW 09/20/20 06:50 Urine Clarity CLEAR (CLEAR) 09/20/20 06:50 Urine pH 5.0 PH (5.0-7.5) 09/20/20 06:50 Ur Specific [place] 1.020 (1.002-1.030) 09/20/20 06:50 Urine Protein TRACE mg/dL (NEGATIVE) 09/20/20 06:50 Urine Glucose (UA) NEGATIVE mg/dL (NEGATIVE) 09/20/20 06:50 Urine Ketones NEGATIVE mg/dL (NEGATIVE) 09/20/20 06:50 Urine Occult Blood NEGATIVE (NEGATIVE) 09/20/20 06:50 Urine Nitrite NEGATIVE (NEGATIVE) 09/20/20 06:50 Urine Bilirubin NEGATIVE (NEGATIVE) 09/20/20 06:50 Urine Urobilinogen 0.2 (NORMAL) E.U./dL (NORMAL) 09/20/20 06:50 Ur Leukocyte Esterase NEGATIVE (NEGATIVE) 09/20/20 06:50 Ur Microscopic Review NOT INDICATED 09/20/20 06:50 Urine Culture Comments NOT INDICATED 09/20/20 06:50 Nasal Adenovirus (PCR) NOT DETECTED 09/19/20 18:20 Nasal B. parapertussis DNA (PCR) NOT DETECTED 09/19/20 18:20 Nasal Coronavir 229E PCR NOT DETECTED 09/19/20 18:20 Nasal Coronavir HKU1 PCR NOT DETECTED 09/19/20 18:20 Nasal Coronavir NL63 PCR NOT DETECTED 09/19/20 18:20 Nasal Coronavir OC43 PCR NOT DETECTED 09/19/20 18:20 Nasal Enterovir/Rhinovir PCR NOT DETECTED 09/19/20 18:20 Nasal Influenza B PCR NOT DETECTED 09/19/20 18:20 Nasal Influenza A PCR NOT DETECTED 09/19/20 18:20 Nasal Parainfluen 1 PCR NOT DETECTED 09/19/20 18:20 Nasal Parainfluen 2 PCR NOT DETECTED 09/19/20 18:20 Nasal Parainfluen 3 PCR NOT DETECTED 09/19/20 18:20 Nasal Parainfluen 4 PCR NOT DETECTED 09/19/20 18:20 Nasal RSV (PCR) NOT DETECTED 09/19/20 18:20 Nasal B.pertussis DNA PCR NOT DETECTED 09/19/20 18:20 Nasal C.pneumoniae (PCR) NOT DETECTED 09/19/20 18:20 Nacho Human Metapneumo PCR NOT DETECTED 09/19/20 18:20 Nasal M.pneumoniae (PCR) NOT DETECTED 09/19/20 18:20 Nasal SARS-CoV-2 (PCR) NOT DETECTED 09/19/20 18:20 Stl C. diff Tox B Gene POSITIVE (NEGATIVE) A* 09/19/20 15:04 Urine Opiates Screen NEGATIVE (NEGATIVE) 09/20/20 06:50 Ur Oxycodone Screen POSITIVE (NEGATIVE) H 09/20/20 06:50 Urine Methadone Screen NEGATIVE (NEGATIVE) 09/20/20 06:50 Ur Propoxyphene Screen NEGATIVE (NEGATIVE) 09/20/20 06:50 Ur Barbiturates Screen NEGATIVE (NEGATIVE) 09/20/20 06:50 Ur Tricyclics Screen NEGATIVE (NEGATIVE) 09/20/20 06:50 Ur Phencyclidine Scrn NEGATIVE (NEGATIVE) 09/20/20 06:50 Ur Amphetamine Screen NEGATIVE (NEGATIVE) 09/20/20 06:50 U Methamphetamines Scrn NEGATIVE (NEGATIVE) 09/20/20 06:50 U Benzodiazepines Scrn NEGATIVE (NEGATIVE) 09/20/20 06:50 Urine Cocaine Screen NEGATIVE (NEGATIVE) 09/20/20 06:50 U Cannabinoids Screen POSITIVE (NEGATIVE) H 09/20/20 06:50 Ref Lab Test Result REPORT 09/19/20 15:06 Blood Type A POSITIVE 09/21/20 07:50 Blood Type Recheck A POSITIVE 09/21/20 11:54 Antibody Screen NEGATIVE 09/21/20 07:50 Crossmatch IS Only See Detail 09/21/20 07:50 - Procedures Procedures: Procedures EXCISION OF DUODENUM, ENDO, DIAGN (03/10/16) EXCISION OF ESOPHAGOGASTRIC JUNCTION, ENDO, DIAGN (04/18/19) EXCISION OF LOWER ESOPHAGUS, ENDO, DIAGN (03/10/16) EXCISION OF SIGMOID COLON, ENDO (04/18/19) EXCISION OF SIGMOID COLON, ENDO, DIAGN (12/17/14) OTHER OPEN INCISIONAL HERNIA REPAIR WITH GRAFT OR PROSTHESIS (12/14/13)
[2020-09-23] MEDS: traZODone 50 MG TABLET PO SCH (20:25)
[2020-09-23] MEDS: NORTRIPTYLINE 25 MG CAPSULE PO SCH (20:25)
[2020-09-23] MEDS: MORPHINE 2 MG/ML CARPUJECT IVP PRN (21:52)
[2020-09-24] MEDS: oxyCODONE 5 MG TABLET PO PRN ×4 (01:10→19:05)
[2020-09-24] MEDS: SODIUM CHLORIDE FLUSH 0.9% 10 ML SYRINGE IVP SCH ×3 (01:10→16:37)
[2020-09-24 06:46] LABS: BASOPHILS # (AUTO) 0.1 10^3/uL (0.0-0.1); BASOPHILS % (AUTO) 0.5 %; EOSINOPHILS # (AUTO) 0.4 10^3/uL (0.0-0.7); EOSINOPHILS % (AUTO) 2.9 %; HCT - HEMATOCRIT 28.4 % (42.0-52.0); HGB - HEMOGLOBIN 8.9 g/dL (14.0-18.0); LYMPHOCYTES # (AUTO) 1.1 10^3/uL (1.5-3.5); LYMPHOCYTES % (AUTO) 8.8 %; MEAN CORPUSCULAR HGB CONC 31.3 g/dL (32.0-36.0); MEAN CORPUSCULAR VOLUME 89.3 fL (80.0-94.0); MEAN PLATELET VOLUME 10.1 fL (7.4-11.4); MONOCYTES # (AUTO) 0.7 10^3/uL (0.0-1.0); MONOCYTES % (AUTO) 5.5 %; NEUTROPHILS # (AUTO) 10.4 10^3/uL (1.5-6.6); NEUTROPHILS % (AUTO) 80.7 %; PLT - PLATELET COUNT 339 10^3/uL (130-450); RED BLOOD COUNT 3.18 10^6/uL (4.70-6.10); RED CELL DISTRIBUTION WIDTH 15.9 % (12.0-15.0); WHITE BLOOD COUNT 12.8 x10^3/uL (4.8-10.8)
[2020-09-24] MEDS: GABAPENTIN 100 MG CAPSULE PO SCH ×3 (06:50→22:41)
[2020-09-24] MEDS: PANTOPRAZOLE 40 MG TABLET PO SCH ×2 (06:50→16:37)
[2020-09-24 06:51] LABS: CALCIUM 8.7 mg/dL (8.5-10.3); CREATININE 0.7 mg/dL (0.6-1.2); MAGNESIUM 1.7 mg/dL (1.7-2.8); POTASSIUM 3.7 mmol/L (3.5-5.0)
[2020-09-24] MEDS: FORMOTEROL FUMARATE NEB 20 MCG/2 ML INH SCH ×2 (07:45→21:36)
[2020-09-24] MEDS: BUDESONIDE 0.5 MG/2 ML NEB INH SCH ×2 (07:45→21:36)
[2020-09-24] MEDS: IPRATROPIUM/ALBUTEROL 3 ML NEB INH PRN ×2 (07:45→15:45)
[2020-09-24] MEDS: SACCHAROMYCES BOULARDII 250 MG CAPSULE PO SCH ×2 (09:27→16:37)
[2020-09-24] MEDS: VANCOMYCIN 125 MG CAPSULE PO SCH ×4 (09:27→22:41)
[2020-09-24] MEDS: FOLIC ACID 1 MG TABLET PO SCH (09:27)
[2020-09-24] MEDS: carvediloL 12.5 MG TABLET PO SCH ×2 (09:27→22:41)
[2020-09-24] MEDS: THIAMINE 100 MG TABLET PO SCH (09:27)
[2020-09-24] MEDS: FERROUS SULFATE 325 MG TABLET PO SCH ×2 (09:28→16:37)
--- NOTE | 2020-09-24 18:23 | PROVIDER PROGRESS NOTE ---
Assessment/Plan - Problem List (1) C. difficile colitis Assessment/Plan: Continues to be on p.o. vancomycin. Overall his diarrhea is improving. Stop IV fluids as diarrhea subsides Plan to complete a course of p.o. vancomycin (2) Chronic anemia Assessment/Plan: He needed a blood transfusion on 09/22 and hemoglobin has risen to about 8, not dropping today Follow CBC daily. (3) Heme positive stool Assessment/Plan: With a heme positive stool, concern for localizing source of the GI bleed with an EGD was discussed. The last hospital spoke to the general surgeon who stated that with his history of esophageal rupture, that general surgeon was not comfortable doing an EGD. I spoke to today's general surgeon regarding the same question and he was also not comfortable with the previous extensive esophageal surgery and recommended that the patient be transferred back to [facility] under GI or thoracic surgery for this evaluation. I called the [facility] stroke coordinator yest and he has been put into the queue for possible transfer but they are completely full and do not expect a bed to be open until Tuesday (today is Tue). Continue with empiric Protonix twice daily Tentative is that he has friable mucosa from the colitis of C. difficile. (4) Barretts esophagus Assessment/Plan: S/P nito lara in 04/2020 (5) Chronic atrial fibrillation Assessment/Plan: Heart rate is stable. He was on warfarin and this was stopped because of the documented heme positive stool and anemia severe enough to need transfusion (6) Chronic pain disorder Assessment/Plan: Stable, pain being controlled on his current meds and (7) Cognitive deficits Assessment/Plan: Stable and minimal cognitive impairment noted (8) Generalized weakness Assessment/Plan: He iss working with PT. He is motivated to get stronger, he told me, so that he does not have to stay at an SNF as long as he did over the Spring (9) Hypertension Assessment/Plan: BP stable on current meds and management (10) Loculated pleural effusion Assessment/Plan: Stable, asymptomatic (11) Type 2 diabetes mellitus with complication, with jail current use of insulin pump Assessment/Plan: Continue with carb controlled diet and his diabetic coverage (12) COPD without exacerbation Assessment/Plan: Stable without symptoms currently - Current Meds Current Meds: Current Medications Generic Name Dose Route Start Last Admin Trade Name Freq PRN Reason Stop Dose Admin Albuterol/Ipratropium 3 ml 09/19/20 22:26 09/24/20 15:45 Ipratropium/Albuterol 3 Ml Neb INH 3 ml Q4HR PRN Administration Wheezing Budesonide 0.5 mg 09/20/20 19:00 09/24/20 07:45 Budesonide 0.5 Mg/2 Ml Neb INH 0.5 mg RTBID REBECCA Administration Carvedilol 25 mg 09/19/20 23:00 09/24/20 09:27 Carvedilol 12.5 Mg Tablet PO 25 mg BID REBECCA Administration Ferrous Sulfate 325 mg 09/20/20 17:00 09/24/20 16:37 Ferrous Sulfate 325 Mg Tablet PO 325 mg BIDWM REBECCA Administration Folic Acid 1 mg 09/20/20 09:00 09/24/20 09:27 Folic Acid 1 Mg Tablet PO 1 mg DAILY RBEECCA Administration Formoterol Fumarate 20 mcg 09/20/20 19:00 09/24/20 07:45 Formoterol Fumarate Neb 20 Mcg/2 Ml INH 20 mcg RTBID REBECCA Administration Gabapentin 200 mg 09/20/20 06:00 09/24/20 14:15 Gabapentin 100 Mg Capsule PO 200 mg TID REBECCA Administration Morphine Sulfate 2 mg 09/19/20 18:44 09/23/20 21:52 Morphine 2 Mg/Ml Carpuject IVP 2 mg Q2HR PRN Administration Pain 8 to 10 Multi-Ingredient Ointment 1 applic 09/19/20 20:47 09/22/20 21:38 Zinc Oxide 20% Oint 30 Gm Tube TOP 1 applic PRN PRN Administration Skin Care Nortriptyline HCl 50 mg 09/20/20 21:00 09/23/20 20:25 Nortriptyline 25 Mg Capsule PO 50 mg QPM REBECCA Administration Ondansetron HCl 4 mg 09/19/20 18:44 09/22/20 00:46 Ondansetron 4 Mg/2 Ml Vial IVP 4 mg Q6HR PRN Administration Nausea / Vomiting Oxycodone HCl 5 mg 09/19/20 18:44 09/24/20 14:23 Oxycodone 5 Mg Tablet PO 5 mg Q4HR PRN Administration Pain 5 to 7 Pantoprazole Sodium 40 mg 09/20/20 16:00 09/24/20 16:37 Pantoprazole 40 Mg Tablet PO 40 mg BIDAC REBECCA Administration Saccharomyces Boulardii 500 mg 09/23/20 10:30 09/24/20 16:37 Saccharomyces Boulardii 250 Mg Capsule PO 500 mg BIDWM REBECCA Administration Scopolamine HBr 1 patch 09/23/20 10:00 09/23/20 10:40 Scopolamine Patch TOP 1 patch Q3D REBECCA Administration Sodium Chloride 10 ml 09/19/20 18:44 09/22/20 00:58 Sodium Chloride Flush 0.9% 10 Ml Syringe IVP 10 ml PRN PRN Administration NEEDED PER PROVIDER ORDERS Sodium Chloride 10 ml 09/20/20 01:00 09/24/20 16:37 Sodium Chloride Flush 0.9% 10 Ml Syringe IVP 10 ml 0100,0900,1700 REBECCA Administration Thiamine HCl 100 mg 09/20/20 09:00 09/24/20 09:27 Thiamine 100 Mg Tablet PO 100 mg DAILY REBECCA Administration Trazodone HCl 50 mg 09/20/20 21:00 09/23/20 20:25 Trazodone 50 Mg Tablet PO 50 mg QPM REBECCA Administration Vancomycin HCl 125 mg 09/19/20 21:00 09/24/20 16:37 Vancomycin 125 Mg Capsule PO 125 mg QID REBECCA Administration - Lab Result Fish Bone Diagrams: 09/26/20 08:22 09/26/20 08:22 - Additional Planning My Orders: My Active Orders 09/24/20 11:22 Orthostatic [Vital Signs - Orthostatic] [RC] DAILY Subjective - Subjective Patient Reports: Feeling Better, Resting Comfortably (Much less diarrhea and he feels stronger today) Objective Vital Signs: Vital Signs - 24 hr 09/24/20 09/24/20 09/24/20 01:24 07:36 07:45 Temperature 36.7 C 36.6 C Heart Rate 67 Heart Rate [ 70 66 Brachial] Respiratory 18 16 18 Rate Blood Pressure 156/67 H 157/66 H [Right Brachial artery] O2 Saturation 96 96 09/24/20 09/24/20 15:45 16:24 Temperature 36.7 C Heart Rate 65 Heart Rate [ 65 Brachial] Respiratory 20 16 Rate Blood Pressure 147/69 H [Right Brachial artery] O2 Saturation 96 Oxygen O2 Source Nasal cannula I&O (Last 24 Hrs): Intake and Output Totals x24h 0709/23/20 09/24/20 23:59 23:59 23:59 Intake Total 1375 1030 460 Output Total 1300 1000 1650 Balance 75 30 -1190 General: Alert, Oriented x3 HEENT: Mucous membr. moist/pink Neck: Supple, No JVD Neuro: Alert, Non Focal Cardiovascular: No murmurs Respiratory: No respiratory distress Abdomen: Soft (Distended, gassy) Extremities: No edema - Results Results: Laboratory Results WBC 12.8 x10^3/uL (4.8-10.8) H 09/24/20 06:35 RBC 3.18 10^6/uL (4.70-6.10) L 09/24/20 06:35 Hgb 8.9 g/dL (14.0-18.0) L 09/24/20 06:35 Hct 28.4 % (42.0-52.0) L 09/24/20 06:35 MCV 89.3 fL (80.0-94.0) 09/24/20 06:35 MCH 28.0 pg (27.0-31.0) 09/24/20 06:35 MCHC 31.3 g/dL (32.0-36.0) L 09/24/20 06:35 RDW 15.9 % (12.0-15.0) H 09/24/20 06:35 Plt Count 339 10^3/uL (130-450) 09/24/20 06:35 MPV 10.1 fL (7.4-11.4) 09/24/20 06:35 Neut # (Auto) 10.4 10^3/uL (1.5-6.6) H 09/24/20 06:35 Lymph # (Auto) 1.1 10^3/uL (1.5-3.5) L 09/24/20 06:35 [place] # (Auto) 0.7 10^3/uL (0.0-1.0) 09/24/20 06:35 Eos # (Auto) 0.4 10^3/uL (0.0-0.7) 09/24/20 06:35 Baso # (Auto) 0.1 10^3/uL (0.0-0.1) 09/24/20 06:35 Absolute Nucleated RBC 0.00 x10^3/uL 09/24/20 06:35 Nucleated RBC % 0.0 /100WBC 09/24/20 06:35 PT 19.3 secs (9.9-12.6) H 09/22/20 06:23 INR 1.8 (0.8-1.2) H 09/22/20 06:23 Sodium 136 mmol/L (135-145) 09/24/20 06:35 Potassium 3.7 mmol/L (3.5-5.0) 09/24/20 06:35 Chloride 100 mmol/L (101-111) L 09/24/20 06:35 Carbon Dioxide 25 mmol/L (21-32) 09/24/20 06:35 Anion Gap 11.0 (6-13) 09/24/20 06:35 BUN 9 mg/dL (6-20) 09/24/20 06:35 Creatinine 0.7 mg/dL (0.6-1.2) 09/24/20 06:35 Estimated GFR (MDRD) 115 (>89) 09/24/20 06:35 Glucose 110 mg/dL (70-100) H 09/24/20 06:35 Estimat Average Glucose 126 mg/dL (70-100) H 09/20/20 07:11 Hemoglobin A1c % 6.0 % (4.27-6.07) 09/20/20 07:11 Lactic Acid 1.7 mmol/L (0.5-2.2) 09/19/20 15:06 Calcium 8.7 mg/dL (8.5-10.3) 09/24/20 06:35 Magnesium 1.7 mg/dL (1.7-2.8) 09/24/20 06:35 Iron 13 ug/dL (45-182) L 09/20/20 07:11 TIBC 164 ug/dL (250-450) L 09/20/20 07:11 % Saturation 8 % (20-50) L 09/20/20 07:11 Transferrin 117 mg/dL (180-329) L 09/20/20 07:11 Ferritin 344.2 ng/mL (23.9-336.2) H 09/20/20 07:11 Total Bilirubin 0.9 mg/dL (0.2-1.0) 09/19/20 15:06 AST 16 IU/L (10-42) 09/19/20 15:06 ALT 16 IU/L (10-60) 09/19/20 15:06 Alkaline Phosphatase 79 IU/L (42-121) 09/19/20 15:06 Total Protein 7.1 g/dL (6.7-8.2) 09/19/20 15:06 Albumin 3.4 g/dL (3.2-5.5) 09/19/20 15:06 Globulin 3.7 g/dL (2.1-4.2) 09/19/20 15:06 Albumin/Globulin Ratio 0.9 (1.0-2.2) L 09/19/20 15:06 Lipase 15 U/L (22-51) L 09/19/20 15:06 Urine Color DARK YELLOW 09/20/20 06:50 Urine Clarity CLEAR (CLEAR) 09/20/20 06:50 Urine pH 5.0 PH (5.0-7.5) 09/20/20 06:50 Ur Specific [place] 1.020 (1.002-1.030) 09/20/20 06:50 Urine Protein TRACE mg/dL (NEGATIVE) 09/20/20 06:50 Urine Glucose (UA) NEGATIVE mg/dL (NEGATIVE) 09/20/20 06:50 Urine Ketones NEGATIVE mg/dL (NEGATIVE) 09/20/20 06:50 Urine Occult Blood NEGATIVE (NEGATIVE) 09/20/20 06:50 Urine Nitrite NEGATIVE (NEGATIVE) 09/20/20 06:50 Urine Bilirubin NEGATIVE (NEGATIVE) 09/20/20 06:50 Urine Urobilinogen 0.2 (NORMAL) E.U./dL (NORMAL) 09/20/20 06:50 Ur Leukocyte Esterase NEGATIVE (NEGATIVE) 09/20/20 06:50 Ur Microscopic Review NOT INDICATED 09/20/20 06:50 Urine Culture Comments NOT INDICATED 09/20/20 06:50 Nasal Adenovirus (PCR) NOT DETECTED 09/19/20 18:20 Nasal B. parapertussis DNA (PCR) NOT DETECTED 09/19/20 18:20 Nasal Coronavir 229E PCR NOT DETECTED 09/19/20 18:20 Nasal Coronavir HKU1 PCR NOT DETECTED 09/19/20 18:20 Nasal Coronavir NL63 PCR NOT DETECTED 09/19/20 18:20 Nasal Coronavir OC43 PCR NOT DETECTED 09/19/20 18:20 Nasal Enterovir/Rhinovir PCR NOT DETECTED 09/19/20 18:20 Nasal Influenza B PCR NOT DETECTED 09/19/20 18:20 Nasal Influenza A PCR NOT DETECTED 09/19/20 18:20 Nasal Parainfluen 1 PCR NOT DETECTED 09/19/20 18:20 Nasal Parainfluen 2 PCR NOT DETECTED 09/19/20 18:20 Nasal Parainfluen 3 PCR NOT DETECTED 09/19/20 18:20 Nasal Parainfluen 4 PCR NOT DETECTED 09/19/20 18:20 Nasal RSV (PCR) NOT DETECTED 09/19/20 18:20 Nasal B.pertussis DNA PCR NOT DETECTED 09/19/20 18:20 Nasal C.pneumoniae (PCR) NOT DETECTED 09/19/20 18:20 Nacho Human Metapneumo PCR NOT DETECTED 09/19/20 18:20 Nasal M.pneumoniae (PCR) NOT DETECTED 09/19/20 18:20 Nasal SARS-CoV-2 (PCR) NOT DETECTED 09/19/20 18:20 Stl C. diff Tox B Gene POSITIVE (NEGATIVE) A* 09/19/20 15:04 Urine Opiates Screen NEGATIVE (NEGATIVE) 09/20/20 06:50 Ur Oxycodone Screen POSITIVE (NEGATIVE) H 09/20/20 06:50 Urine Methadone Screen NEGATIVE (NEGATIVE) 09/20/20 06:50 Ur Propoxyphene Screen NEGATIVE (NEGATIVE) 09/20/20 06:50 Ur Barbiturates Screen NEGATIVE (NEGATIVE) 09/20/20 06:50 Ur Tricyclics Screen NEGATIVE (NEGATIVE) 09/20/20 06:50 Ur Phencyclidine Scrn NEGATIVE (NEGATIVE) 09/20/20 06:50 Ur Amphetamine Screen NEGATIVE (NEGATIVE) 09/20/20 06:50 U Methamphetamines Scrn NEGATIVE (NEGATIVE) 09/20/20 06:50 U Benzodiazepines Scrn NEGATIVE (NEGATIVE) 09/20/20 06:50 Urine Cocaine Screen NEGATIVE (NEGATIVE) 09/20/20 06:50 U Cannabinoids Screen POSITIVE (NEGATIVE) H 09/20/20 06:50 Ref Lab Test Result REPORT 09/19/20 15:06 Blood Type A POSITIVE 09/21/20 07:50 Blood Type Recheck A POSITIVE 09/21/20 11:54 Antibody Screen NEGATIVE 09/21/20 07:50 Crossmatch IS Only See Detail 09/21/20 07:50 - Procedures Procedures: Procedures EXCISION OF DUODENUM, ENDO, DIAGN (03/10/16) EXCISION OF ESOPHAGOGASTRIC JUNCTION, ENDO, DIAGN (04/18/19) EXCISION OF LOWER ESOPHAGUS, ENDO, DIAGN (03/10/16) EXCISION OF SIGMOID COLON, ENDO (04/18/19) EXCISION OF SIGMOID COLON, ENDO, DIAGN (12/17/14) OTHER OPEN INCISIONAL HERNIA REPAIR WITH GRAFT OR PROSTHESIS (12/14/13)
[2020-09-24] MEDS: NORTRIPTYLINE 25 MG CAPSULE PO SCH (22:41)
[2020-09-24] MEDS: traZODone 50 MG TABLET PO SCH (22:41)
[2020-09-25] MEDS: oxyCODONE 5 MG TABLET PO PRN ×3 (00:04→21:23)
[2020-09-25] MEDS: ACETAMINOPHEN 325 MG TABLET PO PRN ×2 (00:04→10:35)
[2020-09-25] MEDS: SODIUM CHLORIDE FLUSH 0.9% 10 ML SYRINGE IVP SCH ×3 (00:06→16:20)
[2020-09-25] MEDS: PANTOPRAZOLE 40 MG TABLET PO SCH ×2 (07:01→16:20)
[2020-09-25] MEDS: GABAPENTIN 100 MG CAPSULE PO SCH ×3 (07:01→21:12)
[2020-09-25] MEDS: BUDESONIDE 0.5 MG/2 ML NEB INH SCH ×2 (07:57→20:25)
[2020-09-25] MEDS: IPRATROPIUM/ALBUTEROL 3 ML NEB INH PRN (07:57)
[2020-09-25] MEDS: FORMOTEROL FUMARATE NEB 20 MCG/2 ML INH SCH ×2 (07:58→20:26)
[2020-09-25 09:29] LABS: HCT - HEMATOCRIT 30.1 % (42.0-52.0); HGB - HEMOGLOBIN 9.5 g/dL (14.0-18.0)
[2020-09-25] MEDS: FERROUS SULFATE 325 MG TABLET PO SCH ×2 (10:17→16:20)
[2020-09-25] MEDS: SACCHAROMYCES BOULARDII 250 MG CAPSULE PO SCH ×2 (10:17→16:19)
[2020-09-25] MEDS: THIAMINE 100 MG TABLET PO SCH (10:18)
[2020-09-25] MEDS: FOLIC ACID 1 MG TABLET PO SCH (10:18)
[2020-09-25] MEDS: VANCOMYCIN 125 MG CAPSULE PO SCH ×4 (10:18→21:12)
[2020-09-25] MEDS: carvediloL 12.5 MG TABLET PO SCH ×2 (10:22→21:12)
[2020-09-25] MEDS ORDERED: diazePAM INJ 5 MG/ML SYRINGE IVP PRN (12:41)
[2020-09-25] MEDS: ONDANSETRON 4 MG/2 ML VIAL IVP PRN (12:42)
[2020-09-25 13:19] LABS: B. PARAPERTUSSIS- RESP PCR PAN NOT DETECTED; B. PERTUSSIS- RESP PCR PANEL NOT DETECTED; C. PNEUMONIAE- RESP PCR PANEL NOT DETECTED; CORONAVIRUS 229E-RESP PCR NOT DETECTED; CORONAVIRUS HKU1-RESP PCR NOT DETECTED; CORONAVIRUS NL63-RESP PCR NOT DETECTED; CORONAVIRUS OC43-RESP PCR NOT DETECTED; HUMAN METAPNEUMOVIRUS NOT DETECTED; INFLUENZA A- RESP PCR PANEL NOT DETECTED; INFLUENZA B - RESP PCR PANEL NOT DETECTED; M. PNEUMONIAE- RESP PCR PANEL NOT DETECTED; PARAINFLUENZA VIRUS 1 NOT DETECTED; PARAINFLUENZA VIRUS 2 NOT DETECTED; PARAINFLUENZA VIRUS 3 NOT DETECTED; PARAINFLUENZA VIRUS 4 NOT DETECTED; RHINOVIRUS/ENTEROVIRUS NOT DETECTED; RSV- RESP PCR PANEL NOT DETECTED; SARS-CoV-2 -RESP PCR PANEL NOT DETECTED
[2020-09-25 14:03] LABS: ALBUMIN/GLOBULIN RATIO 0.9 (1.0-2.2); ALKALINE PHOSPHATASE 66 IU/L (42-121); ALT ALANINE AMINOTRANSFERASE 10 IU/L (10-60); AST ASPARTATE AMINOTRANSFERASE < 10 IU/L (10-42); BILIRUBIN,TOTAL 0.7 mg/dL (0.2-1.0); BUN - BLOOD UREA NITROGEN 9 mg/dL (6-20); CALCIUM 8.6 mg/dL (8.5-10.3); CARBON DIOXIDE - CO2 28 mmol/L (21-32); CHLORIDE 99 mmol/L (101-111); GFR - MDRD 76 (>89); GLUCOSE 112 mg/dL (70-100); POTASSIUM 4.1 mmol/L (3.5-5.0); SODIUM 138 mmol/L (135-145); TOTAL PROTEIN 6.4 g/dL (6.7-8.2)
--- NOTE | 2020-09-25 16:42 | PROVIDER PROGRESS NOTE ---
Assessment/Plan - Problem List (1) C. difficile colitis Assessment/Plan: Continues to be on p.o. vancomycin. Overall his diarrhea is much improved Stop IV fluids as diarrhea subsides Plan to complete a course of p.o. vancomycin (11) Type 2 diabetes mellitus with complication, with fpc current use of insulin pump Assessment/Plan: Continue with carb controlled diet and his diabetic coverage (12) COPD without exacerbation Assessment/Plan: Stable without symptoms currently (2) Chronic anemia Assessment/Plan: He needed a blood transfusion on 09/22 and hemoglobin has risen to about 8, not dropping for 3 days Follow CBC daily. (3) Heme positive stool Assessment/Plan: With a heme positive stool, concern for localizing source of the GI bleed with an EGD was discussed. The last hospitalist spoke to the general surgeon who stated that with his history of esophageal rupture, that general surgeon was not comfortable doing an EGD. I spoke to another general surgeon regarding the same question and he was also not comfortable with the previous extensive esophageal surgery and recommended that the patient be transferred back to [facility] under GI or thoracic surgery for this evaluation. I called the [facility] manager transfer previously and he has been put into the queue for possible transfer but they are completely full and do not expect a bed to be open until Tuesday (today is ). Continue with empiric Protonix twice daily Tentative is that he has friable mucosa from the colitis of C. difficile. (4) Chronic atrial fibrillation Assessment/Plan: Heart rate is stable. He was on warfarin but Warfarin was stopped because of the documented heme positive stool and anemia severe enough to need transfusion (5) Chronic pain disorder Assessment/Plan: Stable, pain being controlled on his current meds and managment (6) Cognitive deficits Assessment/Plan: Stable and very minimal cognitive impairment noted (7) Generalized weakness Assessment/Plan: He is working with PT. He is motivated to get stronger, he told me, so that he does not have to stay at an SNF as long as he did over the Spring (8) Hypertension Assessment/Plan: BP stable on current meds and management (9) Type 2 diabetes mellitus with complication, with salvage determiner current use of insulin pump Assessment/Plan: Stable on diet and meds (10) COPD without exacerbation Assessment/Plan: Stable currently - Current Meds Current Meds: Current Medications Generic Name Dose Route Start Last Admin Trade Name Freq PRN Reason Stop Dose Admin Acetaminophen 650 mg 09/19/20 18:44 09/25/20 10:35 Acetaminophen 325 Mg Tablet PO 650 mg Q4HR PRN Administration Pain 1 to 4 Albuterol/Ipratropium 3 ml 09/19/20 22:26 09/25/20 07:57 Ipratropium/Albuterol 3 Ml Neb INH 3 ml Q4HR PRN Administration Wheezing Budesonide 0.5 mg 09/20/20 19:00 09/25/20 07:57 Budesonide 0.5 Mg/2 Ml Neb INH 0.5 mg RTBID REBECCA Administration Carvedilol 25 mg 09/19/20 23:00 09/25/20 10:22 Carvedilol 12.5 Mg Tablet PO 25 mg BID REBECCA Administration Ferrous Sulfate 325 mg 09/20/20 17:00 09/25/20 16:20 Ferrous Sulfate 325 Mg Tablet PO 325 mg BIDWM REBECCA Administration Folic Acid 1 mg 09/20/20 09:00 09/25/20 10:18 Folic Acid 1 Mg Tablet PO 1 mg DAILY REBECCA Administration Formoterol Fumarate 20 mcg 09/20/20 19:00 09/25/20 07:58 Formoterol Fumarate Neb 20 Mcg/2 Ml INH 20 mcg RTBID REBECCA Administration Gabapentin 200 mg 09/20/20 06:00 09/25/20 12:42 Gabapentin 100 Mg Capsule PO 200 mg TID REBECCA Administration Morphine Sulfate 2 mg 09/19/20 18:44 09/23/20 21:52 Morphine 2 Mg/Ml Carpuject IVP 2 mg Q2HR PRN Administration Pain 8 to 10 Multi-Ingredient Ointment 1 applic 09/19/20 20:47 09/22/20 21:38 Zinc Oxide 20% Oint 30 Gm Tube TOP 1 applic PRN PRN Administration Skin Care Nortriptyline HCl 50 mg 09/20/20 21:00 09/24/20 22:41 Nortriptyline 25 Mg Capsule PO 50 mg QPM REBECCA Administration Ondansetron HCl 4 mg 09/19/20 18:44 09/25/20 12:42 Ondansetron 4 Mg/2 Ml Vial IVP 4 mg Q6HR PRN Administration Nausea / Vomiting Oxycodone HCl 5 mg 09/19/20 18:44 09/25/20 10:34 Oxycodone 5 Mg Tablet PO 5 mg Q4HR PRN Administration Pain 5 to 7 Pantoprazole Sodium 40 mg 09/20/20 16:00 09/25/20 16:20 Pantoprazole 40 Mg Tablet PO 40 mg BIDAC REBECCA Administration Saccharomyces Boulardii 500 mg 09/23/20 10:30 09/25/20 16:19 Saccharomyces Boulardii 250 Mg Capsule PO 500 mg BIDWM REBECCA Administration Scopolamine HBr 1 patch 09/23/20 10:00 09/23/20 10:40 Scopolamine Patch TOP 1 patch Q3D REBECCA Administration Sodium Chloride 10 ml 09/19/20 18:44 09/22/20 00:58 Sodium Chloride Flush 0.9% 10 Ml Syringe IVP 10 ml PRN PRN Administration NEEDED PER PROVIDER ORDERS Sodium Chloride 10 ml 09/20/20 01:00 09/25/20 16:20 Sodium Chloride Flush 0.9% 10 Ml Syringe IVP 10 ml 0100,0900,1700 REBECCA Administration Thiamine HCl 100 mg 09/20/20 09:00 09/25/20 10:18 Thiamine 100 Mg Tablet PO 100 mg DAILY REBECCA Administration Trazodone HCl 50 mg 09/20/20 21:00 09/24/20 22:41 Trazodone 50 Mg Tablet PO 50 mg QPM REBECCA Administration Vancomycin HCl 125 mg 09/19/20 21:00 09/25/20 16:20 Vancomycin 125 Mg Capsule PO 125 mg QID REBECCA Administration - Lab Result Fish Bone Diagrams: 09/26/20 08:22 09/26/20 08:22 - Additional Planning My Orders: My Active Orders 09/25/20 12:41 [id number] INJ [Valium Inj] 5 mg IVP Q30M PRN 09/25/20 12:42 Social Work Consult [CONS] Routine 09/25/20 Dinner DIET [Gluten Free Diet] [DIET] Subjective - Subjective Patient Reports: Feeling Better (No BM for past 2 days) Nursing Reports: Other (Progressing with PT last 2 days) Objective Vital Signs: Vital Signs - 24 hr 09/25/20 09/25/20 09/25/20 00:15 07:59 08:00 Temperature 36.6 C 36.6 C Heart Rate 64 Heart Rate [ 65 66 Brachial] Respiratory 18 16 18 Rate Blood Pressure 158/70 H 166/78 H [Right Brachial artery] O2 Saturation 95 96 09/25/20 09/25/20 16:23 16:28 Temperature 36.6 C 36.6 C Heart Rate 76 Heart Rate [ 76 Brachial] Respiratory 20 18 Rate Blood Pressure 145/73 H [Right Brachial artery] O2 Saturation 92 96 Oxygen O2 Source Nasal cannula I&O (Last 24 Hrs): Intake and Output Totals x24h 09/23/20 09/24/20 09/25/20 23:59 23:59 23:59 Intake Total 1030 910 820 Output Total 1000 2000 1130 Balance 30 -1090 -310 General: Alert, Oriented x3 HEENT: EOMI, Mucous membr. moist/pink Neck: Supple, No JVD Neuro: Alert, Non Focal Cardiovascular: No murmurs Respiratory: No respiratory distress Abdomen: Soft (Distended, less achy and gassy) Extremities: No edema - Results Results: Laboratory Results WBC 12.8 x10^3/uL (4.8-10.8) H 09/24/20 06:35 RBC 3.18 10^6/uL (4.70-6.10) L 09/24/20 06:35 Hgb 9.5 g/dL (14.0-18.0) L 09/25/20 09:19 Hct 30.1 % (42.0-52.0) L 09/25/20 09:19 MCV 89.3 fL (80.0-94.0) 09/24/20 06:35 MCH 28.0 pg (27.0-31.0) 09/24/20 06:35 MCHC 31.3 g/dL (32.0-36.0) L 09/24/20 06:35 RDW 15.9 % (12.0-15.0) H 09/24/20 06:35 Plt Count 339 10^3/uL (130-450) 09/24/20 06:35 MPV 10.1 fL (7.4-11.4) 09/24/20 06:35 Neut # (Auto) 10.4 10^3/uL (1.5-6.6) H 09/24/20 06:35 Lymph # (Auto) 1.1 10^3/uL (1.5-3.5) L 09/24/20 06:35 [place] # (Auto) 0.7 10^3/uL (0.0-1.0) 09/24/20 06:35 Eos # (Auto) 0.4 10^3/uL (0.0-0.7) 09/24/20 06:35 Baso # (Auto) 0.1 10^3/uL (0.0-0.1) 09/24/20 06:35 Absolute Nucleated RBC 0.00 x10^3/uL 09/24/20 06:35 Nucleated RBC % 0.0 /100WBC 09/24/20 06:35 PT 19.3 secs (9.9-12.6) H 09/22/20 06:23 INR 1.8 (0.8-1.2) H 09/22/20 06:23 Sodium 138 mmol/L (135-145) 09/25/20 13:38 Potassium 4.1 mmol/L (3.5-5.0) 09/25/20 13:38 Chloride 99 mmol/L (101-111) L 09/25/20 13:38 Carbon Dioxide 28 mmol/L (21-32) 09/25/20 13:38 Anion Gap 11.0 (6-13) 09/25/20 13:38 BUN 9 mg/dL (6-20) 09/25/20 13:38 Creatinine 1.0 mg/dL (0.6-1.2) 09/25/20 13:38 Estimated GFR (MDRD) 76 (>89) L 09/25/20 13:38 Glucose 112 mg/dL (70-100) H 09/25/20 13:38 Estimat Average Glucose 126 mg/dL (70-100) H 09/20/20 07:11 Hemoglobin A1c % 6.0 % (4.27-6.07) 09/20/20 07:11 Lactic Acid 1.7 mmol/L (0.5-2.2) 09/19/20 15:06 Calcium 8.6 mg/dL (8.5-10.3) 09/25/20 13:38 Magnesium 1.7 mg/dL (1.7-2.8) 09/24/20 06:35 Iron 13 ug/dL (45-182) L 09/20/20 07:11 TIBC 164 ug/dL (250-450) L 09/20/20 07:11 % Saturation 8 % (20-50) L 09/20/20 07:11 Transferrin 117 mg/dL (180-329) L 09/20/20 07:11 Ferritin 344.2 ng/mL (23.9-336.2) H 09/20/20 07:11 Total Bilirubin 0.7 mg/dL (0.2-1.0) 09/25/20 13:38 AST < 10 IU/L (10-42) L 09/25/20 13:38 ALT 10 IU/L (10-60) 09/25/20 13:38 Alkaline Phosphatase 66 IU/L (42-121) 09/25/20 13:38 Total Protein 6.4 g/dL (6.7-8.2) L 09/25/20 13:38 Albumin 3.0 g/dL (3.2-5.5) L 09/25/20 13:38 Globulin 3.4 g/dL (2.1-4.2) 09/25/20 13:38 Albumin/Globulin Ratio 0.9 (1.0-2.2) L 09/25/20 13:38 Lipase 15 U/L (22-51) L 09/19/20 15:06 Urine Color DARK YELLOW 09/20/20 06:50 Urine Clarity CLEAR (CLEAR) 09/20/20 06:50 Urine pH 5.0 PH (5.0-7.5) 09/20/20 06:50 Ur Specific [place] 1.020 (1.002-1.030) 09/20/20 06:50 Urine Protein TRACE mg/dL (NEGATIVE) 09/20/20 06:50 Urine Glucose (UA) NEGATIVE mg/dL (NEGATIVE) 09/20/20 06:50 Urine Ketones NEGATIVE mg/dL (NEGATIVE) 09/20/20 06:50 Urine Occult Blood NEGATIVE (NEGATIVE) 09/20/20 06:50 Urine Nitrite NEGATIVE (NEGATIVE) 09/20/20 06:50 Urine Bilirubin NEGATIVE (NEGATIVE) 09/20/20 06:50 Urine Urobilinogen 0.2 (NORMAL) E.U./dL (NORMAL) 09/20/20 06:50 Ur Leukocyte Esterase NEGATIVE (NEGATIVE) 09/20/20 06:50 Ur Microscopic Review NOT INDICATED 09/20/20 06:50 Urine Culture Comments NOT INDICATED 09/20/20 06:50 Nasal Adenovirus (PCR) NOT DETECTED 09/25/20 12:25 Nasal B. parapertussis DNA (PCR) NOT DETECTED 09/25/20 12:25 Nasal Coronavir 229E PCR NOT DETECTED 09/25/20 12:25 Nasal Coronavir HKU1 PCR NOT DETECTED 09/25/20 12:25 Nasal Coronavir NL63 PCR NOT DETECTED 09/25/20 12:25 Nasal Coronavir OC43 PCR NOT DETECTED 09/25/20 12:25 Nasal Enterovir/Rhinovir PCR NOT DETECTED 09/25/20 12:25 Nasal Influenza B PCR NOT DETECTED 09/25/20 12:25 Nasal Influenza A PCR NOT DETECTED 09/25/20 12:25 Nasal Parainfluen 1 PCR NOT DETECTED 09/25/20 12:25 Nasal Parainfluen 2 PCR NOT DETECTED 09/25/20 12:25 Nasal Parainfluen 3 PCR NOT DETECTED 09/25/20 12:25 Nasal Parainfluen 4 PCR NOT DETECTED 09/25/20 12:25 Nasal RSV (PCR) NOT DETECTED 09/25/20 12:25 Nasal B.pertussis DNA PCR NOT DETECTED 09/25/20 12:25 Nasal C.pneumoniae (PCR) NOT DETECTED 09/25/20 12:25 Ancho Human Metapneumo PCR NOT DETECTED 09/25/20 12:25 Nasal M.pneumoniae (PCR) NOT DETECTED 09/25/20 12:25 Nasal SARS-CoV-2 (PCR) NOT DETECTED 09/25/20 12:25 Stl C. diff Tox B Gene POSITIVE (NEGATIVE) A* 09/19/20 15:04 Urine Opiates Screen NEGATIVE (NEGATIVE) 09/20/20 06:50 Ur Oxycodone Screen POSITIVE (NEGATIVE) H 09/20/20 06:50 Urine Methadone Screen NEGATIVE (NEGATIVE) 09/20/20 06:50 Ur Propoxyphene Screen NEGATIVE (NEGATIVE) 09/20/20 06:50 Ur Barbiturates Screen NEGATIVE (NEGATIVE) 09/20/20 06:50 Ur Tricyclics Screen NEGATIVE (NEGATIVE) 09/20/20 06:50 Ur Phencyclidine Scrn NEGATIVE (NEGATIVE) 09/20/20 06:50 Ur Amphetamine Screen NEGATIVE (NEGATIVE) 09/20/20 06:50 U Methamphetamines Scrn NEGATIVE (NEGATIVE) 09/20/20 06:50 U Benzodiazepines Scrn NEGATIVE (NEGATIVE) 09/20/20 06:50 Urine Cocaine Screen NEGATIVE (NEGATIVE) 09/20/20 06:50 U Cannabinoids Screen POSITIVE (NEGATIVE) H 09/20/20 06:50 Ref Lab Test Result REPORT 09/19/20 15:06 Blood Type A POSITIVE 09/21/20 07:50 Blood Type Recheck A POSITIVE 09/21/20 11:54 Antibody Screen NEGATIVE 09/21/20 07:50 Crossmatch IS Only See Detail 09/21/20 07:50 - Procedures Procedures: Procedures EXCISION OF DUODENUM, ENDO, DIAGN (03/10/16) EXCISION OF ESOPHAGOGASTRIC JUNCTION, ENDO, DIAGN (04/18/19) EXCISION OF LOWER ESOPHAGUS, ENDO, DIAGN (03/10/16) EXCISION OF SIGMOID COLON, ENDO (04/18/19) EXCISION OF SIGMOID COLON, ENDO, DIAGN (12/17/14) OTHER OPEN INCISIONAL HERNIA REPAIR WITH GRAFT OR PROSTHESIS (12/14/13)
[2020-09-25] MEDS ORDERED: MIN OIL/DIMETHICON/COCONUT OIL 92 GM TUBE TOP PRN (20:52)
[2020-09-25] MEDS: traZODone 50 MG TABLET PO SCH (21:12)
[2020-09-25] MEDS: NORTRIPTYLINE 25 MG CAPSULE PO SCH (21:12)
[2020-09-25] MEDS: ZINC OXIDE 20% OINT 30 GM TUBE TOP PRN (21:24)
[2020-09-26] MEDS: SODIUM CHLORIDE FLUSH 0.9% 10 ML SYRINGE IVP SCH ×3 (00:23→17:26)
[2020-09-26] MEDS: PANTOPRAZOLE 40 MG TABLET PO SCH ×2 (06:34→16:03)
[2020-09-26] MEDS: GABAPENTIN 100 MG CAPSULE PO SCH ×3 (06:35→21:38)
[2020-09-26 08:29] LABS: BASOPHILS # (AUTO) 0.1 10^3/uL (0.0-0.1); BASOPHILS % (AUTO) 0.6 %; EOSINOPHILS # (AUTO) 0.4 10^3/uL (0.0-0.7); EOSINOPHILS % (AUTO) 3.6 %; HCT - HEMATOCRIT 29.2 % (42.0-52.0); HGB - HEMOGLOBIN 9.2 g/dL (14.0-18.0); MEAN CORPUSCULAR HGB CONC 31.5 g/dL (32.0-36.0); MEAN PLATELET VOLUME 9.3 fL (7.4-11.4); MONOCYTES # (AUTO) 0.7 10^3/uL (0.0-1.0); MONOCYTES % (AUTO) 6.1 %; NEUTROPHILS # (AUTO) 9.6 10^3/uL (1.5-6.6); NEUTROPHILS % (AUTO) 79.9 %; PLT - PLATELET COUNT 385 10^3/uL (130-450); RED BLOOD COUNT 3.28 10^6/uL (4.70-6.10); RED CELL DISTRIBUTION WIDTH 16.4 % (12.0-15.0)
[2020-09-26 08:41] LABS: CALCIUM 8.4 mg/dL (8.5-10.3); MAGNESIUM 1.6 mg/dL (1.7-2.8); PHOSPHORUS 4.3 mg/dL (2.5-4.6)
[2020-09-26] MEDS: SACCHAROMYCES BOULARDII 250 MG CAPSULE PO SCH ×2 (10:44→17:26)
[2020-09-26] MEDS: FERROUS SULFATE 325 MG TABLET PO SCH ×2 (10:47→17:26)
[2020-09-26] MEDS: carvediloL 12.5 MG TABLET PO SCH ×2 (10:47→21:38)
[2020-09-26] MEDS: VANCOMYCIN 125 MG CAPSULE PO SCH ×4 (10:47→21:38)
[2020-09-26] MEDS: FOLIC ACID 1 MG TABLET PO SCH (10:48)
[2020-09-26] MEDS: THIAMINE 100 MG TABLET PO SCH (10:48)
[2020-09-26] MEDS: oxyCODONE 5 MG TABLET PO PRN (11:03)
[2020-09-26] MEDS: SCOPOLAMINE PATCH TOP SCH (11:04)
[2020-09-26] MEDS: SODIUM CHLORIDE FLUSH 0.9% 10 ML SYRINGE IVP PRN (13:19)
[2020-09-26] MEDS: MORPHINE 2 MG/ML CARPUJECT IVP PRN (13:19)
--- NOTE | 2020-09-26 15:25 | PROVIDER PROGRESS NOTE ---
Assessment/Plan - Problem List (1) C. difficile colitis Assessment/Plan: He has not had any diarrhea and no charted BMs for 3 days. His Hgb has been stable for 4 days. [facility] called back with GI on the phone, for a poss transfer and I discussed the case. The GI specialist advised that no EGD is needed if he is not having melena or coffee ground emesis, since the Hgb has been stable for 4 days. Will cont with po Vanco to coplete the course of treatment. (2) Chronic anemia Assessment/Plan: The Hgb has been stable for 4 days. Will order a stool guaic again to monitor the for any blood in stool. (3) Heme positive stool Assessment/Plan: As above in #1 and #2 The GI specialist from [facility] recommended PPI bid (which he has been on empirically) and oral Sucralfate liquid, which I will add. No transfer was needed for endoscopy, per the GI specialist. If he re-bleeds, GI said that Thoracic surgery would need to be contacted for transfer and EGD, not GI. (4) Chronic atrial fibrillation Assessment/Plan: HR is under control The Warfarin was stopped due to GO blood loss anemia. (5) Chronic pain disorder Assessment/Plan: Continue pain meds as needed (6) Cognitive deficits Assessment/Plan: Stable (7) Generalized weakness Assessment/Plan: he is progressing nicely with PT. He will likely not need a SNF for rehab, per PT and OT. (8) Hypertension Assessment/Plan: Stable on current meds and management (9) Type 2 diabetes mellitus with complication, with residential current use of insulin pump Assessment/Plan: Continue cc diet and Insulin (10) COPD without exacerbation Assessment/Plan: Stable (11) Loculated pleural effusion Assessment/Plan: Stable, asx - Current Meds Current Meds: Current Medications Generic Name Dose Route Start Last Admin Trade Name Freq PRN Reason Stop Dose Admin Acetaminophen 650 mg 09/19/20 18:44 09/25/20 10:35 Acetaminophen 325 Mg Tablet PO 650 mg Q4HR PRN Administration Pain 1 to 4 Albuterol/Ipratropium 3 ml 09/19/20 22:26 09/25/20 07:57 Ipratropium/Albuterol 3 Ml Neb INH 3 ml Q4HR PRN Administration Wheezing Budesonide 0.5 mg 09/20/20 19:00 09/25/20 20:25 Budesonide 0.5 Mg/2 Ml Neb INH Not Given RTBID REBECCA Carvedilol 25 mg 09/19/20 23:00 09/26/20 10:47 Carvedilol 12.5 Mg Tablet PO 25 mg BID REBECCA Administration Ferrous Sulfate 325 mg 09/20/20 17:00 09/26/20 10:47 Ferrous Sulfate 325 Mg Tablet PO 325 mg BIDWM REBECCA Administration Folic Acid 1 mg 09/20/20 09:00 09/26/20 10:48 Folic Acid 1 Mg Tablet PO 1 mg DAILY REBECCA Administration Formoterol Fumarate 20 mcg 09/20/20 19:00 09/25/20 20:26 Formoterol Fumarate Neb 20 Mcg/2 Ml INH Not Given RTBID REBECCA Gabapentin 200 mg 09/20/20 06:00 09/26/20 13:19 Gabapentin 100 Mg Capsule PO 200 mg TID REBECCA Administration Morphine Sulfate 2 mg 09/19/20 18:44 09/26/20 13:19 Morphine 2 Mg/Ml Carpuject IVP 2 mg Q2HR PRN Administration Pain 8 to 10 Multi-Ingredient Ointment 1 applic 09/19/20 20:47 09/25/20 21:24 Zinc Oxide 20% Oint 30 Gm Tube TOP 1 applic PRN PRN Administration Skin Care Nortriptyline HCl 50 mg 09/20/20 21:00 09/25/20 21:12 Nortriptyline 25 Mg Capsule PO 50 mg QPM REBECCA Administration Ondansetron HCl 4 mg 09/19/20 18:44 09/25/20 12:42 Ondansetron 4 Mg/2 Ml Vial IVP 4 mg Q6HR PRN Administration Nausea / Vomiting Oxycodone HCl 5 mg 09/19/20 18:44 09/26/20 11:03 Oxycodone 5 Mg Tablet PO 5 mg Q4HR PRN Administration Pain 5 to 7 Pantoprazole Sodium 40 mg 09/20/20 16:00 09/26/20 06:34 Pantoprazole 40 Mg Tablet PO 40 mg BIDAC REBECCA Administration Saccharomyces Boulardii 500 mg 09/23/20 10:30 09/26/20 10:44 Saccharomyces Boulardii 250 Mg Capsule PO 500 mg BIDWM REBECCA Administration Scopolamine HBr 1 patch 09/23/20 10:00 09/26/20 11:04 Scopolamine Patch TOP 1 patch Q3D REBECCA Administration Sodium Chloride 10 ml 09/19/20 18:44 09/26/20 13:19 Sodium Chloride Flush 0.9% 10 Ml Syringe IVP 10 ml PRN PRN Administration NEEDED PER PROVIDER ORDERS Sodium Chloride 10 ml 09/20/20 01:00 09/26/20 10:49 Sodium Chloride Flush 0.9% 10 Ml Syringe IVP 10 ml 0100,0900,1700 REBECCA Administration Thiamine HCl 100 mg 09/20/20 09:00 09/26/20 10:48 Thiamine 100 Mg Tablet PO 100 mg DAILY REBECCA Administration Trazodone HCl 50 mg 09/20/20 21:00 09/25/20 21:12 Trazodone 50 Mg Tablet PO 50 mg QPM REBECCA Administration Vancomycin HCl 125 mg 09/19/20 21:00 09/26/20 13:19 Vancomycin 125 Mg Capsule PO 125 mg QID REBECCA Administration - Lab Result Fish Bone Diagrams: 09/26/20 08:22 09/26/20 08:22 - Additional Planning My Orders: My Active Orders 09/25/20 Dinner DIET [Gluten Free Diet] [DIET] 09/25/20 20:52 Min Oil/Dimeth/Coconut Oil Crm [Cavilon] 1 applic TOP PRN PRN 09/26/20 Guaiac [OCCULT BLOOD IN PAT. SINGLE] [RAPID] Stat 09/26/20 16:00 Sucralfate [Carafate] 1 gm PO 0700,1100,1600,2200 Subjective - Subjective Patient Reports: Feeling Better, Resting Comfortably Objective Vital Signs: Vital Signs - 24 hr 09/25/20 09/25/20 09/25/20 16:23 16:28 21:07 Temperature 36.6 C 36.6 C 36.7 C Heart Rate 76 Heart Rate [ 76 66 Brachial] Respiratory 20 18 19 Rate Blood Pressure 145/73 H 152/73 H [Right Brachial artery] O2 Saturation 92 96 94 09/26/20 09/26/20 09/26/20 01:30 05:05 09:10 Temperature 36.6 C 36.5 C 36.6 C Heart Rate Heart Rate [ 77 69 70 Brachial] Respiratory 18 18 19 Rate Blood Pressure 160/74 H 152/64 H 165/70 H [Right Brachial artery] O2 Saturation 95 94 95 09/26/20 09:30 Temperature Heart Rate 70 Heart Rate [ Brachial] Respiratory 16 Rate Blood Pressure [Right Brachial artery] O2 Saturation Oxygen O2 Source Room air I&O (Last 24 Hrs): Intake and Output Totals x24h 09/24/20 09/25/20 09/26/20 23:59 23:59 23:59 Intake Total 910 1510 Output Total 1999 1430 1225 Balance -1090 80 -1225 General: Alert, Oriented x3 HEENT: Mucous membr. moist/pink Neck: Supple, No JVD Neuro: Alert, Non Focal Cardiovascular: No murmurs Respiratory: No respiratory distress Abdomen: Soft (Less distended) Extremities: No edema - Results Results: Laboratory Results WBC 12.0 x10^3/uL (4.8-10.8) H 09/26/20 08:22 RBC 3.28 10^6/uL (4.70-6.10) L 09/26/20 08:22 Hgb 9.2 g/dL (14.0-18.0) L 09/26/20 08:22 Hct 29.2 % (42.0-52.0) L 09/26/20 08:22 MCV 89.0 fL (80.0-94.0) 09/26/20 08:22 MCH 28.0 pg (27.0-31.0) 09/26/20 08:22 MCHC 31.5 g/dL (32.0-36.0) L 09/26/20 08:22 RDW 16.4 % (12.0-15.0) H 09/26/20 08:22 Plt Count 385 10^3/uL (130-450) 09/26/20 08:22 MPV 9.3 fL (7.4-11.4) 09/26/20 08:22 Neut # (Auto) 9.6 10^3/uL (1.5-6.6) H 09/26/20 08:22 Lymph # (Auto) 1.0 10^3/uL (1.5-3.5) L 09/26/20 08:22 [place] # (Auto) 0.7 10^3/uL (0.0-1.0) 09/26/20 08:22 Eos # (Auto) 0.4 10^3/uL (0.0-0.7) 09/26/20 08:22 Baso # (Auto) 0.1 10^3/uL (0.0-0.1) 09/26/20 08:22 Absolute Nucleated RBC 0.00 x10^3/uL 09/26/20 08:22 Nucleated RBC % 0.0 /100WBC 09/26/20 08:22 PT 19.3 secs (9.9-12.6) H 09/22/20 06:23 INR 1.8 (0.8-1.2) H 09/22/20 06:23 Sodium 136 mmol/L (135-145) 09/26/20 08:22 Potassium 4.0 mmol/L (3.5-5.0) 09/26/20 08:22 Chloride 95 mmol/L (101-111) L 09/26/20 08:22 Carbon Dioxide 30 mmol/L (21-32) 09/26/20 08:22 Anion Gap 11.0 (6-13) 09/26/20 08:22 BUN 8 mg/dL (6-20) 09/26/20 08:22 Creatinine 1.0 mg/dL (0.6-1.2) 09/26/20 08:22 Estimated GFR (MDRD) 76 (>89) L 09/26/20 08:22 Glucose 103 mg/dL (70-100) H 09/26/20 08:22 Estimat Average Glucose 126 mg/dL (70-100) H 09/20/20 07:11 Hemoglobin A1c % 6.0 % (4.27-6.07) 09/20/20 07:11 Lactic Acid 1.7 mmol/L (0.5-2.2) 09/19/20 15:06 Calcium 8.4 mg/dL (8.5-10.3) L 09/26/20 08:22 Phosphorus 4.3 mg/dL (2.5-4.6) 09/26/20 08:22 Magnesium 1.6 mg/dL (1.7-2.8) L 09/26/20 08:22 Iron 13 ug/dL (45-182) L 09/20/20 07:11 TIBC 164 ug/dL (250-450) L 09/20/20 07:11 % Saturation 8 % (20-50) L 09/20/20 07:11 Transferrin 117 mg/dL (180-329) L 09/20/20 07:11 Ferritin 344.2 ng/mL (23.9-336.2) H 09/20/20 07:11 Total Bilirubin 0.7 mg/dL (0.2-1.0) 09/25/20 13:38 AST < 10 IU/L (10-42) L 09/25/20 13:38 ALT 10 IU/L (10-60) 09/25/20 13:38 Alkaline Phosphatase 66 IU/L (42-121) 09/25/20 13:38 Total Protein 6.4 g/dL (6.7-8.2) L 09/25/20 13:38 Albumin 3.0 g/dL (3.2-5.5) L 09/25/20 13:38 Globulin 3.4 g/dL (2.1-4.2) 09/25/20 13:38 Albumin/Globulin Ratio 0.9 (1.0-2.2) L 09/25/20 13:38 Lipase 15 U/L (22-51) L 09/19/20 15:06 Urine Color DARK YELLOW 09/20/20 06:50 Urine Clarity CLEAR (CLEAR) 09/20/20 06:50 Urine pH 5.0 PH (5.0-7.5) 09/20/20 06:50 Ur Specific [place] 1.020 (1.002-1.030) 09/20/20 06:50 Urine Protein TRACE mg/dL (NEGATIVE) 09/20/20 06:50 Urine Glucose (UA) NEGATIVE mg/dL (NEGATIVE) 09/20/20 06:50 Urine Ketones NEGATIVE mg/dL (NEGATIVE) 09/20/20 06:50 Urine Occult Blood NEGATIVE (NEGATIVE) 09/20/20 06:50 Urine Nitrite NEGATIVE (NEGATIVE) 09/20/20 06:50 Urine Bilirubin NEGATIVE (NEGATIVE) 09/20/20 06:50 Urine Urobilinogen 0.2 (NORMAL) E.U./dL (NORMAL) 09/20/20 06:50 Ur Leukocyte Esterase NEGATIVE (NEGATIVE) 09/20/20 06:50 Ur Microscopic Review NOT INDICATED 09/20/20 06:50 Urine Culture Comments NOT INDICATED 09/20/20 06:50 Nasal Adenovirus (PCR) NOT DETECTED 09/25/20 12:25 Nasal B. parapertussis DNA (PCR) NOT DETECTED 09/25/20 12:25 Nasal Coronavir 229E PCR NOT DETECTED 09/25/20 12:25 Nasal Coronavir HKU1 PCR NOT DETECTED 09/25/20 12:25 Nasal Coronavir NL63 PCR NOT DETECTED 09/25/20 12:25 Nasal Coronavir OC43 PCR NOT DETECTED 09/25/20 12:25 Nasal Enterovir/Rhinovir PCR NOT DETECTED 09/25/20 12:25 Nasal Influenza B PCR NOT DETECTED 09/25/20 12:25 Nasal Influenza A PCR NOT DETECTED 09/25/20 12:25 Nasal Parainfluen 1 PCR NOT DETECTED 09/25/20 12:25 Nasal Parainfluen 2 PCR NOT DETECTED 09/25/20 12:25 Nasal Parainfluen 3 PCR NOT DETECTED 09/25/20 12:25 Nasal Parainfluen 4 PCR NOT DETECTED 09/25/20 12:25 Nasal RSV (PCR) NOT DETECTED 09/25/20 12:25 Nasal B.pertussis DNA PCR NOT DETECTED 09/25/20 12:25 Nasal C.pneumoniae (PCR) NOT DETECTED 09/25/20 12:25 Nacho Human Metapneumo PCR NOT DETECTED 09/25/20 12:25 Nasal M.pneumoniae (PCR) NOT DETECTED 09/25/20 12:25 Nasal SARS-CoV-2 (PCR) NOT DETECTED 09/25/20 12:25 Stl C. diff Tox B Gene POSITIVE (NEGATIVE) A* 09/19/20 15:04 Urine Opiates Screen NEGATIVE (NEGATIVE) 09/20/20 06:50 Ur Oxycodone Screen POSITIVE (NEGATIVE) H 09/20/20 06:50 Urine Methadone Screen NEGATIVE (NEGATIVE) 09/20/20 06:50 Ur Propoxyphene Screen NEGATIVE (NEGATIVE) 09/20/20 06:50 Ur Barbiturates Screen NEGATIVE (NEGATIVE) 09/20/20 06:50 Ur Tricyclics Screen NEGATIVE (NEGATIVE) 09/20/20 06:50 Ur Phencyclidine Scrn NEGATIVE (NEGATIVE) 09/20/20 06:50 Ur Amphetamine Screen NEGATIVE (NEGATIVE) 09/20/20 06:50 U Methamphetamines Scrn NEGATIVE (NEGATIVE) 09/20/20 06:50 U Benzodiazepines Scrn NEGATIVE (NEGATIVE) 09/20/20 06:50 Urine Cocaine Screen NEGATIVE (NEGATIVE) 09/20/20 06:50 U Cannabinoids Screen POSITIVE (NEGATIVE) H 09/20/20 06:50 Ref Lab Test Result REPORT 09/19/20 15:06 Blood Type A POSITIVE 09/21/20 07:50 Blood Type Recheck A POSITIVE 09/21/20 11:54 Antibody Screen NEGATIVE 09/21/20 07:50 Crossmatch IS Only See Detail 09/21/20 07:50 - Procedures Procedures: Procedures EXCISION OF DUODENUM, ENDO, DIAGN (03/10/16) EXCISION OF ESOPHAGOGASTRIC JUNCTION, ENDO, DIAGN (04/18/19) EXCISION OF LOWER ESOPHAGUS, ENDO, DIAGN (03/10/16) EXCISION OF SIGMOID COLON, ENDO (04/18/19) EXCISION OF SIGMOID COLON, ENDO, DIAGN (12/17/14) OTHER OPEN INCISIONAL HERNIA REPAIR WITH GRAFT OR PROSTHESIS (12/14/13)
[2020-09-26] MEDS: SUCRALFATE 1 GM/10 ML UDC PO SCH ×2 (16:03→21:38)
[2020-09-26] MEDS: FORMOTEROL FUMARATE NEB 20 MCG/2 ML INH SCH ×2 (20:20→23:59)
[2020-09-26] MEDS: BUDESONIDE 0.5 MG/2 ML NEB INH SCH ×2 (20:20→23:58)
[2020-09-26] MEDS: NORTRIPTYLINE 25 MG CAPSULE PO SCH (21:38)
[2020-09-26] MEDS: traZODone 50 MG TABLET PO SCH (21:38)
[2020-09-27] MEDS: oxyCODONE 5 MG TABLET PO PRN ×4 (00:58→21:25)
[2020-09-27] MEDS: SODIUM CHLORIDE FLUSH 0.9% 10 ML SYRINGE IVP SCH ×3 (00:59→16:35)
[2020-09-27] MEDS: GABAPENTIN 100 MG CAPSULE PO SCH ×3 (05:59→21:20)
[2020-09-27] MEDS: PANTOPRAZOLE 40 MG TABLET PO SCH ×2 (06:00→16:35)
[2020-09-27] MEDS: SUCRALFATE 1 GM/10 ML UDC PO SCH ×4 (06:00→21:21)
[2020-09-27 06:50] LABS: HCT - HEMATOCRIT 29.1 % (42.0-52.0); HGB - HEMOGLOBIN 8.9 g/dL (14.0-18.0); MEAN CORPUSCULAR HEMOGLOBIN 27.1 pg (27.0-31.0); MEAN CORPUSCULAR HGB CONC 30.6 g/dL (32.0-36.0); MEAN CORPUSCULAR VOLUME 88.4 fL (80.0-94.0); MEAN PLATELET VOLUME 9.5 fL (7.4-11.4); RED BLOOD COUNT 3.29 10^6/uL (4.70-6.10); RED CELL DISTRIBUTION WIDTH 16.3 % (12.0-15.0); WHITE BLOOD COUNT 10.8 x10^3/uL (4.8-10.8)
[2020-09-27] MEDS: FORMOTEROL FUMARATE NEB 20 MCG/2 ML INH SCH ×2 (08:13→20:45)
[2020-09-27] MEDS: BUDESONIDE 0.5 MG/2 ML NEB INH SCH ×2 (08:13→20:45)
[2020-09-27] MEDS: FERROUS SULFATE 325 MG TABLET PO SCH ×2 (08:21→16:35)
[2020-09-27] MEDS: FOLIC ACID 1 MG TABLET PO SCH (08:21)
[2020-09-27] MEDS: THIAMINE 100 MG TABLET PO SCH (08:21)
[2020-09-27] MEDS: VANCOMYCIN 125 MG CAPSULE PO SCH ×4 (08:21→21:20)
[2020-09-27] MEDS: carvediloL 12.5 MG TABLET PO SCH ×2 (08:21→21:20)
[2020-09-27] MEDS: SACCHAROMYCES BOULARDII 250 MG CAPSULE PO SCH ×2 (08:21→16:34)
[2020-09-27] MEDS ORDERED: MAGNESIUM SULFATE 1 GM in SODIUM CHLORIDE 0.9% 50 ML IV ONE (09:08)
[2020-09-27] MEDS: MAGNESIUM OXIDE 400 MG TABLET PO SCH (09:53)
[2020-09-27] MEDS: SODIUM CHLORIDE FLUSH 0.9% 10 ML SYRINGE IVP PRN (09:53)
[2020-09-27] MEDS ORDERED: MAGNESIUM SULFATE 2 GRAM 2 GM/50 ML BAG IV ONE (10:00)
[2020-09-27] MEDS: ACETAMINOPHEN 325 MG TABLET PO PRN (12:00)
--- NOTE | 2020-09-27 16:31 | PROVIDER PROGRESS NOTE ---
Assessment/Plan - Problem List (1) C. difficile colitis Assessment/Plan: Improved with about 1 BM daily, but it is still watery/loose. Continue po Vanco Probiotic Imodium (2) Chronic anemia Assessment/Plan: His Hgb has been stable for 4 days. [facility] called back with GI on the phone, for a poss transfer and I discussed the case. The GI specialist advised that no EGD is needed if he is not having melena or coffee ground emesis, since the Hgb has been stable for 4 days. Will cancel the stool guaic repeat (3) Heme positive stool Assessment/Plan: The GI specialist from [facility] recommended PPI bid (which he has been on empirically) and oral Sucralfate liquid, which I will added yesterday. No transfer was needed for endoscopy, per the GI specialist. If he re-bleeds, GI said that Thoracic surgery would need to be contacted for transfer and EGD, not GI. Will cancel the repeat guaiv=c order. (4) Chronic atrial fibrillation Assessment/Plan: HR is under control The Warfarin was stopped due to GI blood loss anemiaPlan for this to remain off for 4 weeks. (5) Chronic pain disorder Assessment/Plan: Controlled. Continue pain meds as needed (6) Cognitive deficits Assessment/Plan: As per Hx. Plan is for him to return home to live with his sister for a while until he is further stabilized. He told me yesterday he is planning on having his homeless brother from the [place] move in with him once he gets to his own house. This was passed down to the rn social services in order to help intercede if this is not a safe discharge home (7) Generalized weakness Assessment/Plan: He was progressing nicely with PT until yesterday and today. He will not need a SNF for rehab, per PT and OT. They advised Home Health PT and OT and a referral was sent today. We learned that his [facility] Medicaid insurance does not cover Home Health PT and OT. (8) Hypertension Assessment/Plan: Stable on current meds and management (9) Type 2 diabetes mellitus with complication, with fci current use of insulin pump Assessment/Plan: Continue cc diet and Insulin (10) COPD without exacerbation Assessment/Plan: Stable - Current Meds Current Meds: Current Medications Generic Name Dose Route Start Last Admin Trade Name Freq PRN Reason Stop Dose Admin Acetaminophen 650 mg 09/19/20 18:44 09/27/20 12:00 Acetaminophen 325 Mg Tablet PO 650 mg Q4HR PRN Administration Pain 1 to 4 Albuterol/Ipratropium 3 ml 09/19/20 22:26 09/25/20 07:57 Ipratropium/Albuterol 3 Ml Neb INH 3 ml Q4HR PRN Administration Wheezing Budesonide 0.5 mg 09/20/20 19:00 09/27/20 08:13 Budesonide 0.5 Mg/2 Ml Neb INH Not Given RTBID REBECCA Carvedilol 25 mg 09/19/20 23:00 09/27/20 08:21 Carvedilol 12.5 Mg Tablet PO 25 mg BID REBECCA Administration Ferrous Sulfate 325 mg 09/20/20 17:00 09/27/20 08:21 Ferrous Sulfate 325 Mg Tablet PO 325 mg BIDWM REBECCA Administration Folic Acid 1 mg 09/20/20 09:00 09/27/20 08:21 Folic Acid 1 Mg Tablet PO 1 mg DAILY REBECCA Administration Formoterol Fumarate 20 mcg 09/20/20 19:00 09/27/20 08:13 Formoterol Fumarate Neb 20 Mcg/2 Ml INH Not Given RTBID REBECCA Gabapentin 200 mg 09/20/20 06:00 09/27/20 13:26 Gabapentin 100 Mg Capsule PO 200 mg TID REBECCA Administration Magnesium Oxide 400 mg 09/27/20 10:00 09/27/20 09:53 Magnesium Oxide 400 Mg Tablet PO 400 mg DAILYWM REBECCA Administration Morphine Sulfate 2 mg 09/19/20 18:44 09/26/20 13:19 Morphine 2 Mg/Ml Carpuject IVP 2 mg Q2HR PRN Administration Pain 8 to 10 Multi-Ingredient Ointment 1 applic 09/19/20 20:47 09/25/20 21:24 Zinc Oxide 20% Oint 30 Gm Tube TOP 1 applic PRN PRN Administration Skin Care Nortriptyline HCl 50 mg 09/20/20 21:00 09/26/20 21:38 Nortriptyline 25 Mg Capsule PO 50 mg QPM REBECCA Administration Ondansetron HCl 4 mg 09/19/20 18:44 09/25/20 12:42 Ondansetron 4 Mg/2 Ml Vial IVP 4 mg Q6HR PRN Administration Nausea / Vomiting Oxycodone HCl 5 mg 09/19/20 18:44 09/27/20 14:53 Oxycodone 5 Mg Tablet PO 5 mg Q4HR PRN Administration Pain 5 to 7 Pantoprazole Sodium 40 mg 09/20/20 16:00 09/27/20 06:00 Pantoprazole 40 Mg Tablet PO 40 mg BIDAC REBECCA Administration Saccharomyces Boulardii 500 mg 09/23/20 10:30 09/27/20 08:21 Saccharomyces Boulardii 250 Mg Capsule PO 500 mg BIDWM REBECCA Administration Scopolamine HBr 1 patch 09/23/20 10:00 09/26/20 11:04 Scopolamine Patch TOP 1 patch Q3D REBECCA Administration Sodium Chloride 10 ml 09/19/20 18:44 09/27/20 09:53 Sodium Chloride Flush 0.9% 10 Ml Syringe IVP 10 ml PRN PRN Administration NEEDED PER PROVIDER ORDERS Sodium Chloride 10 ml 09/20/20 01:00 09/27/20 08:22 Sodium Chloride Flush 0.9% 10 Ml Syringe IVP 10 ml 0100,0900,1700 REBECCA Administration Sucralfate 1 gm 09/26/20 16:00 09/27/20 12:00 Sucralfate 1 Gm/10 Ml Udc PO 1 gm 0700,1100,1600,2200 REBECCA Administration Thiamine HCl 100 mg 09/20/20 09:00 09/27/20 08:21 Thiamine 100 Mg Tablet PO 100 mg DAILY REBECCA Administration Trazodone HCl 50 mg 09/20/20 21:00 09/26/20 21:38 Trazodone 50 Mg Tablet PO 50 mg QPM REBECCA Administration Vancomycin HCl 125 mg 09/19/20 21:00 09/27/20 13:26 Vancomycin 125 Mg Capsule PO 125 mg QID REBECCA Administration - Lab Result Fish Bone Diagrams: 09/27/20 06:32 09/26/20 08:22 - Additional Planning My Orders: My Active Orders 09/26/20 16:00 Sucralfate [Carafate] 1 gm PO 0700,1100,1600,2200 09/26/20 Dinner Regular Diet [DIET] 09/27/20 Home Health Referral [CONS] Routine 09/27/20 10:00 Magnesium Oxide [Mag Ox] 400 mg PO DAILYWM 09/27/20 11:24 Miscellaenous Nursing Order [RC] QSHIFT 09/28/20 05:00 BMP - BASIC METABOLIC PANEL [CHEM] DAILYLAB CBC W/O DIFF (HEMOGRAM) [HEME] DAILYLAB MAGNESIUM [CHEM] DAILYLAB 09/29/20 05:00 BMP - BASIC METABOLIC PANEL [CHEM] DAILYLAB CBC W/O DIFF (HEMOGRAM) [HEME] DAILYLAB MAGNESIUM [CHEM] DAILYLAB Subjective - Subjective Patient Reports: Feeling Better Nursing Reports: Other (He was resistant to work with PT yesterday and today) Objective Vital Signs: Vital Signs - 24 hr 09/26/20 09/27/20 09/27/20 20:20 00:55 07:35 Temperature 36.6 C 36.5 C Heart Rate 70 Heart Rate [ 71 68 Brachial] Respiratory 20 18 16 Rate Blood Pressure 114/88 H 167/65 H [Right Brachial artery] O2 Saturation 96 92 09/27/20 16:00 Temperature 36.5 C Heart Rate Heart Rate [ 60 Brachial] Respiratory 16 Rate Blood Pressure 155/70 H [Right Brachial artery] O2 Saturation 97 Oxygen O2 Source Nasal cannula I&O (Last 24 Hrs): Intake and Output Totals x24h 09/25/20 09/26/20 09/27/20 23:59 23:59 23:59 Intake Total 6295 096 6017 Output Total 1430 2025 1550 Balance 80 -1425 -310 General: Alert, Oriented x3 HEENT: Mucous membr. moist/pink Neck: Supple, No JVD Neuro: Alert, Non Focal Cardiovascular: Regular rate Respiratory: No respiratory distress Abdomen: Soft, No tenderness Extremities: No edema - Results Results: Laboratory Results WBC 10.8 x10^3/uL (4.8-10.8) 09/27/20 06:32 RBC 3.29 10^6/uL (4.70-6.10) L 09/27/20 06:32 Hgb 8.9 g/dL (14.0-18.0) L 09/27/20 06:32 Hct 29.1 % (42.0-52.0) L 09/27/20 06:32 MCV 88.4 fL (80.0-94.0) 09/27/20 06:32 MCH 27.1 pg (27.0-31.0) 09/27/20 06:32 MCHC 30.6 g/dL (32.0-36.0) L 09/27/20 06:32 RDW 16.3 % (12.0-15.0) H 09/27/20 06:32 Plt Count 394 10^3/uL (130-450) 09/27/20 06:32 MPV 9.5 fL (7.4-11.4) 09/27/20 06:32 Neut # (Auto) 9.6 10^3/uL (1.5-6.6) H 09/26/20 08:22 Lymph # (Auto) 1.0 10^3/uL (1.5-3.5) L 09/26/20 08:22 Worth # (Auto) 0.7 10^3/uL (0.0-1.0) 09/26/20 08:22 Eos # (Auto) 0.4 10^3/uL (0.0-0.7) 09/26/20 08:22 Baso # (Auto) 0.1 10^3/uL (0.0-0.1) 09/26/20 08:22 Absolute Nucleated RBC 0.00 x10^3/uL 09/26/20 08:22 Nucleated RBC % 0.0 /100WBC 09/26/20 08:22 PT 19.3 secs (9.9-12.6) H 09/22/20 06:23 INR 1.8 (0.8-1.2) H 09/22/20 06:23 Sodium 136 mmol/L (135-145) 09/26/20 08:22 Potassium 4.0 mmol/L (3.5-5.0) 09/26/20 08:22 Chloride 95 mmol/L (101-111) L 09/26/20 08:22 Carbon Dioxide 30 mmol/L (21-32) 09/26/20 08:22 Anion Gap 11.0 (6-13) 09/26/20 08:22 BUN 8 mg/dL (6-20) 09/26/20 08:22 Creatinine 1.0 mg/dL (0.6-1.2) 09/26/20 08:22 Estimated GFR (MDRD) 76 (>89) L 09/26/20 08:22 Glucose 103 mg/dL (70-100) H 09/26/20 08:22 Estimat Average Glucose 126 mg/dL (70-100) H 09/20/20 07:11 Hemoglobin A1c % 6.0 % (4.27-6.07) 09/20/20 07:11 Lactic Acid 1.7 mmol/L (0.5-2.2) 09/19/20 15:06 Calcium 8.4 mg/dL (8.5-10.3) L 09/26/20 08:22 Phosphorus 4.3 mg/dL (2.5-4.6) 09/26/20 08:22 Magnesium 1.5 mg/dL (1.7-2.8) L 09/27/20 06:32 Iron 13 ug/dL (45-182) L 09/20/20 07:11 TIBC 164 ug/dL (250-450) L 09/20/20 07:11 % Saturation 8 % (20-50) L 09/20/20 07:11 Transferrin 117 mg/dL (180-329) L 09/20/20 07:11 Ferritin 344.2 ng/mL (23.9-336.2) H 09/20/20 07:11 Total Bilirubin 0.7 mg/dL (0.2-1.0) 09/25/20 13:38 AST < 10 IU/L (10-42) L 09/25/20 13:38 ALT 10 IU/L (10-60) 09/25/20 13:38 Alkaline Phosphatase 66 IU/L (42-121) 09/25/20 13:38 Total Protein 6.4 g/dL (6.7-8.2) L 09/25/20 13:38 Albumin 3.0 g/dL (3.2-5.5) L 09/25/20 13:38 Globulin 3.4 g/dL (2.1-4.2) 09/25/20 13:38 Albumin/Globulin Ratio 0.9 (1.0-2.2) L 09/25/20 13:38 Lipase 15 U/L (22-51) L 09/19/20 15:06 Urine Color DARK YELLOW 09/20/20 06:50 Urine Clarity CLEAR (CLEAR) 09/20/20 06:50 Urine pH 5.0 PH (5.0-7.5) 09/20/20 06:50 Ur Specific [place] 1.020 (1.002-1.030) 09/20/20 06:50 Urine Protein TRACE mg/dL (NEGATIVE) 09/20/20 06:50 Urine Glucose (UA) NEGATIVE mg/dL (NEGATIVE) 09/20/20 06:50 Urine Ketones NEGATIVE mg/dL (NEGATIVE) 09/20/20 06:50 Urine Occult Blood NEGATIVE (NEGATIVE) 09/20/20 06:50 Urine Nitrite NEGATIVE (NEGATIVE) 09/20/20 06:50 Urine Bilirubin NEGATIVE (NEGATIVE) 09/20/20 06:50 Urine Urobilinogen 0.2 (NORMAL) E.U./dL (NORMAL) 09/20/20 06:50 Ur Leukocyte Esterase NEGATIVE (NEGATIVE) 09/20/20 06:50 Ur Microscopic Review NOT INDICATED 09/20/20 06:50 Urine Culture Comments NOT INDICATED 09/20/20 06:50 Nasal Adenovirus (PCR) NOT DETECTED 09/25/20 12:25 Nasal B. parapertussis DNA (PCR) NOT DETECTED 09/25/20 12:25 Nasal Coronavir 229E PCR NOT DETECTED 09/25/20 12:25 Nasal Coronavir HKU1 PCR NOT DETECTED 09/25/20 12:25 Nasal Coronavir NL63 PCR NOT DETECTED 09/25/20 12:25 Nasal Coronavir OC43 PCR NOT DETECTED 09/25/20 12:25 Nasal Enterovir/Rhinovir PCR NOT DETECTED 09/25/20 12:25 Nasal Influenza B PCR NOT DETECTED 09/25/20 12:25 Nasal Influenza A PCR NOT DETECTED 09/25/20 12:25 Nasal Parainfluen 1 PCR NOT DETECTED 09/25/20 12:25 Nasal Parainfluen 2 PCR NOT DETECTED 09/25/20 12:25 Nasal Parainfluen 3 PCR NOT DETECTED 09/25/20 12:25 Nasal Parainfluen 4 PCR NOT DETECTED 09/25/20 12:25 Nasal RSV (PCR) NOT DETECTED 09/25/20 12:25 Nasal B.pertussis DNA PCR NOT DETECTED 09/25/20 12:25 Nasal C.pneumoniae (PCR) NOT DETECTED 09/25/20 12:25 Nacho Human Metapneumo PCR NOT DETECTED 09/25/20 12:25 Nasal M.pneumoniae (PCR) NOT DETECTED 09/25/20 12:25 Nasal SARS-CoV-2 (PCR) NOT DETECTED 09/25/20 12:25 Stl C. diff Tox B Gene POSITIVE (NEGATIVE) A* 09/19/20 15:04 Urine Opiates Screen NEGATIVE (NEGATIVE) 09/20/20 06:50 Ur Oxycodone Screen POSITIVE (NEGATIVE) H 09/20/20 06:50 Urine Methadone Screen NEGATIVE (NEGATIVE) 09/20/20 06:50 Ur Propoxyphene Screen NEGATIVE (NEGATIVE) 09/20/20 06:50 Ur Barbiturates Screen NEGATIVE (NEGATIVE) 09/20/20 06:50 Ur Tricyclics Screen NEGATIVE (NEGATIVE) 09/20/20 06:50 Ur Phencyclidine Scrn NEGATIVE (NEGATIVE) 09/20/20 06:50 Ur Amphetamine Screen NEGATIVE (NEGATIVE) 09/20/20 06:50 U Methamphetamines Scrn NEGATIVE (NEGATIVE) 09/20/20 06:50 U Benzodiazepines Scrn NEGATIVE (NEGATIVE) 09/20/20 06:50 Urine Cocaine Screen NEGATIVE (NEGATIVE) 09/20/20 06:50 U Cannabinoids Screen POSITIVE (NEGATIVE) H 09/20/20 06:50 Ref Lab Test Result REPORT 09/19/20 15:06 Blood Type A POSITIVE 09/21/20 07:50 Blood Type Recheck A POSITIVE 09/21/20 11:54 Antibody Screen NEGATIVE 09/21/20 07:50 Crossmatch IS Only See Detail 09/21/20 07:50 - Procedures Procedures: Procedures EXCISION OF DUODENUM, ENDO, DIAGN (03/10/16) EXCISION OF ESOPHAGOGASTRIC JUNCTION, ENDO, DIAGN (04/18/19) EXCISION OF LOWER ESOPHAGUS, ENDO, DIAGN (03/10/16) EXCISION OF SIGMOID COLON, ENDO (04/18/19) EXCISION OF SIGMOID COLON, ENDO, DIAGN (12/17/14) OTHER OPEN INCISIONAL HERNIA REPAIR WITH GRAFT OR PROSTHESIS (12/14/13)
[2020-09-27] MEDS ORDERED: MORPHINE 2 MG/ML CARPUJECT IVP PRN (16:32)
[2020-09-27] MEDS: traZODone 50 MG TABLET PO SCH (21:20)
[2020-09-27] MEDS: NORTRIPTYLINE 25 MG CAPSULE PO SCH (21:20)
[2020-09-28] MEDS: SODIUM CHLORIDE FLUSH 0.9% 10 ML SYRINGE IVP SCH ×3 (00:38→16:25)
[2020-09-28] MEDS: ACETAMINOPHEN 325 MG TABLET PO PRN (00:38)
[2020-09-28 06:15] LABS: HCT - HEMATOCRIT 31.4 % (42.0-52.0); HGB - HEMOGLOBIN 9.7 g/dL (14.0-18.0); MEAN CORPUSCULAR HEMOGLOBIN 27.2 pg (27.0-31.0); MEAN CORPUSCULAR HGB CONC 30.9 g/dL (32.0-36.0); MEAN CORPUSCULAR VOLUME 88.2 fL (80.0-94.0); MEAN PLATELET VOLUME 9.8 fL (7.4-11.4); RED BLOOD COUNT 3.56 10^6/uL (4.70-6.10); RED CELL DISTRIBUTION WIDTH 16.4 % (12.0-15.0); WHITE BLOOD COUNT 12.5 x10^3/uL (4.8-10.8)
[2020-09-28] MEDS: SUCRALFATE 1 GM/10 ML UDC PO SCH ×5 (06:27→21:47)
[2020-09-28 06:28] LABS: POTASSIUM 4.1 mmol/L (3.5-5.0)
[2020-09-28] MEDS: oxyCODONE 5 MG TABLET PO PRN ×2 (06:28→16:25)
[2020-09-28] MEDS: PANTOPRAZOLE 40 MG TABLET PO SCH ×2 (06:28→16:25)
[2020-09-28] MEDS: GABAPENTIN 100 MG CAPSULE PO SCH ×3 (06:28→21:47)
[2020-09-28] MEDS: BUDESONIDE 0.5 MG/2 ML NEB INH SCH (07:57)
[2020-09-28] MEDS: FORMOTEROL FUMARATE NEB 20 MCG/2 ML INH SCH (07:57)
[2020-09-28] MEDS: FOLIC ACID 1 MG TABLET PO SCH (08:12)
[2020-09-28] MEDS: THIAMINE 100 MG TABLET PO SCH (08:12)
[2020-09-28] MEDS: SACCHAROMYCES BOULARDII 250 MG CAPSULE PO SCH ×2 (08:12→16:25)
[2020-09-28] MEDS: VANCOMYCIN 125 MG CAPSULE PO SCH ×5 (08:12→21:47)
[2020-09-28] MEDS: polyethylene glycoL 3350 17 GM PACKET PO SCH (08:13)
[2020-09-28] MEDS: MAGNESIUM OXIDE 400 MG TABLET PO SCH (08:13)
[2020-09-28] MEDS: FERROUS SULFATE 325 MG TABLET PO SCH ×2 (08:13→16:25)
[2020-09-28] MEDS: carvediloL 12.5 MG TABLET PO SCH ×2 (08:13→21:47)
[2020-09-28] MEDS ORDERED: BENZOCAINE/MENTHOL LOZENGE MM PRN (12:01)
--- NOTE | 2020-09-28 12:57 | PROVIDER PROGRESS NOTE ---
Assessment/Plan - Problem List (1) Generalized weakness Assessment/Plan: He has been participating intermittently with PT withn plan to be DCh home (with his sister or his own home), however for 2 days he refuses to get OOB to work with PT and tells his RN: claims the doctor told him he "does not have to get OOB until Tue" (today is Sun). I went in with his RN, to have a witness, and explained why he does have to get OOB and does have to exercise with PT, since his goal is to go home, and not to a SNF. He responded that he was answering "he will get up oneday, not Tuesday", and apologized. I suspect his cognitive impairment added to this confusion. The RN also reported that he asks for his Morphine and says "I will get OOB only if I get my Morphine". I will stop the Morphine order entirely as there is no distress or severe pain. He also is saying today that his sister told him by phone that she will not help him after discharge because "she is retired". I passed this info on to to confirm that he will have help after Dch and where is Dc. (2) Cognitive deficits Assessment/Plan: As per Hx (3) C. difficile colitis Assessment/Plan: Improving, he is nearing the completion of his course of p.o. Vanco (4) Chronic anemia Assessment/Plan: His Hgb has been stable for 4 days. [facility] called back with GI on the phone, for a poss transfer and I discussed the case. The GI specialist advised that no EGD is needed if he is not having melena or coffee ground emesis, since the Hgb has been stable for 4 days. We canceled the stool guaic repeat (5) Heme positive stool Assessment/Plan: The GI specialist from [facility] recommended PPI bid (which he has been on empirically) and oral Sucralfate liquid, which I added. No transfer was needed for endoscopy, per the GI specialist. If he re-bleeds, GI said that Thoracic surgery would need to be contacted for transfer and EGD, not GI. We cancelled the repeat guaic order. (6) Chronic atrial fibrillation Assessment/Plan: Heart rate is controlled on current meds Coumadin stopped when heme (+) stool resulted and when Hgb dropped to need a transfusion (7) Chronic pain disorder Assessment/Plan: Controlled. Continue pain meds as needed, but we have stopped iv Morphine after tapering its frequency. (8) Hypertension Assessment/Plan: Stable on current meds and management (9) Type 2 diabetes mellitus with complication, with half-way current use of insulin pump Assessment/Plan: Continue cc diet and Insulin (10) COPD without exacerbation Assessment/Plan: Stable - Current Meds Current Meds: Current Medications Generic Name Dose Route Start Last Admin Trade Name Freq PRN Reason Stop Dose Admin Acetaminophen 650 mg 09/19/20 18:44 09/28/20 00:38 Acetaminophen 325 Mg Tablet PO 650 mg Q4HR PRN Administration Pain 1 to 4 Albuterol/Ipratropium 3 ml 09/19/20 22:26 09/25/20 07:57 Ipratropium/Albuterol 3 Ml Neb INH 3 ml Q4HR PRN Administration Wheezing Budesonide 0.5 mg 09/20/20 19:00 09/28/20 07:57 Budesonide 0.5 Mg/2 Ml Neb INH Not Given RTBID REBECCA Carvedilol 25 mg 09/19/20 23:00 09/28/20 08:13 Carvedilol 12.5 Mg Tablet PO 25 mg BID REBECCA Administration Ferrous Sulfate 325 mg 09/20/20 17:00 09/28/20 08:13 Ferrous Sulfate 325 Mg Tablet PO 325 mg BIDWM REBECCA Administration Folic Acid 1 mg 09/20/20 09:00 09/28/20 08:12 Folic Acid 1 Mg Tablet PO 1 mg DAILY REBECCA Administration Formoterol Fumarate 20 mcg 09/20/20 19:00 09/28/20 07:57 Formoterol Fumarate Neb 20 Mcg/2 Ml INH Not Given RTBID REBECCA Gabapentin 200 mg 09/20/20 06:00 09/28/20 06:28 Gabapentin 100 Mg Capsule PO 200 mg TID REBECCA Administration Magnesium Oxide 400 mg 09/27/20 10:00 09/28/20 08:13 Magnesium Oxide 400 Mg Tablet PO 400 mg DAILYWM REBECCA Administration Morphine Sulfate 2 mg 09/27/20 16:32 09/27/20 16:35 Morphine 2 Mg/Ml Carpuject IVP 2 mg Q8HR PRN Administration Pain 8 to 10 Multi-Ingredient Ointment 1 applic 09/19/20 20:47 09/25/20 21:24 Zinc Oxide 20% Oint 30 Gm Tube TOP 1 applic PRN PRN Administration Skin Care Nortriptyline HCl 50 mg 09/20/20 21:00 09/27/20 21:20 Nortriptyline 25 Mg Capsule PO 50 mg QPM REBECCA Administration Ondansetron HCl 4 mg 09/19/20 18:44 09/25/20 12:42 Ondansetron 4 Mg/2 Ml Vial IVP 4 mg Q6HR PRN Administration Nausea / Vomiting Oxycodone HCl 5 mg 09/19/20 18:44 09/28/20 06:28 Oxycodone 5 Mg Tablet PO 5 mg Q4HR PRN Administration Pain 5 to 7 Pantoprazole Sodium 40 mg 09/20/20 16:00 09/28/20 06:28 Pantoprazole 40 Mg Tablet PO 40 mg BIDAC REBECCA Administration Polyethylene Glycol 17 gm 09/28/20 09:00 09/28/20 08:13 Polyethylene Glycol 3350 17 Gm Packet PO 17 gm DAILY REBECCA Administration Saccharomyces Boulardii 500 mg 09/23/20 10:30 09/28/20 08:12 Saccharomyces Boulardii 250 Mg Capsule PO 500 mg BIDWM REBECCA Administration Scopolamine HBr 1 patch 09/23/20 10:00 09/26/20 11:04 Scopolamine Patch TOP 1 patch Q3D REBECCA Administration Sodium Chloride 10 ml 09/19/20 18:44 09/27/20 09:53 Sodium Chloride Flush 0.9% 10 Ml Syringe IVP 10 ml PRN PRN Administration NEEDED PER PROVIDER ORDERS Sodium Chloride 10 ml 09/20/20 01:00 09/28/20 08:13 Sodium Chloride Flush 0.9% 10 Ml Syringe IVP 10 ml 0100,0900,1700 REBECCA Administration Sucralfate 1 gm 09/26/20 16:00 09/28/20 06:27 Sucralfate 1 Gm/10 Ml Udc PO 1 gm 0700,1100,1600,2200 REBECCA Administration Thiamine HCl 100 mg 09/20/20 09:00 09/28/20 08:12 Thiamine 100 Mg Tablet PO 100 mg DAILY REBECCA Administration Trazodone HCl 50 mg 09/20/20 21:00 09/27/20 21:20 Trazodone 50 Mg Tablet PO 50 mg QPM REBECCA Administration Vancomycin HCl 125 mg 09/19/20 21:00 09/28/20 08:12 Vancomycin 125 Mg Capsule PO 125 mg QID REBECCA Administration - Lab Result Fish Bone Diagrams: 09/29/20 05:15 09/29/20 05:15 - Additional Planning My Orders: My Active Orders 09/27/20 16:32 Morphine Inj (Carpuject) [Morphine (Carpuject)] 2 mg IVP Q8HR PRN 09/28/20 09:00 polyethylene glycoL 3350 [Miralax] 17 gm PO DAILY 09/28/20 12:01 Benzocaine/Menthol [Cepacol] 1 lozenge MM Q2HR PRN phenoL [Chloraseptic] 2 sprays MM Q2HR PRN 09/29/20 05:00 BMP - BASIC METABOLIC PANEL [CHEM] DAILYLAB CBC W/O DIFF (HEMOGRAM) [HEME] DAILYLAB MAGNESIUM [CHEM] DAILYLAB Subjective - Subjective Patient Reports: Resting Comfortably (Much less abdominal pain, no further diarrhea for 2 days, wants to rest and not work with physical therapist, has refused them intermittently yesterday and today) Objective Vital Signs: Vital Signs - 24 hr 09/27/20 09/27/20 09/28/20 16:00 20:45 00:00 Temperature 36.5 C 36.5 C Heart Rate 66 Heart Rate [ 60 70 Brachial] Respiratory 16 18 18 Rate Blood Pressure 155/70 H 148/72 H [Right Brachial artery] O2 Saturation 97 95 09/28/20 07:40 Temperature 36.5 C Heart Rate Heart Rate [ 67 Brachial] Respiratory 16 Rate Blood Pressure 155/75 H [Right Brachial artery] O2 Saturation 97 Oxygen O2 Source Nasal cannula I&O (Last 24 Hrs): Intake and Output Totals x24h 09/26/20 09/27/20 09/28/20 23:59 23:59 23:59 Intake Total 600 1830 240 Output Total 2024 1950 1200 Balance -1425 -120 -960 General: Alert, Oriented x3 HEENT: Mucous membr. moist/pink, Other (Poor dentition) Neuro: Alert, Non Focal Cardiovascular: Other (Not auscultated) Respiratory: No respiratory distress Abdomen: Soft (distended), No tenderness Extremities: No edema - Results Results: Laboratory Results WBC 12.5 x10^3/uL (4.8-10.8) H 09/28/20 04:38 RBC 3.56 10^6/uL (4.70-6.10) L 09/28/20 04:38 Hgb 9.7 g/dL (14.0-18.0) L 09/28/20 04:38 Hct 31.4 % (42.0-52.0) L 09/28/20 04:38 MCV 88.2 fL (80.0-94.0) 09/28/20 04:38 MCH 27.2 pg (27.0-31.0) 09/28/20 04:38 MCHC 30.9 g/dL (32.0-36.0) L 09/28/20 04:38 RDW 16.4 % (12.0-15.0) H 09/28/20 04:38 Plt Count 449 10^3/uL (130-450) 09/28/20 04:38 MPV 9.8 fL (7.4-11.4) 09/28/20 04:38 Neut # (Auto) 9.6 10^3/uL (1.5-6.6) H 09/26/20 08:22 Lymph # (Auto) 1.0 10^3/uL (1.5-3.5) L 09/26/20 08:22 [place] # (Auto) 0.7 10^3/uL (0.0-1.0) 09/26/20 08:22 Eos # (Auto) 0.4 10^3/uL (0.0-0.7) 09/26/20 08:22 Baso # (Auto) 0.1 10^3/uL (0.0-0.1) 09/26/20 08:22 Absolute Nucleated RBC 0.00 x10^3/uL 09/26/20 08:22 Nucleated RBC % 0.0 /100WBC 09/26/20 08:22 PT 19.3 secs (9.9-12.6) H 09/22/20 06:23 INR 1.8 (0.8-1.2) H 09/22/20 06:23 Sodium 137 mmol/L (135-145) 09/28/20 04:38 Potassium 4.1 mmol/L (3.5-5.0) 09/28/20 04:38 Chloride 97 mmol/L (101-111) L 09/28/20 04:38 Carbon Dioxide 29 mmol/L (21-32) 09/28/20 04:38 Anion Gap 11.0 (6-13) 09/28/20 04:38 BUN 8 mg/dL (6-20) 09/28/20 04:38 Creatinine 1.0 mg/dL (0.6-1.2) 09/28/20 04:38 Estimated GFR (MDRD) 76 (>89) L 09/28/20 04:38 Glucose 129 mg/dL (70-100) H 09/28/20 04:38 Estimat Average Glucose 126 mg/dL (70-100) H 09/20/20 07:11 Hemoglobin A1c % 6.0 % (4.27-6.07) 09/20/20 07:11 Lactic Acid 1.7 mmol/L (0.5-2.2) 09/19/20 15:06 Calcium 9.0 mg/dL (8.5-10.3) 09/28/20 04:38 Phosphorus 4.3 mg/dL (2.5-4.6) 09/26/20 08:22 Magnesium 2.0 mg/dL (1.7-2.8) 09/28/20 04:38 Iron 13 ug/dL (45-182) L 09/20/20 07:11 TIBC 164 ug/dL (250-450) L 09/20/20 07:11 % Saturation 8 % (20-50) L 09/20/20 07:11 Transferrin 117 mg/dL (180-329) L 09/20/20 07:11 Ferritin 344.2 ng/mL (23.9-336.2) H 09/20/20 07:11 Total Bilirubin 0.7 mg/dL (0.2-1.0) 09/25/20 13:38 AST < 10 IU/L (10-42) L 09/25/20 13:38 ALT 10 IU/L (10-60) 09/25/20 13:38 Alkaline Phosphatase 66 IU/L (42-121) 09/25/20 13:38 Total Protein 6.4 g/dL (6.7-8.2) L 09/25/20 13:38 Albumin 3.0 g/dL (3.2-5.5) L 09/25/20 13:38 Globulin 3.4 g/dL (2.1-4.2) 09/25/20 13:38 Albumin/Globulin Ratio 0.9 (1.0-2.2) L 09/25/20 13:38 Lipase 15 U/L (22-51) L 09/19/20 15:06 Urine Color DARK YELLOW 09/20/20 06:50 Urine Clarity CLEAR (CLEAR) 09/20/20 06:50 Urine pH 5.0 PH (5.0-7.5) 09/20/20 06:50 Ur Specific [place] 1.020 (1.002-1.030) 09/20/20 06:50 Urine Protein TRACE mg/dL (NEGATIVE) 09/20/20 06:50 Urine Glucose (UA) NEGATIVE mg/dL (NEGATIVE) 09/20/20 06:50 Urine Ketones NEGATIVE mg/dL (NEGATIVE) 09/20/20 06:50 Urine Occult Blood NEGATIVE (NEGATIVE) 09/20/20 06:50 Urine Nitrite NEGATIVE (NEGATIVE) 09/20/20 06:50 Urine Bilirubin NEGATIVE (NEGATIVE) 09/20/20 06:50 Urine Urobilinogen 0.2 (NORMAL) E.U./dL (NORMAL) 09/20/20 06:50 Ur Leukocyte Esterase NEGATIVE (NEGATIVE) 09/20/20 06:50 Ur Microscopic Review NOT INDICATED 09/20/20 06:50 Urine Culture Comments NOT INDICATED 09/20/20 06:50 Nasal Adenovirus (PCR) NOT DETECTED 09/25/20 12:25 Nasal B. parapertussis DNA (PCR) NOT DETECTED 09/25/20 12:25 Nasal Coronavir 229E PCR NOT DETECTED 09/25/20 12:25 Nasal Coronavir HKU1 PCR NOT DETECTED 09/25/20 12:25 Nasal Coronavir NL63 PCR NOT DETECTED 09/25/20 12:25 Nasal Coronavir OC43 PCR NOT DETECTED 09/25/20 12:25 Nasal Enterovir/Rhinovir PCR NOT DETECTED 09/25/20 12:25 Nasal Influenza B PCR NOT DETECTED 09/25/20 12:25 Nasal Influenza A PCR NOT DETECTED 09/25/20 12:25 Nasal Parainfluen 1 PCR NOT DETECTED 09/25/20 12:25 Nasal Parainfluen 2 PCR NOT DETECTED 09/25/20 12:25 Nasal Parainfluen 3 PCR NOT DETECTED 09/25/20 12:25 Nasal Parainfluen 4 PCR NOT DETECTED 09/25/20 12:25 Nasal RSV (PCR) NOT DETECTED 09/25/20 12:25 Nasal B.pertussis DNA PCR NOT DETECTED 09/25/20 12:25 Nasal C.pneumoniae (PCR) NOT DETECTED 09/25/20 12:25 Nacho Human Metapneumo PCR NOT DETECTED 09/25/20 12:25 Nasal M.pneumoniae (PCR) NOT DETECTED 09/25/20 12:25 Nasal SARS-CoV-2 (PCR) NOT DETECTED 09/25/20 12:25 Stl C. diff Tox B Gene POSITIVE (NEGATIVE) A* 09/19/20 15:04 Urine Opiates Screen NEGATIVE (NEGATIVE) 09/20/20 06:50 Ur Oxycodone Screen POSITIVE (NEGATIVE) H 09/20/20 06:50 Urine Methadone Screen NEGATIVE (NEGATIVE) 09/20/20 06:50 Ur Propoxyphene Screen NEGATIVE (NEGATIVE) 09/20/20 06:50 Ur Barbiturates Screen NEGATIVE (NEGATIVE) 09/20/20 06:50 Ur Tricyclics Screen NEGATIVE (NEGATIVE) 09/20/20 06:50 Ur Phencyclidine Scrn NEGATIVE (NEGATIVE) 09/20/20 06:50 Ur Amphetamine Screen NEGATIVE (NEGATIVE) 09/20/20 06:50 U Methamphetamines Scrn NEGATIVE (NEGATIVE) 09/20/20 06:50 U Benzodiazepines Scrn NEGATIVE (NEGATIVE) 09/20/20 06:50 Urine Cocaine Screen NEGATIVE (NEGATIVE) 09/20/20 06:50 U Cannabinoids Screen POSITIVE (NEGATIVE) H 09/20/20 06:50 Ref Lab Test Result REPORT 09/19/20 15:06 Blood Type A POSITIVE 09/21/20 07:50 Blood Type Recheck A POSITIVE 09/21/20 11:54 Antibody Screen NEGATIVE 09/21/20 07:50 Crossmatch IS Only See Detail 09/21/20 07:50 - Procedures Procedures: Procedures EXCISION OF DUODENUM, ENDO, DIAGN (03/10/16) EXCISION OF ESOPHAGOGASTRIC JUNCTION, ENDO, DIAGN (04/18/19) EXCISION OF LOWER ESOPHAGUS, ENDO, DIAGN (03/10/16) EXCISION OF SIGMOID COLON, ENDO (04/18/19) EXCISION OF SIGMOID COLON, ENDO, DIAGN (12/17/14) OTHER OPEN INCISIONAL HERNIA REPAIR WITH GRAFT OR PROSTHESIS (12/14/13)
[2020-09-28] MEDS: PHENOL THROAT SPRAY 177 ML MM PRN (14:31)
[2020-09-28] MEDS: NORTRIPTYLINE 25 MG CAPSULE PO SCH (21:47)
[2020-09-28] MEDS: traZODone 50 MG TABLET PO SCH (21:47)
[2020-09-29] MEDS: SODIUM CHLORIDE FLUSH 0.9% 10 ML SYRINGE IVP SCH ×3 (00:52→16:45)
[2020-09-29 05:29] LABS: HCT - HEMATOCRIT 31.3 % (42.0-52.0); HGB - HEMOGLOBIN 9.6 g/dL (14.0-18.0); MEAN CORPUSCULAR HEMOGLOBIN 27.1 pg (27.0-31.0); MEAN CORPUSCULAR HGB CONC 30.7 g/dL (32.0-36.0); MEAN CORPUSCULAR VOLUME 88.4 fL (80.0-94.0); MEAN PLATELET VOLUME 9.4 fL (7.4-11.4); RED BLOOD COUNT 3.54 10^6/uL (4.70-6.10); RED CELL DISTRIBUTION WIDTH 16.5 % (12.0-15.0); WHITE BLOOD COUNT 12.6 x10^3/uL (4.8-10.8)
[2020-09-29] MEDS: PHENOL THROAT SPRAY 177 ML MM PRN (05:31)
[2020-09-29] MEDS: ZINC OXIDE 20% OINT 30 GM TUBE TOP PRN (05:31)
[2020-09-29] MEDS: oxyCODONE 5 MG TABLET PO PRN ×3 (05:31→20:00)
[2020-09-29] MEDS: GABAPENTIN 100 MG CAPSULE PO SCH ×3 (05:34→21:44)
[2020-09-29 05:36] LABS: CALCIUM 8.6 mg/dL (8.5-10.3); MAGNESIUM 1.7 mg/dL (1.7-2.8); POTASSIUM 3.9 mmol/L (3.5-5.0)
[2020-09-29] MEDS: SUCRALFATE 1 GM/10 ML UDC PO SCH ×4 (06:18→21:44)
[2020-09-29] MEDS: PANTOPRAZOLE 40 MG TABLET PO SCH ×2 (06:18→15:52)
[2020-09-29] MEDS: FORMOTEROL FUMARATE NEB 20 MCG/2 ML INH SCH ×3 (07:08→20:25)
[2020-09-29] MEDS: BUDESONIDE 0.5 MG/2 ML NEB INH SCH ×3 (07:08→20:25)
[2020-09-29] MEDS: SACCHAROMYCES BOULARDII 250 MG CAPSULE PO SCH ×2 (09:27→16:44)
[2020-09-29] MEDS: carvediloL 12.5 MG TABLET PO SCH ×2 (09:28→21:15)
[2020-09-29] MEDS: FOLIC ACID 1 MG TABLET PO SCH (09:28)
[2020-09-29] MEDS: THIAMINE 100 MG TABLET PO SCH (09:28)
[2020-09-29] MEDS: VANCOMYCIN 125 MG CAPSULE PO SCH ×4 (09:28→21:14)
[2020-09-29] MEDS: FERROUS SULFATE 325 MG TABLET PO SCH ×2 (09:28→16:44)
[2020-09-29] MEDS: MAGNESIUM OXIDE 400 MG TABLET PO SCH (09:28)
[2020-09-29] MEDS: SCOPOLAMINE PATCH TOP SCH (09:29)
[2020-09-29] MEDS: polyethylene glycoL 3350 17 GM PACKET PO SCH (11:37)
--- NOTE | 2020-09-29 13:01 | Discharge Plan ---
Discharge Plan Problem Reviewed?: Yes Disposition: Home, Self Care Condition: Fair Prescriptions: Ferrous Sulfate [Feosol] 325 mg PO DAILY #30 tablet Magnesium Citrate 100 mg PO DAILY #7 cap Nortriptyline [Pamelor] 50 mg PO QPM #30 cap Petrolatum,White [Skin Protectant] 1 diaph TP BID PRN #1 tub PRN Reason: Diaper Rash Vancomycin [Vancocin] 125 mg PO QID #6 cap Diet: Regular Activity Restrictions: Activity as Tolerated Shower Restrictions: No Assistance Devices: [facility] Concerns: You were admitted to the hospital with diarrhea which was from an infection called [place]. It has slowly improved and there are just a few more doses of the oral antibiotic pills to take. You are also on new iron replacement therapy for iron-deficiency anemia and magnesium supplement and a sleeping sedative pill. These prescriptions were all electronically sent to your [facility] pharmacy in [place]. Please follow the list of medications to take that are listed here. There will be help for you at your home from your sister and caregivers, arranged by [facility]. Please do not go back to the habit of binging alcohol drinking. You should schedule a hospital follow-up appointment with your Primary Care Provider in 1 to 2 weeks. Plan of Treatment: As above. Care Goals: Improvement in symptoms and stabilization are the goals. Assessment: The patient understands the plan. These written instructions are provided to the patient as a reminder. Additional Instructions or Follow Up instructions: If you have new or worsening symptoms, call your PCP for advice or come to the ER. No Smoking: If you smoke, Please STOP! Call for help. Follow-up with: aJylene Joel DO [Provider Admit Priv/Credential] -
--- NOTE | 2020-09-29 13:20 | DISCHARGE SUMMARY ---
Discharge Summary Discharge Date: 09/29/20 Discharging Provider: Dr Nicole Short Primary Care Provider: Dr Jaylene Joel Code Status: Do Not Attempt Resuscitation Condition at Discharge: Fair Discharge Disposition: 01 Home, Self Care - ALLERGIES Allergies/Adverse Reactions: Allergies Allergy/AdvReac Type Severity Reaction Status Date / Time coconut oil AdvReac Intermediate Nausea Verified 09/19/20 14:44 - MEDICATIONS Home Medications: Ambulatory Orders Medication Instructions Recorded Confirmed Carvedilol [Coreg] 50 mg PO BID 09/19/20 09/19/20 Gabapentin [Neurontin] 200 mg PO TID 09/19/20 09/19/20 hydrALAZINE [Apresoline] 50 mg PO TID 09/19/20 09/20/20 Budesonide/Formoterol Fumarate 2 puffs INH BID 09/20/20 09/20/20 [Symbicort 160-4.5 Mcg Inhaler] Docusate Sodium 100Mg Capsule 100 mg PO BID 09/20/20 09/20/20 [Colace 100Mg Capsule] Ipratropium/Albuterol [Duoneb] 3 ml INH Q6H 09/20/20 09/20/20 Magnesium Oxide [Mag Ox] 400 mg PO BID 09/20/20 09/20/20 Pantoprazole [Protonix] 40 mg PO BID 09/20/20 09/20/20 Senna [Senokot] 17.2 mg PO BID 09/20/20 09/20/20 Sevelamer [Renagel] 800 mg PO TID 09/20/20 09/20/20 polyethylene glycoL 3350 17 gm PO DAILY 09/20/20 09/20/20 [Polyethylene Glycol 3350] Ferrous Sulfate [Feosol] 325 mg PO DAILY #30 tablet 09/29/20 Magnesium Citrate 100 mg PO DAILY #7 cap 09/29/20 Nortriptyline [Pamelor] 50 mg PO QPM #30 cap 09/29/20 Petrolatum,White [Skin Protectant] 1 diaph TP BID PRN #1 tub 09/29/20 Vancomycin [Vancocin] 125 mg PO QID #6 cap 09/29/20 - LABS Result Diagrams: 09/29/20 05:15 09/29/20 05:15
[2020-09-29] MEDS ORDERED: SODIUM CHLORIDE 0.9% 500 ML IV ONE (14:29)
--- NOTE | 2020-09-29 14:33 | PROVIDER PROGRESS NOTE ---
Assessment/Plan - Problem List (1) Orthostatic dizziness Assessment/Plan: Patient's diarrhea has stopped about 3 days ago, he had no BMs for 2 days, today he has had 2 bowel movements and with the second 1 he had dizziness and nausea and a low blood pressure. This sounds like a vasovagal event. His discharge today was canceled. IV fluids are started. We will check orthostatic vital signs every shift. Follow BMP, Mg and Po4 (2) Generalized weakness Assessment/Plan: He has been participating intermittently with PT withn plan to be DCh home (with his sister or his own home), however for 2 days he refuses to get OOB to work with PT and tells his RN: claims the doctor told him he "does not have to get OOB until Tue". I went in with his RN yesterday, to have a witness, and explained why he does have to get OOB and does have to exercise with PT, since his goal was to go home, and not to a SNF. He responded that he was answering "he will get up day, not Tuesday", and apologized. He also is saying today that his sister told him by phone that she will not help him after discharge because "she is retired". I passed this info on to to confirm that he will have help after Dch and where is Dch. I suspect his cognitive impairment added to this confusion. The RN also reported that he asks for his Morphine and says "I will get OOB only if I get my Morphine". I stopped the Morphine order entirely 2 days ago as there is no distress or severe pain. (3) Cognitive deficits Assessment/Plan: As per Hx (4) C. difficile colitis Assessment/Plan: Improving, he is nearing the completion of his course of p.o. Vanco, has 1.5 days of Vanco left Today he had 2 formed BMs. It was after the second one he was dizzy and may have had a vasovagal event, causing nausea and low BP. His DCh today was cancelled (5) Chronic anemia Assessment/Plan: His Hgb has been stable for 4 days. Nate Garrett called back on 09/26, with GI on the phone,since we requested a poss transfer for EGD due to heme pos stools, and I discussed the entire case. The GI specialist advised that no EGD is needed if he is not having melena or coffee ground emesis, since the Hgb has been stable for 4 days. (6) Heme positive stool Assessment/Plan: The GI specialist from [facility] recommended PPI bid (which he has been on em pirically) and oral Sucralfate liquid, which I added on 09/26. No transfer was needed for endoscopy, per the GI specialist. If he re-bleeds, GI said that Thoracic Surgery at [facility] would need to be contacted for transfer and to undergo EGD, not GI. We cancelled the repeat guaic order. (7) Chronic atrial fibrillation Assessment/Plan: Heart rate is controlled on current meds Coumadin stopped when heme (+) stool resulted and when Hgb dropped enough to n eed a transfusion. Plan would be to remain off Coumadin for 1 month, resume if Hgb and BMs are stable. (8) Chronic pain disorder Assessment/Plan: Controlled. Continue pain meds as needed, but we have stopped iv Morphine after tapering its frequency. (9) Hypertension Assessment/Plan: Stable on current meds and management, until the orthostasis this morning. 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 He was home for about 1 week and then developed the diarrhea that caused this admission. - Current Meds Current Meds: Current Medications Generic Name Dose Route Start Last Admin Trade Name Freq PRN Reason Stop Dose Admin Acetaminophen 650 mg 09/19/20 18:44 09/28/20 00:38 Acetaminophen 325 Mg Tablet PO 650 mg Q4HR PRN Administration Pain 1 to 4 Albuterol/Ipratropium 3 ml 09/19/20 22:26 09/25/20 07:57 Ipratropium/Albuterol 3 Ml Neb INH 3 ml Q4HR PRN Administration Wheezing Budesonide 0.5 mg 09/20/20 19:00 09/29/20 11:42 Budesonide 0.5 Mg/2 Ml Neb INH Not Given RTBID REBECCA Carvedilol 25 mg 09/19/20 23:00 09/29/20 09:28 Carvedilol 12.5 Mg Tablet PO 25 mg BID REBECCA Administration Ferrous Sulfate 325 mg 09/20/20 17:00 09/29/20 09:28 Ferrous Sulfate 325 Mg Tablet PO 325 mg BIDWM REBECCA Administration Folic Acid 1 mg 09/20/20 09:00 09/29/20 09:28 Folic Acid 1 Mg Tablet PO 1 mg DAILY REBECCA Administration Formoterol Fumarate 20 mcg 09/20/20 19:00 09/29/20 11:42 Formoterol Fumarate Neb 20 Mcg/2 Ml INH Not Given RTBID REBECCA Gabapentin 200 mg 09/20/20 06:00 09/29/20 14:19 Gabapentin 100 Mg Capsule PO 200 mg TID REBECCA Administration Magnesium Oxide 400 mg 09/27/20 10:00 09/29/20 09:28 Magnesium Oxide 400 Mg Tablet PO 400 mg DAILYWM REBECCA Administration Multi-Ingredient Ointment 1 applic 09/19/20 20:47 09/29/20 05:31 Zinc Oxide 20% Oint 30 Gm Tube TOP 1 applic PRN PRN Administration Skin Care Nortriptyline HCl 50 mg 09/20/20 21:00 09/28/20 21:47 Nortriptyline 25 Mg Capsule PO 50 mg QPM REBECCA Administration Ondansetron HCl 4 mg 09/19/20 18:44 09/25/20 12:42 Ondansetron 4 Mg/2 Ml Vial IVP 4 mg Q6HR PRN Administration Nausea / Vomiting Oxycodone HCl 5 mg 09/19/20 18:44 09/29/20 11:50 Oxycodone 5 Mg Tablet PO 5 mg Q4HR PRN Administration Pain 5 to 7 Pantoprazole Sodium 40 mg 09/20/20 16:00 09/29/20 06:18 Pantoprazole 40 Mg Tablet PO 40 mg BIDAC REBECCA Administration Phenol/Menthol 2 sprays 09/28/20 12:01 09/29/20 05:31 Phenol Throat [place] 177 Ml MM 2 sprays Q2HR PRN Administration Throat Pain Polyethylene Glycol 17 gm 09/28/20 09:00 09/29/20 11:37 Polyethylene Glycol 3350 17 Gm Packet PO Not Given DAILY REBECCA Saccharomyces Boulardii 500 mg 09/23/20 10:30 09/29/20 09:27 Saccharomyces Boulardii 250 Mg Capsule PO 500 mg BIDWM REBECCA Administration Scopolamine HBr 1 patch 09/23/20 10:00 09/29/20 09:29 Scopolamine Patch TOP 1 patch Q3D REBECCA Administration Sodium Chloride 10 ml 09/19/20 18:44 09/27/20 09:53 Sodium Chloride Flush 0.9% 10 Ml Syringe IVP 10 ml PRN PRN Administration NEEDED PER PROVIDER ORDERS Sodium Chloride 10 ml 09/20/20 01:00 09/29/20 09:29 Sodium Chloride Flush 0.9% 10 Ml Syringe IVP 10 ml 0100,0900,1700 REBECCA Administration Sucralfate 1 gm 09/26/20 16:00 09/29/20 11:41 Sucralfate 1 Gm/10 Ml Udc PO 1 gm 0700,1100,1600,2200 REBECCA Administration Thiamine HCl 100 mg 09/20/20 09:00 09/29/20 09:28 Thiamine 100 Mg Tablet PO 100 mg DAILY REBECCA Administration Throat Lozenges 1 lozenge 09/28/20 12:01 09/28/20 14:32 Benzocaine/Menthol Lozenge MM 1 lozenge Q2HR PRN Administration Throat pain Trazodone HCl 50 mg 09/20/20 21:00 09/28/20 21:47 Trazodone 50 Mg Tablet PO 50 mg QPM REBECCA Administration Vancomycin HCl 125 mg 09/19/20 21:00 09/29/20 14:19 Vancomycin 125 Mg Capsule PO 125 mg QID REBECCA Administration - Lab Result Fish Bone Diagrams: 09/29/20 05:15 09/29/20 05:15 - Additional Planning My Orders: My Active Orders 09/29/20 08:42 Miscellaenous Nursing Order [RC] ONCE 09/29/20 14:29 0.9% NS 500ML BOLUS X1 Sodium Chloride 0.9% [Normal Saline 0.9%] 500 ml IV ONCE 09/29/20 15:00 D5.9NS W/20 MEQ KCL @ 83.333 mls/hr D5ns W/20 Meq KCl 1,000 ml IV 83.333 mls/hr Subjective - Subjective Patient Reports: Dizzines (THE PATIENT WAS ALl READY TO BE DISCHARGED AND WENT TO THE BATHROOM, BECAME DIZZY AND NEARLY FELL WHEN STANDING UP FROM COMMODE, he started to c/o nausea, BP siting was 116 systolic, several hours earlier BP was 150) Objective Vital Signs: Vital Signs - 24 hr 09/28/20 09/28/20 09/29/20 15:42 20:45 00:52 Temperature 36.8 C 36.4 C L Heart Rate 69 Heart Rate [ 69 69 Brachial] Respiratory 20 20 18 Rate Blood Pressure 150/68 H 150/77 H [Right Brachial artery] O2 Saturation 97 96 09/29/20 09/29/20 09/29/20 07:10 07:58 09:15 Temperature 36.5 C Heart Rate 66 Heart Rate [ 72 74 Brachial] Respiratory 16 18 Rate Blood Pressure 159/65 H 143/68 H [Right Brachial artery] O2 Saturation 96 09/29/20 09/29/20 14:01 14:25 Temperature 36.4 C L Heart Rate Heart Rate [ 83 86 Brachial] Respiratory 18 Rate Blood Pressure 128/64 116/68 [Right Brachial artery] O2 Saturation 94 Oxygen O2 Source Nasal cannula I&O (Last 24 Hrs): Intake and Output Totals x24h 09/27/20 09/28/20 09/29/20 23:59 23:59 23:59 Intake Total 1830 610 660 Output Total 1950 2100 725 Balance -120 -1490 -65 General: Alert, Oriented x3, Other (Ashen/pale and nauseated) HEENT: Atraumatic, Mucous membr. moist/pink Neck: Supple, No JVD Neuro: Alert, Non Focal Cardiovascular: Regular rate, No murmurs Respiratory: No respiratory distress, Breath sounds nml Abdomen: Normal bowel sounds, Soft, No tenderness Extremities: No edema - Results Results: Laboratory Results WBC 12.6 x10^3/uL (4.8-10.8) H 09/29/20 05:15 RBC 3.54 10^6/uL (4.70-6.10) L 09/29/20 05:15 Hgb 9.6 g/dL (14.0-18.0) L 09/29/20 05:15 Hct 31.3 % (42.0-52.0) L 09/29/20 05:15 MCV 88.4 fL (80.0-94.0) 09/29/20 05:15 MCH 27.1 pg (27.0-31.0) 09/29/20 05:15 MCHC 30.7 g/dL (32.0-36.0) L 09/29/20 05:15 RDW 16.5 % (12.0-15.0) H 09/29/20 05:15 Plt Count 413 10^3/uL (130-450) 09/29/20 05:15 MPV 9.4 fL (7.4-11.4) 09/29/20 05:15 Neut # (Auto) 9.6 10^3/uL (1.5-6.6) H 09/26/20 08:22 Lymph # (Auto) 1.0 10^3/uL (1.5-3.5) L 09/26/20 08:22 [place] # (Auto) 0.7 10^3/uL (0.0-1.0) 09/26/20 08:22 Eos # (Auto) 0.4 10^3/uL (0.0-0.7) 09/26/20 08:22 Baso # (Auto) 0.1 10^3/uL (0.0-0.1) 09/26/20 08:22 Absolute Nucleated RBC 0.00 x10^3/uL 09/26/20 08:22 Nucleated RBC % 0.0 /100WBC 09/26/20 08:22 PT 19.3 secs (9.9-12.6) H 09/22/20 06:23 INR 1.8 (0.8-1.2) H 09/22/20 06:23 Sodium 136 mmol/L (135-145) 09/29/20 05:15 Potassium 3.9 mmol/L (3.5-5.0) 09/29/20 05:15 Chloride 97 mmol/L (101-111) L 09/29/20 05:15 Carbon Dioxide 29 mmol/L (21-32) 09/29/20 05:15 Anion Gap 10.0 (6-13) 09/29/20 05:15 BUN 8 mg/dL (6-20) 09/29/20 05:15 Creatinine 1.0 mg/dL (0.6-1.2) 09/29/20 05:15 Estimated GFR (MDRD) 76 (>89) L 09/29/20 05:15 Glucose 105 mg/dL (70-100) H 09/29/20 05:15 Estimat Average Glucose 126 mg/dL (70-100) H 09/20/20 07:11 Hemoglobin A1c % 6.0 % (4.27-6.07) 09/20/20 07:11 Lactic Acid 1.7 mmol/L (0.5-2.2) 09/19/20 15:06 Calcium 8.6 mg/dL (8.5-10.3) 09/29/20 05:15 Phosphorus 4.3 mg/dL (2.5-4.6) 09/26/20 08:22 Magnesium 1.7 mg/dL (1.7-2.8) 09/29/20 05:15 Iron 13 ug/dL (45-182) L 09/20/20 07:11 TIBC 164 ug/dL (250-450) L 09/20/20 07:11 % Saturation 8 % (20-50) L 09/20/20 07:11 Transferrin 117 mg/dL (180-329) L 09/20/20 07:11 Ferritin 344.2 ng/mL (23.9-336.2) H 09/20/20 07:11 Total Bilirubin 0.7 mg/dL (0.2-1.0) 09/25/20 13:38 AST < 10 IU/L (10-42) L 09/25/20 13:38 ALT 10 IU/L (10-60) 09/25/20 13:38 Alkaline Phosphatase 66 IU/L (42-121) 09/25/20 13:38 Total Protein 6.4 g/dL (6.7-8.2) L 09/25/20 13:38 Albumin 3.0 g/dL (3.2-5.5) L 09/25/20 13:38 Globulin 3.4 g/dL (2.1-4.2) 09/25/20 13:38 Albumin/Globulin Ratio 0.9 (1.0-2.2) L 09/25/20 13:38 Lipase 15 U/L (22-51) L 09/19/20 15:06 Urine Color DARK YELLOW 09/20/20 06:50 Urine Clarity CLEAR (CLEAR) 09/20/20 06:50 Urine pH 5.0 PH (5.0-7.5) 09/20/20 06:50 Ur Specific [place] 1.020 (1.002-1.030) 09/20/20 06:50 Urine Protein TRACE mg/dL (NEGATIVE) 09/20/20 06:50 Urine Glucose (UA) NEGATIVE mg/dL (NEGATIVE) 09/20/20 06:50 Urine Ketones NEGATIVE mg/dL (NEGATIVE) 09/20/20 06:50 Urine Occult Blood NEGATIVE (NEGATIVE) 09/20/20 06:50 Urine Nitrite NEGATIVE (NEGATIVE) 09/20/20 06:50 Urine Bilirubin NEGATIVE (NEGATIVE) 09/20/20 06:50 Urine Urobilinogen 0.2 (NORMAL) E.U./dL (NORMAL) 09/20/20 06:50 Ur Leukocyte Esterase NEGATIVE (NEGATIVE) 09/20/20 06:50 Ur Microscopic Review NOT INDICATED 09/20/20 06:50 Urine Culture Comments NOT INDICATED 09/20/20 06:50 Nasal Adenovirus (PCR) NOT DETECTED 09/25/20 12:25 Nasal B. parapertussis DNA (PCR) NOT DETECTED 09/25/20 12:25 Nasal Coronavir 229E PCR NOT DETECTED 09/25/20 12:25 Nasal Coronavir HKU1 PCR NOT DETECTED 09/25/20 12:25 Nasal Coronavir NL63 PCR NOT DETECTED 09/25/20 12:25 Nasal Coronavir OC43 PCR NOT DETECTED 09/25/20 12:25 Nasal Enterovir/Rhinovir PCR NOT DETECTED 09/25/20 12:25 Nasal Influenza B PCR NOT DETECTED 09/25/20 12:25 Nasal Influenza A PCR NOT DETECTED 09/25/20 12:25 Nasal Parainfluen 1 PCR NOT DETECTED 09/25/20 12:25 Nasal Parainfluen 2 PCR NOT DETECTED 09/25/20 12:25 Nasal Parainfluen 3 PCR NOT DETECTED 09/25/20 12:25 Nasal Parainfluen 4 PCR NOT DETECTED 09/25/20 12:25 Nasal RSV (PCR) NOT DETECTED 09/25/20 12:25 Nasal B.pertussis DNA PCR NOT DETECTED 09/25/20 12:25 Nasal C.pneumoniae (PCR) NOT DETECTED 09/25/20 12:25 Nacho Human Metapneumo PCR NOT DETECTED 09/25/20 12:25 Nasal M.pneumoniae (PCR) NOT DETECTED 09/25/20 12:25 Nasal SARS-CoV-2 (PCR) NOT DETECTED 09/25/20 12:25 Stl C. diff Tox B Gene POSITIVE (NEGATIVE) A* 09/19/20 15:04 Urine Opiates Screen NEGATIVE (NEGATIVE) 09/20/20 06:50 Ur Oxycodone Screen POSITIVE (NEGATIVE) H 09/20/20 06:50 Urine Methadone Screen NEGATIVE (NEGATIVE) 09/20/20 06:50 Ur Propoxyphene Screen NEGATIVE (NEGATIVE) 09/20/20 06:50 Ur Barbiturates Screen NEGATIVE (NEGATIVE) 09/20/20 06:50 Ur Tricyclics Screen NEGATIVE (NEGATIVE) 09/20/20 06:50 Ur Phencyclidine Scrn NEGATIVE (NEGATIVE) 09/20/20 06:50 Ur Amphetamine Screen NEGATIVE (NEGATIVE) 09/20/20 06:50 U Methamphetamines Scrn NEGATIVE (NEGATIVE) 09/20/20 06:50 U Benzodiazepines Scrn NEGATIVE (NEGATIVE) 09/20/20 06:50 Urine Cocaine Screen NEGATIVE (NEGATIVE) 09/20/20 06:50 U Cannabinoids Screen POSITIVE (NEGATIVE) H 09/20/20 06:50 Ref Lab Test Result REPORT 09/19/20 15:06 Blood Type A POSITIVE 09/21/20 07:50 Blood Type Recheck A POSITIVE 09/21/20 11:54 Antibody Screen NEGATIVE 09/21/20 07:50 Crossmatch IS Only See Detail 09/21/20 07:50 - Procedures Procedures: Procedures EXCISION OF DUODENUM, ENDO, DIAGN (03/10/16) EXCISION OF ESOPHAGOGASTRIC JUNCTION, ENDO, DIAGN (04/18/19) EXCISION OF LOWER ESOPHAGUS, ENDO, DIAGN (03/10/16) EXCISION OF SIGMOID COLON, ENDO (04/18/19) EXCISION OF SIGMOID COLON, ENDO, DIAGN (12/17/14) OTHER OPEN INCISIONAL HERNIA REPAIR WITH GRAFT OR PROSTHESIS (12/14/13)
[2020-09-29] MEDS: D5NS W/20 MEQ KCL 1,000 ML IV SCH (15:53)
[2020-09-29] MEDS: traZODone 50 MG TABLET PO SCH (21:14)
[2020-09-29] MEDS: NORTRIPTYLINE 25 MG CAPSULE PO SCH (21:14)
[2020-09-30] MEDS: SODIUM CHLORIDE FLUSH 0.9% 10 ML SYRINGE IVP SCH ×3 (00:55→17:12)
[2020-09-30] MEDS: oxyCODONE 5 MG TABLET PO PRN ×2 (00:58→17:11)
[2020-09-30] MEDS: D5NS W/20 MEQ KCL 1,000 ML IV SCH ×2 (04:07→14:40)
[2020-09-30] MEDS: GABAPENTIN 100 MG CAPSULE PO SCH ×3 (05:27→21:14)
[2020-09-30] MEDS: ZINC OXIDE 20% OINT 30 GM TUBE TOP PRN ×2 (05:32→21:13)
[2020-09-30 05:33] LABS: BASOPHILS % (AUTO) 0.3 %; EOSINOPHILS # (AUTO) 0.4 10^3/uL (0.0-0.7); EOSINOPHILS % (AUTO) 3.4 %; HCT - HEMATOCRIT 31.1 % (42.0-52.0); HGB - HEMOGLOBIN 9.7 g/dL (14.0-18.0); LYMPHOCYTES # (AUTO) 1.2 10^3/uL (1.5-3.5); LYMPHOCYTES % (AUTO) 9.7 %; MEAN CORPUSCULAR HGB CONC 31.2 g/dL (32.0-36.0); MEAN CORPUSCULAR VOLUME 89.6 fL (80.0-94.0); MEAN PLATELET VOLUME 9.4 fL (7.4-11.4); MONOCYTES # (AUTO) 0.7 10^3/uL (0.0-1.0); MONOCYTES % (AUTO) 5.2 %; NEUTROPHILS # (AUTO) 10.1 10^3/uL (1.5-6.6); NEUTROPHILS % (AUTO) 80.6 %; PLT - PLATELET COUNT 401 10^3/uL (130-450); RED BLOOD COUNT 3.47 10^6/uL (4.70-6.10); RED CELL DISTRIBUTION WIDTH 16.8 % (12.0-15.0); WHITE BLOOD COUNT 12.5 x10^3/uL (4.8-10.8)
[2020-09-30 05:47] LABS: CALCIUM 8.4 mg/dL (8.5-10.3); MAGNESIUM 1.6 mg/dL (1.7-2.8); POTASSIUM 4.1 mmol/L (3.5-5.0)
[2020-09-30] MEDS: SUCRALFATE 1 GM/10 ML UDC PO SCH ×4 (06:43→21:12)
[2020-09-30] MEDS: PANTOPRAZOLE 40 MG TABLET PO SCH ×2 (06:43→17:11)
[2020-09-30] MEDS: BUDESONIDE 0.5 MG/2 ML NEB INH SCH ×2 (08:09→19:00)
[2020-09-30] MEDS: FORMOTEROL FUMARATE NEB 20 MCG/2 ML INH SCH ×2 (08:09→19:00)
[2020-09-30] MEDS: MAGNESIUM OXIDE 400 MG TABLET PO SCH (09:06)
[2020-09-30] MEDS: carvediloL 12.5 MG TABLET PO SCH ×2 (09:06→21:08)
[2020-09-30] MEDS: SACCHAROMYCES BOULARDII 250 MG CAPSULE PO SCH ×2 (09:06→17:11)
[2020-09-30] MEDS: VANCOMYCIN 125 MG CAPSULE PO SCH ×4 (09:07→21:12)
[2020-09-30] MEDS: THIAMINE 100 MG TABLET PO SCH (09:07)
[2020-09-30] MEDS: FERROUS SULFATE 325 MG TABLET PO SCH ×2 (09:07→17:11)
[2020-09-30] MEDS: FOLIC ACID 1 MG TABLET PO SCH (09:07)
[2020-09-30] MEDS: ONDANSETRON 4 MG/2 ML VIAL IVP PRN (09:11)
[2020-09-30] MEDS: ACETAMINOPHEN 325 MG TABLET PO PRN ×2 (17:12→21:12)
--- NOTE | 2020-09-30 17:44 | PROVIDER PROGRESS NOTE ---
Subjective - Prog Note Date Prog Note Date: 09/30/20 Prog Note Time: 17:36 - Subjective Pt reports feeling: Improved Current Medications - Current Medications Current Medications: Active Medications Acetaminophen (Acetaminophen 325 Mg Tablet) 650 mg PO Q4HR PRN PRN Reason: Pain 1 to 4 Last Admin: 09/30/20 17:12 Dose: 650 mg Documented by: Albuterol/Ipratropium (Ipratropium/Albuterol 3 Ml Neb) 3 ml INH Q4HR PRN PRN Reason: Wheezing Last Admin: 09/25/20 07:57 Dose: 3 ml Documented by: Budesonide (Budesonide 0.5 Mg/2 Ml Neb) 0.5 mg INH RTBID [facility]BECCA Last Admin: 09/30/20 08:09 Dose: Not Given Documented by: Carvedilol (Carvedilol 12.5 Mg Tablet) 25 mg PO BID REBECCA Last Admin: 09/30/20 09:06 Dose: 25 mg Documented by: Ferrous Sulfate (Ferrous Sulfate 325 Mg Tablet) 325 mg PO BIDWM [facility]CCA Last Admin: 09/30/20 17:11 Dose: 325 mg Documented by: Folic Acid (Folic Acid 1 Mg Tablet) 1 mg PO DAILY [facility] Last Admin: 09/30/20 09:07 Dose: 1 mg Documented by: Formoterol Fumarate (Formoterol Fumarate Neb 20 Mcg/2 Ml) 20 mcg INH RTBID REBECCA Last Admin: 09/30/20 08:09 Dose: Not Given Documented by: Gabapentin (Gabapentin 100 Mg Capsule) 200 mg PO TID REBECCA Last Admin: 09/30/20 14:38 Dose: 200 mg Documented by: Potassium Chloride/Dextrose/Sod Cl (D5ns W/20 Meq Kcl) 1,000 mls @ 83.333 mls/hr IV .Q12H [facility] Last Admin: 09/30/20 14:40 Dose: 83.333 mls/hr Documented by: Magnesium Oxide (Magnesium Oxide 400 Mg Tablet) 400 mg PO DAILYWM REBECCA Last Admin: 09/30/20 09:06 Dose: 400 mg Documented by: Mineral Oil (Min Oil/Dimethicon/Coconut Oil 92 Gm Tube) 1 applic TOP PRN PRN PRN Reason: Skin Care Multi-Ingredient Ointment (Zinc Oxide 20% Oint 30 Gm Tube) 1 applic TOP PRN PRN PRN Reason: Skin Care Last Admin: 09/30/20 05:32 Dose: 1 applic Documented by: Nortriptyline HCl (Nortriptyline 25 Mg Capsule) 50 mg PO QPM [facility] Last Admin: 09/29/20 21:14 Dose: 50 mg Documented by: Ondansetron HCl (Ondansetron 4 Mg/2 Ml Vial) 4 mg IVP Q6HR PRN PRN Reason: Nausea / Vomiting Last Admin: 09/30/20 09:11 Dose: 4 mg Documented by: Oxycodone HCl (Oxycodone 5 Mg Tablet) 5 mg PO Q4HR PRN PRN Reason: Pain 5 to 7 Last Admin: 09/30/20 17:11 Dose: 5 mg Documented by: Pantoprazole Sodium (Pantoprazole 40 Mg Tablet) 40 mg PO BIDAC [facility] Last Admin: 09/30/20 17:11 Dose: 40 mg Documented by: Phenol/Menthol (Phenol Throat [place] 177 Ml) 2 sprays MM Q2HR PRN PRN Reason: Throat Pain Last Admin: 09/29/20 05:31 Dose: 2 sprays Documented by: Saccharomyces Boulardii (Saccharomyces Boulardii 250 Mg Capsule) 500 mg PO BIDWM [facility] Last Admin: 09/30/20 17:11 Dose: 500 mg Documented by: Scopolamine HBr (Scopolamine Patch) 1 patch TOP Q3D [facility] Last Admin: 09/29/20 09:29 Dose: 1 patch Documented by: Sodium Chloride (Sodium Chloride Flush 0.9% 10 Ml Syringe) 10 ml IVP PRN PRN PRN Reason: NEEDED PER PROVIDER ORDERS Last Admin: 09/27/20 09:53 Dose: 10 ml Documented by: Sodium Chloride (Sodium Chloride Flush 0.9% 10 Ml Syringe) 10 ml IVP 0100,0900,1700 [facility] Last Admin: 09/30/20 17:12 Dose: Not Given Documented by: Sucralfate (Sucralfate 1 Gm/10 Ml Udc) 1 gm PO 0700,1100,1600,2200 [facility] Last Admin: 09/30/20 17:12 Dose: 1 gm Documented by: Thiamine HCl (Thiamine 100 Mg Tablet) 100 mg PO DAILY [facility] Last Admin: 09/30/20 09:07 Dose: 100 mg Documented by: Throat Lozenges (Benzocaine/Menthol Lozenge) 1 lozenge MM Q2HR PRN PRN Reason: Throat pain Last Admin: 09/28/20 14:32 Dose: 1 lozenge Documented by: Trazodone HCl (Trazodone 50 Mg Tablet) 50 mg PO QPM [facility] Last Admin: 09/29/20 21:14 Dose: 50 mg Documented by: Vancomycin HCl (Vancomycin 125 Mg Capsule) 125 mg PO QID [facility] Stop: 09/30/20 21:00 Last Admin: 09/30/20 17:11 Dose: 125 mg Documented by: Carvedilol [Coreg] 50 mg PO BID 09/19/20 Gabapentin [Neurontin] 200 mg PO TID 09/19/20 hydrALAZINE [Apresoline] 50 mg PO TID 09/19/20 Budesonide/Formoterol Fumarate [Symbicort 160-4.5 Mcg Inhaler] 2 puffs INH BID 09/20/20 Docusate Sodium 100Mg Capsule [Colace 100Mg Capsule] 100 mg PO BID 09/20/20 Ipratropium/Albuterol [Duoneb] 3 ml INH Q6H 09/20/20 Magnesium Oxide [Mag Ox] 400 mg PO BID 09/20/20 Pantoprazole [Protonix] 40 mg PO BID 09/20/20 Senna [Senokot] 17.2 mg PO BID 09/20/20 Sevelamer [Renagel] 800 mg PO TID 09/20/20 polyethylene glycoL 3350 [Polyethylene Glycol 3350] 17 gm PO DAILY 09/20/20 Objective - Vital Signs/Intake & Output Reviewed Vital Signs: Yes Vital Signs: Vital Signs x48h Temp Pulse Resp BP BP Pulse Ox 09/30/20 16:00 36.6 C 71 20 158/72 H 97 09/30/20 12:04 36.5 C 66 18 145/63 H 93 Intake & Output: Intake & Output 09/27/20 09/28/20 09/29/20 09/30/20 23:59 23:59 23:59 23:59 Intake Total 5843 273 8655 2359.163 Output Total 2580 2100 765 1405 Balance -120 -1490 985 954.163 - Objective General Appearance: positive: No acute distress, Alert, Other (Disheveled white male, cooperative, communicative) Eyes Bilateral: positive: PERRL ENT: positive: No signs of dehydration Neck: positive: No JVD. negative: Stiff neck Respiratory: positive: No respiratory distress. negative: Wheezes, Rales, Rhonchi Cardiovascular: positive: Irregularly irregular. negative: Gallop/S4, Friction rub Abdomen: positive: Non-tender, No organomegaly, Nml bowel sounds, No distention Skin: positive: Warm, Dry Neurologic/Psychiatric: positive: Other Comments/Other: Seen by physical therapy: Pt transferring w/ CGA-SBA during today's session. Pt completing sup-sit transf er independently and STS transfer w/ FWW and CGA as pt allowing walker to tip posteriorly during transfer. Pt ambulating to chair in room and performing stand pivot w/ FWW and SBA. Pt continues to exhibit deficits in gait, transfers, balance and overall functional mobility. Pt may benefit from OOPT following d/c from hospital. - Lab Results Fish Bones: 09/30/20 05:23 09/30/20 05:23 Other Labs: Lab Results x24hrs 09/30/20 09/30/20 Range/Units 05:23 05:23 WBC 12.5 H (4.8-10.8) x10^3/uL RBC 3.47 L (4.70-6.10) 10^6/uL Hgb 9.7 L (14.0-18.0) g/dL Hct 31.1 L (42.0-52.0) % MCV 89.6 (80.0-94.0) fL MCH 28.0 (27.0-31.0) pg MCHC 31.2 L (32.0-36.0) g/dL RDW 16.8 H (12.0-15.0) % Plt Count 401 (130-450) 10^3/uL MPV 9.4 (7.4-11.4) fL Neut # (Auto) 10.1 H (1.5-6.6) 10^3/uL Lymph # (Auto) 1.2 L (1.5-3.5) 10^3/uL Davidson # (Auto) 0.7 (0.0-1.0) 10^3/uL Eos # (Auto) 0.4 (0.0-0.7) 10^3/uL Baso # (Auto) 0.0 (0.0-0.1) 10^3/uL Absolute Nucleated RBC 0.00 x10^3/uL Nucleated RBC % 0.0 /100WBC Sodium 141 (135-145) mmol/L Potassium 4.1 (3.5-5.0) mmol/L Chloride 105 (101-111) mmol/L Carbon Dioxide 27 (21-32) mmol/L Anion Gap 9.0 (6-13) BUN 7 (6-20) mg/dL Creatinine 1.0 (0.6-1.2) mg/dL Estimated GFR (MDRD) 76 L (>89) Glucose 131 H (70-100) mg/dL Calcium 8.4 L (8.5-10.3) mg/dL Magnesium 1.6 L (1.7-2.8) mg/dL ABX Reporting Has patient been on IV antibiotics over the past 48 hours?: No Assessment/Plan - Problem List (1) C. difficile colitis Impression: Patient's diarrhea has stopped about 4 days ago, he had no BMs for 3 days, 09/29 he had had 2 bowel movements and with the second 1 he had dizziness and nausea and a low blood pressure. This sounds like a vasovagal event as such his discharge was cancelled so he could get fluids and monitor his orthostatic BP. IV fluids are started. Even after fluids, he continues to be orthostatic. But asymptomatic today. Magnesium was normal yesterday but low today. Today, I feel that he is back to baseline. He could go home if it was not for disposition. Other than encouraging p.o. intake, and encouraging a regular diet, not much more can be done. When supine his blood pressure is elevated. (2) Generalized weakness Assessment/Plan: He has been participating intermittently with PT withn plan to be [facility] home (with his sister or his own home), however for 2 days he refuses to get OOB to work with PT and tells his RN: claims the doctor told him he "does not have to get OOB until Tue". On 09/29 the hospitalist of the day went in with his RN yester day, to have a witness, and explained why he did have to get OOB and does have to exercise with PT, since his goal was to go home, and not to a SNF. He responded that he was answering "he will get up one day, not Tuesday", and apologized. He also is saying today that his sister told him by phone that she will not help him after discharge because "she is retired". Hospitalist passed on this info on to SW to confirm that he will have help after Dch and where is Dch. It was suspected his cognitive impairment added to this confusion. The RN also reported that he asks for his Morphine and says "I will get OOB only if I get my Morphine". Morphine order was stopped entirely 3 days ago as there is no distress or severe pain. We were getting ready to discharge this patient home today, when the sister keeps on insisting that she really cannot take care of him. Long conversation was had between her and social work. Also with the patient. The patient is considering possible placement to adult family home or assisted living facility. But his sister is now reconsidering that and is willing to take him home as long as he can stand, and help himself. She also plans on hiring somebody 8 hours a day. If that can happen she will take him home. But she will come by tomorrow at 11 AM, sit down with him, sit down with social work to have this conversation [id number] to make sure we are all on the same page. (3) Cognitive deficits Assessment/Plan: As per Hx (4) C. difficile colitis Assessment/Plan: He finishes 10 days of vancomycin at 2100 tonight. As such it would be discontinued (5) Chronic anemia Assessment/Plan: His Hgb has been stable for 4 days. Nate Garrett called back on 09/26, with GI on the phone,since we requested a poss transfer for EGD due to heme pos stools, and I discussed the entire case. The GI specialist advised that no EGD is needed if he is not having melena or coffee ground emesis, since the Hgb has been stable for 4 days. (6) Heme positive stool Assessment/Plan: The GI specialist from [facility] recommended PPI bid (which he has been on empirically) and oral Sucralfate liquid, which I added on 09/26. No transfer was needed for endoscopy, per the GI specialist. If he re-bleeds, GI said that Thoracic Surgery at [facility] would need to be contacted for transfer and to undergo EGD, not GI. We cancelled the repeat guaic order. (7) Chronic atrial fibrillation Assessment/Plan: Heart rate is controlled on current meds Coumadin stopped when heme (+) stool resulted and when Hgb dropped enough to need a transfusion. Plan would be to remain off Coumadin for 1 month, resume if Hgb and BMs are stable. (8) Chronic pain disorder Assessment/Plan: Controlled. Continue pain meds as needed, but we have stopped iv Morphine after tapering its frequency. (9) Hypertension Assessment/Plan: Stable on current meds and management, until the orthostasis this morning. 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 He was home for about 1 week and then developed the diarrhea that caused this admission.
[2020-09-30] MEDS: traZODone 50 MG TABLET PO SCH (21:12)
[2020-09-30] MEDS: NORTRIPTYLINE 25 MG CAPSULE PO SCH (21:12)
[2020-10-01] MEDS: oxyCODONE 5 MG TABLET PO PRN (01:57)
[2020-10-01] MEDS: PHENOL THROAT SPRAY 177 ML MM PRN (01:58)
[2020-10-01] MEDS: D5NS W/20 MEQ KCL 1,000 ML IV SCH ×2 (01:58→13:10)
[2020-10-01] MEDS: SODIUM CHLORIDE FLUSH 0.9% 10 ML SYRINGE IVP SCH ×2 (01:58→08:53)
[2020-10-01] MEDS: SUCRALFATE 1 GM/10 ML UDC PO SCH ×2 (05:53→10:45)
[2020-10-01] MEDS: GABAPENTIN 100 MG CAPSULE PO SCH ×2 (05:53→13:10)
[2020-10-01] MEDS: PANTOPRAZOLE 40 MG TABLET PO SCH (05:54)
[2020-10-01] MEDS: ZINC OXIDE 20% OINT 30 GM TUBE TOP PRN (05:54)
[2020-10-01] MEDS: FORMOTEROL FUMARATE NEB 20 MCG/2 ML INH SCH (07:59)
[2020-10-01] MEDS: BUDESONIDE 0.5 MG/2 ML NEB INH SCH (07:59)
[2020-10-01] MEDS: carvediloL 12.5 MG TABLET PO SCH (08:53)
[2020-10-01] MEDS: FERROUS SULFATE 325 MG TABLET PO SCH (08:53)
[2020-10-01] MEDS: MAGNESIUM OXIDE 400 MG TABLET PO SCH (08:53)
[2020-10-01] MEDS: FOLIC ACID 1 MG TABLET PO SCH (08:53)
[2020-10-01] MEDS: THIAMINE 100 MG TABLET PO SCH (08:53)
[2020-10-01] MEDS: SACCHAROMYCES BOULARDII 250 MG CAPSULE PO SCH (08:53)
--- NOTE | 2020-10-01 11:03 | Discharge Plan ---
Discharge Plan Problem Reviewed?: Yes Disposition: Home, Self Care Condition: Fair Prescriptions: Ferrous Sulfate [Feosol] 325 mg PO DAILY #30 tablet Magnesium Citrate 100 mg PO DAILY #7 cap Nortriptyline [Pamelor] 50 mg PO QPM #30 cap Petrolatum,White [Skin Protectant] 1 diaph TP BID PRN #1 tub PRN Reason: Diaper Rash Diet: Diabetic Activity Restrictions: Activity as Tolerated Shower Restrictions: No Driving Restrictions: Yes (no driving) Assistance Devices: Wheelchair, Walker, Other (hospital bed per [employer]) Weight Bearing: Full Weight Instruction Topics: Iron tablets capsules extended-release tablets, Nortriptyline capsules, Vancomycin capsules, Magnesium Citrate oral solution, Miconazole Petrolatum Zinc Oxide ointment, Hypertension Control, Diabetes Care Home Complications, Blood Sugar Check, Diabetes Healthy Meals, Diabetes Carbs, Clostridium Difficile Infec, COVID-19 [facility], COVID-19 [facility] Department Statement, Flu and Cold: Nutrition, Prevention and Treatment Tips Health Concerns: You were admitted to the hospital with diarrhea which was from an infection called C.diff. It has slowly improved and you have completed your treatment for that after 10 days. You are also on new iron replacement therapy for iron- deficiency anemia and magnesium supplement and a sleeping sedative pill. These prescriptions were all electronically sent to your [facility] pharmacy in [place]. Please follow the list of medications to take that are listed here. There will be help for you at your home from your sister and caregivers, arranged by [facility]. Please do not go back to the habit of binging alcohol drinking. You should schedule a hospital follow-up appointment with your Primary Care Provider in 1 to 2 weeks. Your sister has stated that if you are not able to stand, and help your careg royer dress you and feed you, you may not be able to stay at home. If you have to return to the hospital, the next step would be to place you in an assisted living facility or intermediate. You have had this conversation with your sister and social work here at the hospital. Plan of Treatment: As above. Care Goals: Improvement in symptoms and stabilization are the goals. Assessment: The patient understands the plan. These written instructions are provided to the patient as a reminder. Additional Instructions or Follow Up instructions: If you have new or worsening symptoms, call your PCP for advice or come to the ER. No Smoking: If you smoke, Please STOP! Call for help. Follow-up with: Jaylene Joel DO [Provider Admit Priv/Credential] -
--- NOTE | 2020-10-01 15:50 | DISCHARGE SUMMARY ---
Discharge Summary Admit Date: 09/19/20 Discharge Date: 10/01/20 Discharging Provider: Kaitlyn Ortiz MD Primary Care Provider: MD Trudy Code Status: Do Not Attempt Resuscitation Condition at Discharge: Fair Discharge Disposition: 01 Home, Self Care - DIAGNOSES Discharge Diagnoses with Status of Each Condition: 1. C. difficile colitis present on admission 2. Generalized weakness and deconditioning due to illness 3. Cognitive deficits 4. Chronic anemia 5. Heme positive stool 6. Chronic atrial fibrillation 7. Chronic pain disorder 8. Hypertension 10. Type 2 diabetes mellitus, controlled, with long-term use of insulin 11. COPD without exacerbation 12. History of spontaneous rupture of esophagus 13. Orthostatic dizziness 14. Caldwell's esophagus 15. Loculated left pleural effusion, chronic - HPI History of Present Illness: Past medical history of Caldwell's esophagus. He has had a Johana fundoplication in the past. Presented in April 2020 with substernal chest pressure radiating to the left side and down his right back associated with shortness of breath and feeling like his throat was closing up. There was no history of vomiting. He was ill-appearing and appeared agitated and he received some labetalol due to suspicion of aortic dissection. He could not lay still for the CT. Then he was intubated for airway protection when he pulled out his IVs. He had subcutaneous emphysema. CT angiogram of the chest abdomen and pelvis showed extensive mediastinal, upper chest, neck subcutaneous emphysema likely due to distal esophageal rupture. Impacted foreign body, neoplasm, incarcerated hiatal hernia or peptic ulcer disease were in the differential.. He was transferred to [facility]. He was there from April until July. Interventions included multiple intubations, extubations, in and out of the ICU. ATN resulting in hemodialysis. An esophageal stent. He did have liquid stool while at [facility]. There is no mention of C. difficile being checked.After leaving [facility] he was transferred to [facility] and was just discharged September 11. His chief complaint is that of weakness, diarrhea for the last week, and increasing confusion. At baseline he appears to have a cognitive deficit. That cognitive deficit was not documented on previous exams in our facility before he was transferred to [facility]. In evaluation with the emergency room physician showed an alert oriented x1, pale gentleman. No respiratory distress. A distended abdomen with a well-healed ex lap. Diminished bowel sounds. No tenderness noted on exam. He could not tell me the date, time or situation. Was able to follow commands. Temperature was 36.9. Heart rate 77. Respirations 16. Blood pressure 125/62 and 95% O2 sats. White cell count was 18,000, BMP was normal. Stool C. difficile positive. CT of the abdomen and pelvis with contrast shows him to have a stool ball in his rectum. He was disimpacted in the emergency room. CT also shows mild colitis. In addition to the bowel findings, he has a loculated left lung area. However the se were present on previous films in the past. This is not a new finding. I was able to speak to his sister late in the evening. She states that he is always had some developmental problems. She says the entire family has some type of attention deficit disorder. But something definitely happened since April. He has had severe cognitive deficit since the April admission and multiple back and forth between the ICU at [facility] and with dialysis at [facility]. Back to [facility]. She was already his caregiver. He moved here from [place] about 12 years ago and he lived in his own trailer down the street from her. 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 He was able to dress himself, feed himself, was independent with self hygiene, etc. There were times he would get frustrated and be overwhelmed and he just did not want to do it that day. He also is an alcoholic. She also warns me that he can be a complete "ass hole" when he gets frustrated and angry. He stopped drinking the day he had his esophageal perforation. He stopped smoking about 11 or 12 years ago. When he was discharged from [facility], his sister was very alarmed because she did not feel that he was ready to come home. This was a man who was walking and talking normally in April. And now he was so weak he could not walk. When he was discharged from [facility], they had to have people physically lift him into his house because he was unable to walk into his house. [facility] did not discharge him with home health or home health physical therapy. When they finally got him into the house, they basically stopped at a lounge chair in the living room and he has been there since. He has had continuous diarrhea. She is very fanatical about keeping his bottom clean because she is afraid of bedsores. She was constantly with him, changing his diaper, keeping his bottom clean. He tried to get out of the chair a few times and would fall and had to be taken back to the chair either by neighbors or EMS. He was eating okay, able to eat and drink without nausea and vomiting. She says that he was faithful with taking his medications. He did not have fever, chills. She was frantically calling his new primary care provider office at [facility] on [address], trying to get help, but he is establishing himself with a new provider that he hasn't seen and needed coumadin followup, and they finally just told her to take him to the emergency room. That the physician's name is Dr. Joel. She is not sure. She states that in this condition, he cannot come home. It is one thing to take care of a person who is able to get up, move around, feed himself, and at least get to the bathroom by himself, but this is a whole different problem in someone who cannot be mobile. He does not even have a cane or a walker at home. He is now admitted for metabolic encephalopathy due to dehydration which has been induced from C. difficile colitis. - Past Medical History Cardiovascular: reports: Hypertension, High cholesterol, Angina (on NTG since moving from [place] 12 yrs ago. ), Atrial fibrillation (new diagnosis w [facility] admit?) Respiratory: reports: Asthma, COPD, Shortness of breath Neuro: reports: Migraines Endocrine/Autoimmune: reports: Type 2 diabetes GI: reports: GERD (w chronic Caldwell's esophagus), Hiatal hernia, Other (ventral hernias) : reports: Nocturia HEENT: reports: Chronic vision loss, Chronic hearing loss Psych: reports: Depression, Anxiety Musculoskeletal: reports: Osteoarthritis, Gout, Chronic back pain, Other (Dupuytren's contracture right hand) Derm: reports: None MRSA Hx?: No Other Past Medical History: Chronic anemia. History of alcohol abuse - Past Surgical History General: reports: Colonoscopy (Screening 12/26 with tubular adenoma, surveillance April 2019 with hyperplastic polyp), EGD (12/26, 02/26, 05/03 all with glandular hyperplasia compatible with Caldwell's), Other HEENT: reports: Tonsil/Adenoidectomy, Other (Left ear surgery, nonspecific neck surgery) - CONSULTS | PROCEDURES Procedures: 1. Abdomen pelvis CT with complex fluid collection at the left posterior lung base with overlying rib fractures and chest wall fat stranding, subacute injury versus potential surgical changes. Small right posterior lobe consolidation and trace effusion. A single solid stool ball in the rectum causing partial colonic obstruction and mild rectosigmoid colitis. Distended urinary bladder. Cholelithiasis. Hiatal hernia. 2. Head CT without significant intracranial abnormality. Paranasal sinus disease can be seen. Prior left mastoidectomy change with prominent right-sided mastoid air cells. 3. Occult blood positive 4. C. difficile toxin positive in stool - HOSPITAL COURSE Hospital Course: Patient presented with a significant cognitive deficit that was not present with his last day with us. His sister confirmed that he is always had some type of cognitive disorder but since hospitalization with a ruptured esophagus and stay at [facility], then [facility], return to [facility] and return to [facility] "something happened". He was only home a week and refused to get out of a chair. Prior to coming home he was able to ambulate in his home even a few feet. With his return after a prolonged stay he was no longer ambulatory. He was not eating or drinking appropriately. Refused to get out of the chair and was soiling himself in the chair. With the above evaluation he was found to have C. difficile colitis, diarrhea, dehydration. He was started on IV fluids, diet adjusted and he gradually improved his intake. We calorie controlled him and his Lantus went from 110 units bid down to 70 units once a day with us. Diarrhea stopped 4 days to 5 days prior to discharge. His sister was overwhelmed with the idea of taking care of him and as such discharge was delayed by 2 days. Social work, discharge planning, and the patient sat and had a vivian conversation about his sister's ability to take care of her. As long as he is able to stand transfer, he can come home. They plan on hiring caregivers for the day and some for the night. If he cannot successfully stay at home with 180 hours a month of татьяна caregivers, he may have to be placed. He is very reluctant to be placed in assisted living facility or [facility] but reluctantly accepts he will have to do so if his sister cannot take care of him. During his stay there was constant request for opiates to control his pain. We will try to avoid giving him as much as possible. He had an episode of ortho static dizziness that required IV fluids. Heme positive stools were discussed with GI service at [facility] and they did not recommend repeating an upper or lower endoscopy. It is noted that he has a chronic loculated left pleural effusion ever since he had his ruptured esophagus. He is discharged to home after completing vancomycin therapy. He will be sent home with iron tablets, Renagel. At the time of discharge supine blood pressure was 156/86. Sitting blood pressure 167/69. Standing blood pressure 121/65. Temperature is 36.7. 98% on room air. He is a 5 foot 9 inch 85 kg white male that is disheveled. Shotty cervical adenopathy but supple neck. Coarse upper airway sounds but otherwise clear lungs. Irregular rate and rhythm. And abdomen that is soft, nontender, benign. He is easily frustrated. But behavior varies between expressing his frustration, and being pleasant, cooperative. Processing information is difficult for him. There is a definite cognitive change since the last time I met this gentleman. CT of the head was done to make sure he did not have a stroke and he did not. Per PT note done yesterday: Pt transferring w/ CGA-SBA during today's session. Pt completing sup-sit transfer independently and STS transfer w/ FWW and CGA as pt allowing walker to tip posteriorly during transfer. Pt ambulating to chair in room and performing stand pivot w/ FWW and SBA. Pt continues to exhibit deficits in gait, transfers, balance and overall functional mobility. Pt may benefit from OOPT following d/c from hospital. Greater than 30 minutes was spent coordinating discharge - ALLERGIES Allergies/Adverse Reactions: Allergies Allergy/AdvReac Type Severity Reaction Status Date / Time coconut oil AdvReac Intermediate Nausea Verified 09/19/20 14:44 - MEDICATIONS Home Medications: Ambulatory Orders Medication Instructions Recorded Confirmed Carvedilol [Coreg] 50 mg PO BID 09/19/20 09/19/20 Gabapentin [Neurontin] 200 mg PO TID 09/19/20 09/19/20 hydrALAZINE [Apresoline] 50 mg PO TID 09/19/20 09/20/20 Budesonide/Formoterol Fumarate 2 puffs INH BID 09/20/20 09/20/20 [Symbicort 160-4.5 Mcg Inhaler] Docusate Sodium 100Mg Capsule 100 mg PO BID 09/20/20 09/20/20 [Colace 100Mg Capsule] Ipratropium/Albuterol [Duoneb] 3 ml INH Q6H 09/20/20 09/20/20 Magnesium Oxide [Mag Ox] 400 mg PO BID 09/20/20 09/20/20 Pantoprazole [Protonix] 40 mg PO BID 09/20/20 09/20/20 Senna [Senokot] 17.2 mg PO BID 09/20/20 09/20/20 Sevelamer [Renagel] 800 mg PO TID 09/20/20 09/20/20 polyethylene glycoL 3350 17 gm PO DAILY 09/20/20 09/20/20 [Polyethylene Glycol 3350] Ferrous Sulfate [Feosol] 325 mg PO DAILY #30 tablet 09/29/20 Magnesium Citrate 100 mg PO DAILY #7 cap 09/29/20 Nortriptyline [Pamelor] 50 mg PO QPM #30 cap 09/29/20 Petrolatum,White [Skin Protectant] 1 diaph TP BID PRN #1 tub 09/29/20 - LABS Result Diagrams: 09/30/20 05:23 09/30/20 05:23
[2020-10-01 16:31] VITALS: BP 157/80
== END 2020-10-01 16:05 | disposition home or self-care (01) | DRG 371 ==
LOC: EDUNIT# → ED 14:31 → MS2 18:44
PROVIDERS: ADMIT Specialist; ATTEND Specialist
PROC: 30233N1 Transfusion of Nonautologous Red Blood Cells into Peripheral Vein, Percutaneous Approach (ICD-10-PCS; principal; 2020-09-22)
DX: A04.72 Enterocolitis due to Clostridium difficile, not specified as recurrent (principal); G93.41 Metabolic encephalopathy; K92.1 Melena; I48.20 Chronic atrial fibrillation, unspecified; J90 Pleural effusion, not elsewhere classified; E86.0 Dehydration; R53.1 Weakness; F09 Unspecified mental disorder due to known physiological condition; D64.9 Anemia, unspecified; G89.4 Chronic pain syndrome; I10 Essential (primary) hypertension; J44.9 Chronic obstructive pulmonary disease, unspecified; K22.70 Barrett's esophagus without dysplasia; F10.20 Alcohol dependence, uncomplicated; Z66 Do not resuscitate; R41.0 Disorientation, unspecified; E11.42 Type 2 diabetes mellitus with diabetic polyneuropathy; Z96.41 Presence of insulin pump (external) (internal); M10.9 Gout, unspecified; Z87.891 Personal history of nicotine dependence; E11.649 Type 2 diabetes mellitus with hypoglycemia without coma; J98.2 Interstitial emphysema; R41.3 Other amnesia; Z20.822 Contact with and (suspected) exposure to COVID-19; Z79.899 Other long term (current) drug therapy; R26.9 Unspecified abnormalities of gait and mobility
CPT/HCPCS: 0202U; 36415; 70450; 74177; 80048; 80053; 80306; 81003; 81599; 82272; 82728; 83036; 83540; 83605; 83690; 83735; 84100; 84466; 85014; 85018; 85025; 85027; 85610; 86850; 86900; 86901; 86920; 87493; 94640; 97110; 97116; 97161; 97165; 97530; 99285; A9270; J3490; J7120; J7626; J8499; P9016; Q9967; 81001; 87045; 87046; 87086; 87427

== ENCOUNTER 2020-10-21 12:31 | Outpatient (CLI) | payer MEDICAID | END 2020-10-21 23:59 | disposition critical access hospital (66) | LOC: EMS 12:31 | DX: R23.1 Pallor (principal); R63.0 Anorexia | CPT/HCPCS: A0425; A0429; A0999 ==

== ENCOUNTER 2020-10-21 12:56 | Emergency (ER) | payer MEDICAID ==
[2020-10-21] MEDS ORDERED: SODIUM CHLORIDE 0.9% 1,000 ML IV STA (13:28)
--- NOTE | 2020-10-21 13:36 | ED Physician Documentation ---
History of Present Illness - Stated complaint Stated Complaint: DEHYDRATION - Chief complaint Chief Complaint: General - History obtained from History obtained from: Patient, EMS - History of Present Illness Timing: Today Pain level max: 0 Pain level now: 0 - Additonal information Additional information: Patient is brought in by EMS today. He states that his caregiver called 911 because he was "dehydrated". He states he did have vomiting last weekend but has not had any for the past 2 days. Eating and drinking without difficulty today. Denies any abdominal pain, chest pain. No fever. No chills. Nothing makes it better or worse. He states currently he feels fine and does not know why he is here. He states he wants to go home. No diarrhea. No constipation. I did ask the patient if I could contact his caregiver for more information. He states that it is a new caregiver and he does not know her name or phone number. EMS also does not have a name or phone number. Review of Systems Ten Systems: 10 systems reviewed and negative Constitutional: denies: Fever, Chills Ears: denies: Ear pain Nose: denies: Rhinorrhea / runny nose, Congestion Respiratory: denies: Cough GI: reports: Nausea, Vomiting. denies: Abdominal Pain, Diarrhea : denies: Dysuria Skin: denies: Rash Musculoskeletal: denies: Neck pain, Back pain Neurologic: denies: Headache PD PAST MEDICAL HISTORY - Past Medical History Cardiovascular: Hypertension, High cholesterol, Angina, Atrial fibrillation Respiratory: Asthma, COPD, Shortness of breath Neuro: Migraines, Peripheral neuropathy Endocrine/Autoimmune: Type 2 diabetes GI: GERD, Hiatal hernia, Other : Nocturia HEENT: Chronic vision loss, Chronic hearing loss Psych: Depression, Anxiety Musculoskeletal: Osteoarthritis, Gout, Chronic back pain, Other Derm: None - Past Surgical History Past Surgical History: Yes General: Colonoscopy, EGD, Other HEENT: Tonsil/Adenoidectomy, Other - Present Medications Home Medications: Ambulatory Orders Medication Instructions Recorded Confirmed Carvedilol [Coreg] 50 mg PO BID 09/19/20 09/19/20 Gabapentin [Neurontin] 200 mg PO TID 09/19/20 09/19/20 hydrALAZINE [Apresoline] 50 mg PO TID 09/19/20 09/20/20 Budesonide/Formoterol Fumarate 2 puffs INH BID 09/20/20 09/20/20 [Symbicort 160-4.5 Mcg Inhaler] Docusate Sodium 100Mg Capsule 100 mg PO BID 09/20/20 09/20/20 [Colace 100Mg Capsule] Ipratropium/Albuterol [Duoneb] 3 ml INH Q6H 09/20/20 09/20/20 Magnesium Oxide [Mag Ox] 400 mg PO BID 09/20/20 09/20/20 Pantoprazole [Protonix] 40 mg PO BID 09/20/20 09/20/20 Senna [Senokot] 17.2 mg PO BID 09/20/20 09/20/20 Sevelamer [Renagel] 800 mg PO TID 09/20/20 09/20/20 polyethylene glycoL 3350 17 gm PO DAILY 09/20/20 09/20/20 [Polyethylene Glycol 3350] Ferrous Sulfate [Feosol] 325 mg PO DAILY #30 tablet 09/29/20 Magnesium Citrate 100 mg PO DAILY #7 cap 09/29/20 Nortriptyline [Pamelor] 50 mg PO QPM #30 cap 09/29/20 Petrolatum,White [Skin Protectant] 1 diaph TP BID PRN #1 tub 09/29/20 - Allergies Allergies/Adverse Reactions: Allergies Allergy/AdvReac Type Severity Reaction Status Date / Time coconut oil AdvReac Intermediate Nausea Verified 10/21/20 13:05 - Social History Does the pt smoke?: No Smoking Status: Never smoker Does the pt drink ETOH?: Yes Does the pt have substance abuse?: No - POLST Patient has POLST: No POLST Status: DNR (He states he doesn't want CPR and sister confirms this with my phone coversation) PD ED PE NORMAL - Vitals Vital signs reviewed: Yes - General General: Alert and oriented X 3, No acute distress, Well developed/nourished - HEENT HEENT: PERRL, Moist mucous membranes - Neck Neck: Supple, no meningeal sign - Cardiac Cardiac: RRR, Strong equal pulses - Respiratory Respiratory: No respiratory distress, Clear bilaterally - Abdomen Abdomen: Soft, Non tender, Non distended, Other (surgical incisions well healed.) - Derm Derm: Warm and dry - Extremities Extremities: No edema - Neuro Neuro: Alert and oriented X 3 - Psych Psych: Normal mood, Normal affect Results - Vitals Vitals: Vital Signs - 24 hr 10/21/20 10/21/20 10/21/20 13:05 15:08 17:00 Temperature 36.5 C Heart Rate 69 70 72 Respiratory 16 16 16 Rate Blood Pressure 164/82 H 181/82 H 189/86 H O2 Saturation 96 96 95 10/21/20 19:00 Temperature Heart Rate 71 Respiratory 19 Rate Blood Pressure 188/84 H O2 Saturation 92 Oxygen O2 Source Room air - Labs Labs: Laboratory Tests 10/21/20 10/21/20 10/21/20 13:42 13:42 15:00 WBC 15.2 H RBC 3.66 L Hgb 10.0 L Hct 32.2 L MCV 88.0 MCH 27.3 MCHC 31.1 L RDW 16.4 H Plt Count 430 MPV 9.8 Neut # (Auto) 12.9 H Lymph # (Auto) 1.2 L Boyd # (Auto) 0.7 Eos # (Auto) 0.3 Baso # (Auto) 0.1 Absolute Nucleated RBC 0.00 Nucleated RBC % 0.0 Sodium 138 Potassium 3.4 L Chloride 101 Carbon Dioxide 25 Anion Gap 12.0 BUN 15 Creatinine 0.9 Estimated GFR (MDRD) 86 L Glucose 138 H Calcium 9.0 Total Bilirubin 0.8 AST 47 H ALT 46 Alkaline Phosphatase 123 H Total Protein 7.6 Albumin 2.9 L Globulin 4.7 H Albumin/Globulin Ratio 0.6 L Lipase 18 L Urine Color DARK YELLOW Urine Clarity CLEAR Urine pH 6.0 Ur Specific Paradis 1.025 Urine Protein 100 H Urine Glucose (UA) NEGATIVE Urine Ketones NEGATIVE Urine Occult Blood NEGATIVE Urine Nitrite NEGATIVE Urine Bilirubin SMALL H Urine Urobilinogen 0.2 (NORMAL) Ur Leukocyte Esterase NEGATIVE Urine RBC None Seen Urine WBC 0-3 Ur Squamous Epith Cells FEW Squamous Urine Crystals 26-50 Ca Carbonate Urine Bacteria Few Urine Mucus Few Strands Ur Microscopic Review INDICATED Urine Culture Comments NOT INDICATED PD MEDICAL DECISION MAKING - ED course Complexity details: reviewed results, re-evaluated patient, considered differential, d/w patient ED course: Patient with mild leukocytosis, no diarrhea, no abdominal pain. Feels better after IV fluids. No other complaints at this time. His sister will come and pick him up. They did ask about a referral for hospice. This was placed. Social work was involved in the care as well. Patient counseled regarding signs and symptoms for which I believe and urgent re-evaluation would be necessary. Patient with good understanding of and agreement to plan and is comfortable going home at this time This document was made in part using voice recognition software. While efforts are made to proofread this document, sound alike and grammatical errors may occur. Departure - Departure Disposition: 01 Home, Self Care Clinical Impression: Vomiting Qualifiers: Vomiting type: unspecified Vomiting Intractability: non-intractable Nausea presence: with nausea Qualified Code(s): R11.2 - Nausea with vomiting, unspecified Condition: Good Instructions: ED Nausea Vomiting Follow-Up: your,doctor in 1 week [Other] Comments: You were given IV fluids today. It sounds as if you had vomiting this weekend, but none today. You still have an elevated white blood cell count. Return if you worsen including increasing pain, fevers, vomiting or diarrhea. Discharge Date/Time: 10/21/20 20:11
[2020-10-21 13:49] LABS: BASOPHILS # (AUTO) 0.1 10^3/uL (0.0-0.1); BASOPHILS % (AUTO) 0.4 %; EOSINOPHILS # (AUTO) 0.3 10^3/uL (0.0-0.7); EOSINOPHILS % (AUTO) 1.7 %; HCT - HEMATOCRIT 32.2 % (42.0-52.0); LYMPHOCYTES # (AUTO) 1.2 10^3/uL (1.5-3.5); LYMPHOCYTES % (AUTO) 7.6 %; MEAN CORPUSCULAR HEMOGLOBIN 27.3 pg (27.0-31.0); MEAN CORPUSCULAR HGB CONC 31.1 g/dL (32.0-36.0); MEAN PLATELET VOLUME 9.8 fL (7.4-11.4); MONOCYTES # (AUTO) 0.7 10^3/uL (0.0-1.0); MONOCYTES % (AUTO) 4.6 %; NEUTROPHILS # (AUTO) 12.9 10^3/uL (1.5-6.6); PLT - PLATELET COUNT 430 10^3/uL (130-450); RED BLOOD COUNT 3.66 10^6/uL (4.70-6.10); RED CELL DISTRIBUTION WIDTH 16.4 % (12.0-15.0); WHITE BLOOD COUNT 15.2 x10^3/uL (4.8-10.8)
[2020-10-21 14:03] LABS: ALBUMIN 2.9 g/dL (3.2-5.5); ALBUMIN/GLOBULIN RATIO 0.6 (1.0-2.2); BILIRUBIN,TOTAL 0.8 mg/dL (0.2-1.0); CREATININE 0.9 mg/dL (0.6-1.2); POTASSIUM 3.4 mmol/L (3.5-5.0); TOTAL PROTEIN 7.6 g/dL (6.7-8.2)
[2020-10-21 15:20] LABS: CLARITY,URINE CLEAR (CLEAR); GLUCOSE, URINE (UA) NEGATIVE (NEGATIVE); KETONES,URINE (UA) NEGATIVE (NEGATIVE); LEUKOCYTE ESTERASE, URINE NEGATIVE (NEGATIVE); NITRITE,URINE NEGATIVE (NEGATIVE); OCCULT BLOOD,URINE NEGATIVE (NEGATIVE); PROTEIN,URINE 100 mg/dL (NEGATIVE); UROBILINOGEN,URINE 0.2 (NORMAL) E.U./dL (NORMAL)
[2020-10-21 15:23] LABS: BILIRUBIN,URINE SMALL (NEGATIVE); ICTOTEST,URINE POSITIVE
[2020-10-21 15:41] LABS: BACTERIA,URINE Few /HPF (None Seen); MUCUS,URINE Few Strands; RBC,URINE None Seen /HPF (0-5); SQUAMOUS EPITHELIAL CELL,UR FEW Squamous (<= Few); WBC,URINE 0-3 /HPF (0-3)
[2020-10-21 19:05] VITALS: BP 188/84
== END 2020-10-21 20:11 | disposition home or self-care (01) ==
LOC: EDUNIT# → ED 12:56
DX: R11.2 Nausea with vomiting, unspecified (principal); I10 Essential (primary) hypertension; I48.91 Unspecified atrial fibrillation; E11.42 Type 2 diabetes mellitus with diabetic polyneuropathy; Z66 Do not resuscitate
CPT/HCPCS: 36415; 80053; 81001; 81003; 83690; 85025; 87086; 96360; 99284

== ENCOUNTER 2021-02-22 12:47 | Outpatient (CLI) | payer MEDICAID | END 2021-02-22 12:48 | disposition critical access hospital (66) | LOC: EMS 12:47 | DX: R11.2 Nausea with vomiting, unspecified (principal) | CPT/HCPCS: A0425; A0429; A0999 ==

== ENCOUNTER 2021-02-22 13:13 | Emergency (ER) | payer MEDICAID ==
[2021-02-22 13:50] LABS: BASOPHILS # (AUTO) 0.1 10^3/uL (0.0-0.1); BASOPHILS % (AUTO) 0.8 %; EOSINOPHILS # (AUTO) 0.2 10^3/uL (0.0-0.7); EOSINOPHILS % (AUTO) 1.4 %; HCT - HEMATOCRIT 40.7 % (42.0-52.0); HGB - HEMOGLOBIN 13.6 g/dL (14.0-18.0); LYMPHOCYTES # (AUTO) 1.3 10^3/uL (1.5-3.5); LYMPHOCYTES % (AUTO) 11.2 %; MEAN CORPUSCULAR HEMOGLOBIN 28.9 pg (27.0-31.0); MEAN CORPUSCULAR HGB CONC 33.4 g/dL (32.0-36.0); MEAN CORPUSCULAR VOLUME 86.4 fL (80.0-94.0); MEAN PLATELET VOLUME 8.9 fL (7.4-11.4); MONOCYTES # (AUTO) 0.5 10^3/uL (0.0-1.0); MONOCYTES % (AUTO) 4.4 %; NEUTROPHILS # (AUTO) 9.3 10^3/uL (1.5-6.6); NEUTROPHILS % (AUTO) 81.8 %; PLT - PLATELET COUNT 398 10^3/uL (130-450); RED BLOOD COUNT 4.71 10^6/uL (4.70-6.10); RED CELL DISTRIBUTION WIDTH 15.9 % (12.0-15.0); WHITE BLOOD COUNT 11.4 x10^3/uL (4.8-10.8)
--- NOTE | 2021-02-22 13:52 | ED Physician Documentation ---
PD HPI NVD - Stated complaint Stated Complaint: N/V DIZZY - Chief complaint Chief Complaint: Abd Pain - History obtained from History obtained from: Patient - History of Present Illness Timing - onset: How many days ago Timing - duration: Days (several days of worse nausea and vomiting, with lightheadedness. He states he has had poor PO tolerance and frequent nausea/vomiting episodes over 8 months.) Timing - details: Abrupt onset, Still present Associated symptoms: Abdominal pain (crampy lower pains, with fullness. Nausea w ith vomiting over several days. Feeling generally weak and states he "passed out" when walking. Might have struck head. Has some headache. Feeling lightheaded, with some vertigo.), Dizzy (describes lightheaded but also some indistinct vertigo with sitting up. Denies spinning sensation per se.) Contributing factors: No: Sick contact, Bad food Improved by: No: Vomiting Worsened by: Position (sitting up and standing feels most lightheaded.) Similar symptoms before: Diagnosis (states has had episodes of nausea with dx vertigo at times along with poor PO tolerance over about 8 months.) Recently seen: Clinic (seen at walk in elsewhere and given Scopolamine patch for similar in the past. He put one on yesterday without improvement.) Review of Systems Constitutional: denies: Fever, Chills Nose: reports: Congestion, Sinus pressure / pain. denies: Rhinorrhea / runny nose Throat: denies: Sore throat Respiratory: denies: Cough GI: reports: Nausea, Vomiting, Constipation. denies: Diarrhea, Hematemesis : denies: Dysuria, Frequency Neurologic: reports: Generalized weakness. denies: Focal weakness, Numbness Endocrine: reports: Weight loss PD PAST MEDICAL HISTORY - Past Medical History Cardiovascular: Hypertension, High cholesterol, Angina, Atrial fibrillation Respiratory: Asthma, COPD, Shortness of breath Neuro: Migraines, Peripheral neuropathy Endocrine/Autoimmune: Type 2 diabetes GI: GERD, Hiatal hernia, Other : Nocturia HEENT: Chronic vision loss, Chronic hearing loss Psych: Depression, Anxiety Musculoskeletal: Osteoarthritis, Gout, Chronic back pain, Other Derm: None - Past Surgical History Past Surgical History: Yes General: Colonoscopy, EGD, Other HEENT: Tonsil/Adenoidectomy, Other - Present Medications Home Medications: Ambulatory Orders Medication Instructions Recorded Confirmed Carvedilol [Coreg] 50 mg PO BID 09/19/20 09/19/20 Gabapentin [Neurontin] 200 mg PO TID 09/19/20 09/19/20 hydrALAZINE [Apresoline] 50 mg PO TID 09/19/20 09/20/20 Budesonide/Formoterol Fumarate 2 puffs INH BID 09/20/20 09/20/20 [Symbicort 160-4.5 Mcg Inhaler] Docusate Sodium 100Mg Capsule 100 mg PO BID 09/20/20 09/20/20 [Colace 100Mg Capsule] Ipratropium/Albuterol [Duoneb] 3 ml INH Q6H 09/20/20 09/20/20 Magnesium Oxide [Mag Ox] 400 mg PO BID 09/20/20 09/20/20 Pantoprazole [Protonix] 40 mg PO BID 09/20/20 09/20/20 Senna [Senokot] 17.2 mg PO BID 09/20/20 09/20/20 Sevelamer [Renagel] 800 mg PO TID 09/20/20 09/20/20 polyethylene glycoL 3350 17 gm PO DAILY 09/20/20 09/20/20 [Polyethylene Glycol 3350] Ferrous Sulfate [Feosol] 325 mg PO DAILY #30 tablet 09/29/20 Magnesium Citrate 100 mg PO DAILY #7 cap 09/29/20 Nortriptyline [Pamelor] 50 mg PO QPM #30 cap 09/29/20 Petrolatum,White [Skin Protectant] 1 diaph TP BID PRN #1 tub 09/29/20 Meclizine HCl [Motion Sickness] 25 mg PO Q6H PRN #30 tablet 02/22/21 Polyethylene Glycol 8000 17 gm PO Q2H PRN #454 gm 02/22/21 [Polyethylene Glycol] dexAMETHasone [Decadron] 4 mg PO DAILY #5 tablet 02/22/21 - Allergies Allergies/Adverse Reactions: Allergies Allergy/AdvReac Type Severity Reaction Status Date / Time coconut oil AdvReac Intermediate Nausea Verified 10/21/20 13:05 - Social History Does the pt smoke?: No Smoking Status: Never smoker Does the pt drink ETOH?: Yes Does the pt have substance abuse?: No - POLST Patient has POLST: No POLST Status: DNR (He states he doesn't want CPR and sister confirms this with my phone coversation) PD ED PE NORMAL - Vitals Vital signs reviewed: Yes - General General: Alert and oriented X 3, No acute distress. No: Well developed/nourished (thin and frail appearing) - HEENT HEENT: Atraumatic, PERRL, EOMI (no nystagmus noted.), Pharynx benign, Other (scopolamine patch noted behind right ear. ). No: Moist mucous membranes - Neck Neck: Supple, no meningeal sign, No bony TTP, No adenopathy - Cardiac Cardiac: RRR, No murmur - Respiratory Respiratory: Clear bilaterally - Abdomen Abdomen: Normal bowel sounds, Soft, Non distended, No organomegaly, Other (some lower abd fullness with decreased bowel sounds. Not distended per se. Tender lower abd generally without guarding nor percussion tender. ) - Rectal Rectal: Other (stool ball just to end of finger, and I loosened it up into pieces. Could not "scoop" it out per se. 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, No motor deficit, No sensory deficit, Normal speech Results - Vitals Vitals: Oxygen O2 Source Room air - Labs Labs: Laboratory Tests 02/22/21 02/22/21 13:46 13:46 WBC 11.4 H RBC 4.71 Hgb 13.6 L Hct 40.7 L MCV 86.4 MCH 28.9 MCHC 33.4 RDW 15.9 H Plt Count 398 MPV 8.9 Neut # (Auto) 9.3 H Lymph # (Auto) 1.3 L [place] # (Auto) 0.5 Eos # (Auto) 0.2 Baso # (Auto) 0.1 Absolute Nucleated RBC 0.00 Nucleated RBC % 0.0 Sodium 137 Potassium 3.5 Chloride 101 Carbon Dioxide 24 Anion Gap 12.0 BUN 15 Creatinine 0.9 Estimated GFR (MDRD) 86 L Glucose 122 H Calcium 8.9 Total Bilirubin 0.8 AST 13 ALT < 10 L Alkaline Phosphatase 70 Total Protein 6.9 Albumin 2.9 L Globulin 4.0 Albumin/Globulin Ratio 0.7 L Lipase 18 L - Rads (name of study) head CT Radiology: Prelim report reviewed (chronic frontal sinusitis on the left. No ICH. ), See rad report abd/pelvic CT Radiology: Prelim report reviewed (some colitis similar to September 2020, with now also large stool ball in rectum with local wall inflammation. ), See rad report PD MEDICAL DECISION MAKING - ED course Complexity details: re-evaluated patient (I did digital loosening of stool in rectum, then enema done around 18:00 pm. Nursing notes state "feeling better" at 1900. No notes of stool amount out. ), considered differential, d/w patient Departure - Departure Disposition: Home, Self Care Clinical Impression: Vertigo Constipation Qualifiers: Constipation type: unspecified constipation type Qualified Code(s): K59.00 - Constipation, unspecified Abdominal pain Qualifiers: Abdominal location: lower abdomen, unspecified Qualified Code(s): R10.30 - Lower abdominal pain, unspecified Condition: Stable Instructions: ED Constipation, ED Vertigo Unspecified Prescriptions: dexAMETHasone [Decadron] 4 mg PO DAILY #5 tablet Meclizine HCl [Motion Sickness] 25 mg PO Q6H PRN #30 tablet PRN Reason: Vertigo Polyethylene Glycol 8000 [Polyethylene Glycol] 17 gm PO Q2H PRN #454 gm PRN Reason: Constipation Comments: Continue your current medications. Add MiraLAX 17 g dose in 4 ounces of water every 2-3 hours tomorrow until better stool output. Use the enema at home when you get there this evening to help promote further stool output. Decadron daily for 5 days for inflammation/congestion leading to the ear pressure/vertigo. Meclizine 25 mg every 6-8 hours if needed for vertigo/dizziness. I would assume that to improve over the next several days. Recheck if not improved. Discharge Date/Time: 02/22/21 19:35
[2021-02-22 14:04] LABS: ALBUMIN 2.9 g/dL (3.2-5.5); ALBUMIN/GLOBULIN RATIO 0.7 (1.0-2.2); ALKALINE PHOSPHATASE 70 IU/L (42-121); ALT ALANINE AMINOTRANSFERASE < 10 IU/L (10-60); AST ASPARTATE AMINOTRANSFERASE 13 IU/L (10-42); BILIRUBIN,TOTAL 0.8 mg/dL (0.2-1.0); BUN - BLOOD UREA NITROGEN 15 mg/dL (6-20); CALCIUM 8.9 mg/dL (8.5-10.3); CARBON DIOXIDE - CO2 24 mmol/L (21-32); CHLORIDE 101 mmol/L (101-111); CREATININE 0.9 mg/dL (0.6-1.2); GFR - MDRD 86 (>89); GLUCOSE 122 mg/dL (70-100); LIPASE 18 U/L (22-51); POTASSIUM 3.5 mmol/L (3.5-5.0); SODIUM 137 mmol/L (135-145); TOTAL PROTEIN 6.9 g/dL (6.7-8.2)
[2021-02-22] MEDS ORDERED: SODIUM CHLORIDE 0.9% 1,000 ML IV STA (14:25)
[2021-02-22] MEDS ORDERED: PROMETHAZINE INJ 25 MG in SODIUM CHLORIDE 0.9% 50 ML IV STA (14:25)
[2021-02-22] MEDS ORDERED: DEXAMETHASONE 10 MG/ML VIAL IVP STA (14:26)
[2021-02-22] MEDS ORDERED: IOPAMIDOL-300 100 ML VIAL ONE (14:52)
[2021-02-22] MEDS ORDERED: PROMETHAZINE 25 MG/1 ML VIAL ONE (15:30)
--- NOTE | 2021-02-22 16:35 | CT Report ---
PROCEDURE: HEAD WO INDICATIONS: Vertigo and some headache TECHNIQUE: Noncontrast 4.5 mm thick angled axial sections acquired from the foramen magnum to the vertex. For r adiation dose reduction, the following was used: automated exposure control, adjustment of mA and/or kV according to patient size. COMPARISON: None. FINDINGS: Image quality: Excellent. CSF spaces: Basal cisterns are patent. No extra-axial fluid collections. Ventricles are normal in size and shape. Brain: No midline shift. No intracranial masses or hemorrhage. Pascal-white matter interface is norm al. Skull and face: Calvarium and visualized facial bones are intact, without suspicious lesions. Sinuses: Chronic fungal sinusitis on the left. Mild mucosal thickening in the right maxillary sinus. Probable chronic fungal sinusitis in the left sphenoid sinus. Aerated secretions with mucosal thicken ing in the right sphenoid sinus. IMPRESSION: No acute intracranial abnormality. Scattered paranasal sinus inflammatory changes including what is probably member services representative of chronic f ungal sinusitis in the left maxillary and sphenoid sinus. These findings are new from September 2020 exam. Reviewed by: Arnoldo Mcbride MD on 02/22/2021 4:34 PM PST Approved by: Arnoldo Mcbride MD on 02/22/2021 4:34 PM PST Station ID: [id number]
--- NOTE | 2021-02-22 16:42 | CT Report ---
PROCEDURE: Abdomen/Pelvis W INDICATIONS: Nausea and vomiting; abd distension CONTRAST: IV CONTRAST: Isovue 300 ml: 100 PO CONTRAST: *NO PO CONTRAST TECHNIQUE: After the administration of intravenous contrast, 5 mm thick sections acquired from the diaphragms to the symphysis. 5 mm thick coronal and sagittal reformats were acquired. For radiation dose reducti on, the following was used: automated exposure control, adjustment of mA and/or kV according to david ent size. COMPARISON: 09/19/2020 CT abdomen and pelvis 05/09/2020 CT angiogram of the abdomen FINDINGS: Image quality: Excellent. ABDOMEN: Small left pleural effusion. Partially visualized right pleural space is clear. Multiple gallstones layering dependently within the gallbladder, largest measuring 1.4 cm. No gallbla dder wall thickening or adjacent inflammatory change. Normal appearance of the liver, spleen, pancreas, adrenal glands, and kidneys. Large volume of inspissated stool in the rectum producing rectal distention with mild wall thickening and adjacent fat stranding. No abnormally dilated or thickened loops of bowel otherwise. Appendix is normal. No pericolonic or mesenteric inflammatory changes elsewhere. Small hiatal hernia. Nonaneurysmal atherosclerotic abdominal aorta. No free pelvic fluid. Urinary bladder and prostate demonstrate no acute finding. There is prostatomeg soy. No threshold enlarged pelvic or inguinal lymph nodes. No acute or suspicious osseous lesion. IMPRESSION: Large rectal stool ball producing rectal distention, rectal wall thickening, and perirectal fat stran ding. Findings are suggestive of stroke or parenchymal colitis. Findings are similar to the 09/19/2020 exam without associated obstruction seen on that exam. Left pleural fluid collection is not significantly changed. Reviewed by: Arnoldo Mcbride MD on 02/22/2021 4:41 PM PST Approved by: Arnoldo Mcbride MD on 02/22/2021 4:41 PM PST Station ID: [id number]
[2021-02-22] MEDS ORDERED: IOPAMIDOL-300 100 ML VIAL IVP ONE (16:58)
[2021-02-22] MEDS ORDERED: MECLIZINE 12.5 MG TABLET PO STA (18:07)
[2021-02-22] MEDS ORDERED: LACTULOSE 10 GM /15 ML UDC PO STA (18:07)
[2021-02-22] MEDS ORDERED: MINERAL OIL ENEMA 133 ML BOTTLE RC STA (18:07)
[2021-02-22 19:22] VITALS: BP 146/81
== END 2021-02-22 19:35 | disposition home or self-care (01) ==
LOC: EDUNIT# → ED 13:13
DX: R42 Dizziness and giddiness (principal); K59.00 Constipation, unspecified
CPT/HCPCS: 36415; 70450; 74177; 80053; 83690; 85025; 96365; 96375; 99284; A9270; J7040; Q9967

== ENCOUNTER 2023-07-08 10:45 | Outpatient (CLI) | payer MEDICAID ==
[2023-07-08 18:29] LABS: BASOPHILS # (AUTO) 0.1 10^3/uL (0.0-0.1); BASOPHILS % (AUTO) 1.2 %; EOSINOPHILS # (AUTO) 0.4 10^3/uL (0.0-0.7); EOSINOPHILS % (AUTO) 3.8 %; HCT - HEMATOCRIT 42.2 % (42.0-52.0); HGB - HEMOGLOBIN 13.1 g/dL (14.0-18.0); LYMPHOCYTES # (AUTO) 1.6 10^3/uL (1.5-3.5); LYMPHOCYTES % (AUTO) 13.7 %; MEAN CORPUSCULAR HEMOGLOBIN 27.5 pg (27.0-31.0); MEAN CORPUSCULAR VOLUME 88.7 fL (80.0-94.0); MEAN PLATELET VOLUME 10.4 fL (7.4-11.4); MONOCYTES # (AUTO) 0.6 10^3/uL (0.0-1.0); MONOCYTES % (AUTO) 5.2 %; NEUTROPHILS # (AUTO) 8.8 10^3/uL (1.5-6.6); NEUTROPHILS % (AUTO) 75.8 %; PLT - PLATELET COUNT 332 10^3/uL (130-450); RED BLOOD COUNT 4.76 10^6/uL (4.70-6.10); RED CELL DISTRIBUTION WIDTH 15.1 % (12.0-15.0); WHITE BLOOD COUNT 11.7 x10^3/uL (4.8-10.8)
[2023-07-08 18:50] LABS: ALBUMIN 4.2 g/dL (3.2-5.5); ALBUMIN/GLOBULIN RATIO 1.4 (1.0-2.2); ALKALINE PHOSPHATASE 60 IU/L (42-121); ALT ALANINE AMINOTRANSFERASE 12 IU/L (10-60); AST ASPARTATE AMINOTRANSFERASE 17 IU/L (10-42); BILIRUBIN,TOTAL 0.4 mg/dL (0.2-1.0); BUN - BLOOD UREA NITROGEN 31 mg/dL (6-20); CALCIUM 9.7 mg/dL (8.5-10.3); CARBON DIOXIDE - CO2 26 mmol/L (21-32); CHLORIDE 101 mmol/L (101-111); CHOL/HDL RATIO 4.7 (<5.0); CHOLESTEROL 211 mg/dL; CREATININE 1.3 mg/dL (0.6-1.3); GFR - MDRD 56 (>89); GLUCOSE 123 mg/dL (74-104); HDL CHOLESTEROL 45 mg/dL; LDL CHOLESTEROL,CALCULATED 120 mg/dL; LDL/HDL RATIO 2.7 (<3.6); POTASSIUM 4.4 mmol/L (3.5-4.5); SODIUM 135 mmol/L (135-145); TOTAL PROTEIN 7.1 g/dL (6.4-8.9); TRIGLYCERIDES 229 mg/dL (48-352); URIC ACID 6.2 mg/dL (4.4-7.6); VLDL CHOLESTEROL 46 mg/dL
[2023-07-08 18:58] LABS: THYROID STIMULATING HORMONE 2.13 uIU/mL (0.34-5.60)
[2023-07-08 20:45] LABS: ESTIMATED AVERAGE GLUCOSE 137 mg/dL (70-100); HEMOGLOBIN A1c% 6.4 % (4.27-6.07)
[2023-07-10 07:08] LABS: HIV SCREEN 4TH GENERATION Non Reactive (Non Reactive)
[2023-07-11 06:08] LABS: HBsAG SCREEN Negative (Negative)
== END 2023-07-08 10:46 | disposition home or self-care (01) ==
LOC: LAB.N 10:45
PROVIDERS: ATTEND Internal Medicine
DX: E78.5 Hyperlipidemia, unspecified (principal); Z12.5 Encounter for screening for malignant neoplasm of prostate; K59.00 Constipation, unspecified; M10.9 Gout, unspecified; I10 Essential (primary) hypertension; E11.8 Type 2 diabetes mellitus with unspecified complications; Z79.4 Long term (current) use of insulin; F19.11 Other psychoactive substance abuse, in remission
CPT/HCPCS: 36415; 80053; 80061; 82043; 82570; 83036; 83721; 84153; 84443; 84550; 85025; 86704; 86803; 87340; 87389